=== PATIENT | female | born 1950 | race Caucasian/White ===

== ENCOUNTER 2019-05-31 13:54 | Outpatient (CLI) | payer MEDICARE, SELFPAY ==
--- NOTE | ~2019-05-31 | US_ITS ---
EXAMINATION: US venous doppler LE RT DATE: 05/31/2019 14:48 INDICATION: Right lower limb pain TECHNIQUE: Grayscale ultrasound images without and with compression and Doppler ultrasound images of the right lower extremity veins were obtained. COMPARISON: 03/09/2018 FINDINGS: The visualized portions of right common femoral vein, profunda (deep) femoral vein, femoral vein, pop liteal vein, peroneal trunk, posterior tibial veins, peroneal veins, gastrocnemius vein and greater s aphenous vein outflow remain patent. Prominent but compressible subcutaneous varicosities at the late ral aspect of the proximal right calf. IMPRESSION: 1. No deep venous thrombosis in the right lower limb. Reviewed, dictated and finalized at location A.
== END 2019-05-31 13:55 | disposition home or self-care (01) ==
LOC: CHSIMG 13:56
PROVIDERS: PCP Internal Medicine; Visit Provider Internal Medicine
DX: M79.661 Pain in right lower leg (principal)
CPT/HCPCS: 93971

== ENCOUNTER 2019-07-03 14:21 | Outpatient (CLI) | payer MEDICARE, SELFPAY ==
--- NOTE | ~2019-07-03 | XR_ITS ---
XR shoulder LT min 2V DATE: 07/03/2019 14:53 INDICATION: Left shoulder pain since April. CPPD disease TECHNIQUE: 4 views COMPARISON: 09/08/2015 left shoulder FINDINGS: There is severe osteoarthritis and mild inferior subluxation at the left glenohumeral joint . There is articular cartilage (chondrocalcinosis) glenohumeral joint consistent with given history o f chronic pyrophosphate deposition disease, as well as some soft tissue calcifications around the acr omioclavicular joint. Osteopenia. No fracture or dislocation, periosteal reaction or bone destruction of the left shoulder is detected. IMPRESSION: Severe osteoarthritis and mild inferior subluxation at the left glenohumeral joint Chondrocalcinosis of the left glenohumeral joint and calcifications around the acromioclavicular join t, consistent with history of chronic pyrophosphate deposition disease Reviewed, dictated and finalized at location A. IMPRESSION: Severe osteoarthritis and mild inferior subluxation at the left gle nohumeral joint Chondrocalcinosis of the left glenohumeral joint and calcifications around the acromioclavicular joint, consistent with history of chronic pyrophosphate depos ition disease
== END 2019-07-03 14:22 | disposition home or self-care (01) ==
LOC: CHSIMG 14:23
PROVIDERS: PCP Internal Medicine; Visit Provider Internal Medicine
DX: M25.512 Pain in left shoulder (principal)
CPT/HCPCS: 73030

== ENCOUNTER 2019-09-17 10:32 | Outpatient (CLI) | payer MEDICARE, SELFPAY ==
--- NOTE | ~2019-09-17 | XR_ITS ---
XR chest 2V DATE: 09/17/2019 10:58 INDICATION: Preoperative evaluation for colon surgery. Hypertension. TECHNIQUE: PA and lateral views COMPARISON: None FINDINGS: There is a moderately large hiatal hernia. Heart size is normal. There is aortic unfolding. No hilar or mediastinal enlargement. No pulmonary infiltrate or consolidation, pleural effusion or p ulmonary vascular congestion or pneumothorax. Surgical clips overlie the upper abdomen, consistent with cholecystectomy. IMPRESSION: Moderately large hiatal hernia No active cardiopulmonary disease Reviewed, dictated and finalized at location B.
[2019-09-17 10:43] LABS: Basophils Absolute Auto 0.04 K/mm3 (0.00-0.10); Basophils Percent Auto 0.4 % (0.0-1.0); Hematocrit 37.2 % (35.0-42.0); Hemoglobin 12.3 g/dL (11.7-13.8); Immature Granulocyte Absolute 0.07 K/mm3 (0.00-0.00); Immature Granulocyte Percent A 0.7 % (0.0-0.0); Lymphocytes Percent Auto 18.9 % (18.0-42.0); Mean Corpuscular HGB Conc 33.1 g/dL (32.0-36.0); Mean Corpuscular Hemoglobin 31.1 pg (27.0-31.0); Mean Corpuscular Volume 94.2 fL (78.0-102.0); Mean Platelet Volume 11.4 fl (9.2-11.8); Monocytes Absolute Auto 0.82 K/mm3 (0.10-0.90); Monocytes Percent Auto 8.2 % (2.0-11.0); Neutrophils Absolute Auto 6.8 K/mm3 (1.7-7.2); Neutrophils Percent Auto 67.8 % (50.0-70.0); Platelet Count Result 279 K/mm3 (150-420); Red Blood Count 3.95 M/mm3 (4.20-5.40); Red Cell Distribution Width 13.7 % (11.6-14.4)
[2019-09-17 11:35] LABS: Alanine Aminotransferase 28 U/L (14-59); Albumin Level 3.1 g/dL (3.4-5.0); Alkaline Phosphatase 132 U/L (46-116); Anion Gap 12.7 mmol/L (7-16); Aspartate Amino Transferase 24 U/L (15-37); Bilirubin,Total 0.4 mg/dL (0.00-1.00); Blood Urea Nitrogen 29 mg/dL (7-18); Calcium 9.5 mg/dL (8.5-10.1); Carbon Dioxide 29 mmol/L (21-32); Chloride 103 mmol/L (98-108); Estimated Glomerular Filt Rate 34; Glucose 160 mg/dL (70-99); Osmolality Calculated 298 mOsm/kg (285-295); Potassium 4.7 mmol/L (3.5-5.1); Sodium 140 mmol/L (136-145); Total Protein 6.9 g/dL (6.4-8.2)
[2019-09-17 15:02] LABS: Add Urine Microscopic? YES; Appearance Urine Cloudy (Clear); Bilirubin Urine Negative (Negative); Blood Urine 1+ (Negative); Color Urine Yellow (Yellow); Glucose Urine UA Negative (Negative); Ketones Urine Negative (Negative); Leukocyte Esterase Ur 3+ LEU/UL (Negative); Nitrate Urine Negative (Negative); Protein Urine Negative (Negative); Specific Grav Ur 1.015 (1.010-1.020); Urobilinogen Urine 0.2 mg/dL (0.2-1.0); pH Urine 5.5 (5.0-8.0)
[2019-09-17 15:08] LABS: Bacteria Urine 1+ /hpf; Squamous Epithelial Cell Urine Few /hpf (Few); WBC Urine >75 /hpf (0-3)
[2019-09-17 16:23] LABS: Hemoglobin A1C 7.5 % (<5.7)
== END 2019-09-17 10:33 | disposition home or self-care (01) ==
LOC: CHSLAB 10:34
PROVIDERS: PCP Internal Medicine; Visit Provider Internal Medicine
DX: I12.9 Hypertensive chronic kidney disease with stage 1 through stage 4 chronic kidney disease, or unspecified chronic kidney disease (principal); N18.9 Chronic kidney disease, unspecified; Z01.818 Encounter for other preprocedural examination; R73.01 Impaired fasting glucose; R82.90 Unspecified abnormal findings in urine
CPT/HCPCS: 36415; 71046; 80053; 81001; 83036; 85025; 87077; 87086; 87088; 87186

== ENCOUNTER 2019-10-05 14:17 | Emergency (ER) | payer MEDICARE, SELFPAY ==
[2019-10-05 14:37] VITALS: BP 139/70; PULSE 65; RESP 20; TEMP 36.7; O2SAT 97
[2019-10-05 15:05] LABS: Add Urine Microscopic? YES; Appearance Urine Clear (Clear); Bilirubin Urine Negative (Negative); Blood Urine 1+ (Negative); Color Urine Yellow (Yellow); Glucose Urine UA 3+ (Negative); Ketones Urine Negative (Negative); Leukocyte Esterase Ur Negative (Negative); Nitrate Urine Negative (Negative); Protein Urine Negative (Negative); Urobilinogen Urine 0.2 mg/dL (0.2-1.0)
--- NOTE | 2019-10-05 15:07 | ED.FEMALEGU ---
HPI - Female Genitourinary General Chief complaint: Urogenital-Female Stated complaint: pain in her blatter Source: patient and family Mode of arrival: ambulatory Limitations: no limitations History of Present Illness HPI Narrative: this is a 69-year-old female that presents status post a colon surgery for a mass approximately 1 to 2 weeks ago and was discharged with a Pederson approximately 1 week ago, the patient was seen by her primary care physician yesterday and the Pederson was removed and since then the patient was in a not able to urinate and having suprapubic fullness and pressure with the inability to pass urine. Patient denies any fever chills there is no flank pain, no hematuria no nausea vomiting no chest pain no abdominal pain. MD elicited complaint: dysuria Onset (ago): week(s) Severity: moderate Female Urogenital Radiation: Suprapubic Severity scale (1-10): 4 Quality of pain: other ( Fullness) Consistency: constant Vaginal discharge: none Vaginal bleeding: none Urinary symptoms: Difficulty Urinating Exacerbating factors: none Relieving factors: none Associated symptoms: denies other symptoms Related Data Home Medications Medication Instructions Recorded Confirmed empagliflozin [Jardiance] 10 mg PO DAILY 10/05/19 10/05/19 fexofenadine 180 mg PO DAILY 10/05/19 10/05/19 omeprazole 20 mg PO DAILY 10/05/19 10/05/19 propranolol 40 mg PO Q12H 10/05/19 10/05/19 sertraline 25 mg PO DAILY 10/05/19 10/05/19 verapamil 180 mg PO DAILY 10/05/19 10/05/19 Allergies Allergy/AdvReac Type Severity Reaction Status Date / Time diclofenac Allergy Unknown Verified 09/08/15 10:22 levofloxacin Allergy Unknown Verified 09/08/15 10:21 misoprostol Allergy Unknown Verified 09/08/15 10:22 nortriptyline Allergy Unknown Verified 09/08/15 10:22 paroxetine Allergy Unknown Verified 09/08/15 10:22 Sulfa (Sulfonamide Allergy Unknown Verified 09/08/15 10:21 Antibiotics) Review of Systems Review of Systems: All systems reviewed & are unremarkable except as noted in HPI and below PMFSH Past Medical History Medical History Depression Diabetes mellitus GERD (gastroesophageal reflux disease) HTN (hypertension) Family History Family History Other Diabetes mellitus Family history of arthritis Family history of malignant neoplasm Hypertension Social History Social History Smoking status: Former smoker Smoking end date: 03/13/01 Alcohol intake: current Exam Const: General: no acute distress and alert Orientation/consciousness: patient oriented x3 HENMT: Head: normal to inspection Eyes: Conjunctivae: conjunctivae normal Pupils: Equal, round and reactive pupils present EOM: EOMs intact bilaterally Neck: Neck: normal visual inspection, no lymphadenopathy and no meningeal signs Chest: Chest palpation & inspection: normal inspection of the chest Resp: Effort & Inspection: normal respiratory effort Auscultation: clear to auscultation bilaterally Cardio: Rate: regular rate Rhythm: regular rhythm GI: GI Palp: Yes Soft to palpation : General: Yes no CVA tenderness Other: suprapubic tenderness Urinary Catheter: Urinary Catheter: patent and draining and urine clear Back/Spine/Pelvis: Back: no CVA tenderness Skin: General skin exam: normal color Rashes: no rashes Neuro: General: patient oriented x3 and moves all extremities Course Course Emergency Course: Pederson was replaced patient doing much better less fullness currently there was no fevers no. Vital Signs Vital signs: Vital Signs Temperature 36.7 C 10/05/19 14:37 Pulse Rate 65 10/05/19 14:37 Respiratory Rate 20 10/05/19 14:37 Blood Pressure 139/70 10/05/19 14:37 Pulse Oximetry 97 10/05/19 14:37 Temperature 36.7 C 10/05/19 14:37 Pulse Rate 65 07/2
[2019-10-05 15:09] LABS: RBC Urine 0-2 /hpf (0-2); Squamous Epithelial Cell Urine Few /hpf (Few); WBC Urine None seen /hpf (0-3)
[2019-10-05 15:10] LABS: Bacteria Urine None seen /hpf; Mucus Urine Few /lpf
[2019-10-05 15:39] LABS: Alanine Aminotransferase 38 U/L (14-59); Albumin Level 2.8 g/dL (3.4-5.0); Alkaline Phosphatase 99 U/L (46-116); Anion Gap 13.3 mmol/L (7-16); Aspartate Amino Transferase 27 U/L (15-37); Bilirubin,Total 0.3 mg/dL (0.00-1.00); Blood Urea Nitrogen 27 mg/dL (7-18); Carbon Dioxide 25 mmol/L (21-32); Chloride 101 mmol/L (98-108); Estimated CRCL calculation 38 ml/min; Estimated Glomerular Filt Rate 33; Glucose 139 mg/dL (70-99); Osmolality Calculated 287 mOsm/kg (285-295); Potassium 4.3 mmol/L (3.5-5.1); Sodium 135 mmol/L (136-145)
[2019-10-05 16:14] VITALS: BP 140/85; PULSE 72; RESP 18; TEMP 36.6; O2SAT 97
== END 2019-10-05 16:18 | disposition home or self-care (01) ==
PROVIDERS: Emergency Provider Emergency Medicine; PCP Internal Medicine
DX: R33.9 Retention of urine, unspecified (principal)
CPT/HCPCS: 36415; 80053; 81001; 99282; 99283

== ENCOUNTER 2019-10-14 09:09 | Outpatient (CLI) | payer MEDICARE, SELFPAY ==
--- NOTE | 2019-10-14 09:27 | PC.NURSE ---
0915 Patient here for a yañez catheter indwelling removeal. Has had it in since around September 29, 2019 s/p some surgeries patient has had. #16 F catheter removed with ease. Clear yellow urine noted in bag-discarded. Instructed on catheter removal and able to void without it. Safe exit of hospital.
== END 2019-10-14 09:10 | disposition home or self-care (01) ==
LOC: CHSTREATRM 09:10
PROVIDERS: PCP Internal Medicine; Visit Provider Internal Medicine
DX: Z46.6 Encounter for fitting and adjustment of urinary device (principal)
CPT/HCPCS: 51702

== ENCOUNTER 2019-11-08 10:55 | Outpatient (CLI) | payer MEDICARE, SELFPAY ==
--- NOTE | ~2019-11-08 | US_ITS ---
EXAMINATION: US venous doppler [facility] DATE: 11/08/2019 13:01 INDICATION: Lower limb edema. TECHNIQUE: Grayscale ultrasound images without and with compression and Doppler ultrasound images of the bilateral lower extremity veins were obtained. COMPARISON: Ultrasound 05/31/2019 FINDINGS: The visualized portions of right common femoral vein, profunda (deep) femoral vein, femoral vein, pop liteal vein, peroneal veins, posterior tibial veins, and greater saphenous vein outflow are patent. The visualized portions of left common femoral vein, profunda femoral vein, femoral vein, popliteal v ein, peroneal veins, posterior tibial veins, and greater saphenous vein outflow are patent. IMPRESSION: 1. No deep venous thrombosis. Reviewed, dictated and finalized at location B.
[2019-11-08 11:30] LABS: Basophils Absolute Auto 0.04 K/mm3 (0.00-0.10); Basophils Percent Auto 0.4 % (0.0-1.0); Eosinophils Percent Auto 3.2 % (1.0-6.0); Hematocrit 33.2 % (35.0-42.0); Hemoglobin 10.3 g/dL (11.7-13.8); Immature Granulocyte Absolute 0.05 K/mm3 (0.00-0.00); Immature Granulocyte Percent A 0.5 % (0.0-0.0); Lymphocytes Absolute Auto 1.74 K/mm3 (1.10-4.50); Lymphocytes Percent Auto 18.5 % (18.0-42.0); Mean Corpuscular Hemoglobin 29.5 pg (27.0-31.0); Mean Corpuscular Volume 95.1 fL (78.0-102.0); Mean Platelet Volume 11.7 fl (9.2-11.8); Monocytes Absolute Auto 0.99 K/mm3 (0.10-0.90); Monocytes Percent Auto 10.5 % (2.0-11.0); Neutrophils Absolute Auto 6.3 K/mm3 (1.7-7.2); Neutrophils Percent Auto 66.9 % (50.0-70.0); Platelet Count Result 245 K/mm3 (150-420); Red Blood Count 3.49 M/mm3 (4.20-5.40); Red Cell Distribution Width 13.9 % (11.6-14.4); White Blood Count 9.4 K/mm3 (4.8-10.8)
[2019-11-08 11:58] LABS: BNP 500 pg/mL (0-100)
[2019-11-08 12:55] LABS: Alanine Aminotransferase 20 U/L (14-59); Albumin Level 2.8 g/dL (3.4-5.0); Alkaline Phosphatase 124 U/L (46-116); Anion Gap 8 mmol/L (8-16); Aspartate Amino Transferase 26 U/L (15-37); Bilirubin,Total 0.2 mg/dL (0.00-1.00); Blood Urea Nitrogen 31 mg/dL (7-18); Calcium 8.5 mg/dL (8.5-10.1); Carbon Dioxide 27 mmol/L (21-32); Chloride 106 mmol/L (98-108); Estimated Glomerular Filt Rate 33; Glucose 131 mg/dL (70-99); Osmolality Calculated 300 mOsm/kg (285-295); Potassium 4.5 mmol/L (3.5-5.1); Sodium 141 mmol/L (136-145); Total Protein 6.8 g/dL (6.4-8.2)
== END 2019-11-08 10:56 | disposition home or self-care (01) ==
PROVIDERS: PCP Internal Medicine; Visit Provider Internal Medicine
DX: R60.9 Edema, unspecified (principal); R21 Rash and other nonspecific skin eruption; I50.9 Heart failure, unspecified
CPT/HCPCS: 36415; 80053; 83880; 85025; 93970

== ENCOUNTER 2019-11-22 08:11 | Outpatient (CLI) | payer MEDICARE, SELFPAY ==
[2019-11-22 08:21] LABS: Basophils Absolute Auto 0.05 K/mm3 (0.00-0.10); Basophils Percent Auto 0.4 % (0.0-1.0); Eosinophils Absolute Auto 0.37 K/mm3 (0.02-0.50); Eosinophils Percent Auto 2.7 % (1.0-6.0); Hematocrit 33.9 % (35.0-42.0); Hemoglobin 10.8 g/dL (11.7-13.8); Immature Granulocyte Absolute 0.09 K/mm3 (0.00-0.00); Immature Granulocyte Percent A 0.7 % (0.0-0.0); Lymphocytes Absolute Auto 1.91 K/mm3 (1.10-4.50); Mean Corpuscular HGB Conc 31.9 g/dL (32.0-36.0); Mean Corpuscular Hemoglobin 28.9 pg (27.0-31.0); Mean Corpuscular Volume 90.6 fL (78.0-102.0); Monocytes Absolute Auto 1.52 K/mm3 (0.10-0.90); Monocytes Percent Auto 11.1 % (2.0-11.0); Neutrophils Absolute Auto 9.8 K/mm3 (1.7-7.2); Neutrophils Percent Auto 71.1 % (50.0-70.0); Platelet Count Result 294 K/mm3 (150-420); Red Blood Count 3.74 M/mm3 (4.20-5.40); Red Cell Distribution Width 13.5 % (11.6-14.4); White Blood Count 13.7 K/mm3 (4.8-10.8)
[2019-11-22 09:25] LABS: BNP 516 pg/mL (0-100)
[2019-11-22 09:51] LABS: Alanine Aminotransferase 40 U/L (14-59); Albumin Level 3.3 g/dL (3.4-5.0); Alkaline Phosphatase 139 U/L (46-116); Anion Gap 10 mmol/L (8-16); Aspartate Amino Transferase 33 U/L (15-37); Bilirubin,Total 0.4 mg/dL (0.00-1.00); Blood Urea Nitrogen 21 mg/dL (7-18); Calcium 9.1 mg/dL (8.5-10.1); Carbon Dioxide 28 mmol/L (21-32); Chloride 102 mmol/L (98-108); Estimated Glomerular Filt Rate 37; Glucose 130 mg/dL (70-99); Osmolality Calculated 295 mOsm/kg (285-295); Potassium 4.6 mmol/L (3.5-5.1); Sodium 140 mmol/L (136-145); Total Protein 8.2 g/dL (6.4-8.2)
== END 2019-11-22 08:12 | disposition home or self-care (01) ==
LOC: CHSLAB 08:12
PROVIDERS: PCP Internal Medicine; Visit Provider Internal Medicine
DX: R60.9 Edema, unspecified (principal); I50.9 Heart failure, unspecified
CPT/HCPCS: 36415; 80053; 83880; 85025

== ENCOUNTER 2019-12-23 10:33 | Outpatient (CLI) | payer MEDICARE, SELFPAY ==
[2019-12-23 11:02] LABS: Basophils Absolute Auto 0.06 K/mm3 (0.00-0.10); Basophils Percent Auto 0.5 % (0.0-1.0); Eosinophils Absolute Auto 0.36 K/mm3 (0.02-0.50); Eosinophils Percent Auto 3.2 % (1.0-6.0); Immature Granulocyte Absolute 0.06 K/mm3 (0.00-0.00); Immature Granulocyte Percent A 0.5 % (0.0-0.0); Lymphocytes Absolute Auto 1.99 K/mm3 (1.10-4.50); Lymphocytes Percent Auto 17.7 % (18.0-42.0); Mean Corpuscular HGB Conc 31.3 g/dL (32.0-36.0); Mean Corpuscular Hemoglobin 27.2 pg (27.0-31.0); Mean Platelet Volume 11.3 fl (9.2-11.8); Monocytes Absolute Auto 1.21 K/mm3 (0.10-0.90); Monocytes Percent Auto 10.8 % (2.0-11.0); Neutrophils Absolute Auto 7.5 K/mm3 (1.7-7.2); Neutrophils Percent Auto 67.3 % (50.0-70.0); Platelet Count Result 271 K/mm3 (150-420); Red Blood Count 3.68 M/mm3 (4.20-5.40); Red Cell Distribution Width 14.7 % (11.6-14.4); White Blood Count 11.2 K/mm3 (4.8-10.8)
[2019-12-23 11:22] LABS: BNP 677 pg/mL (0-100)
[2019-12-23 11:35] LABS: Alanine Aminotransferase 26 U/L (14-59); Albumin Level 2.9 g/dL (3.4-5.0); Alkaline Phosphatase 137 U/L (46-116); Anion Gap 9 mmol/L (8-16); Aspartate Amino Transferase 22 U/L (15-37); Bilirubin,Total 0.4 mg/dL (0.00-1.00); Blood Urea Nitrogen 20 mg/dL (7-18); Calcium 8.9 mg/dL (8.5-10.1); Carbon Dioxide 28 mmol/L (21-32); Chloride 104 mmol/L (98-108); Estimated Glomerular Filt Rate 39; Glucose 112 mg/dL (70-99); Osmolality Calculated 295 mOsm/kg (285-295); Potassium 4.5 mmol/L (3.5-5.1); Sodium 141 mmol/L (136-145); Total Protein 6.9 g/dL (6.4-8.2)
== END 2019-12-23 10:34 | disposition home or self-care (01) ==
LOC: CHSLAB 10:35
PROVIDERS: PCP Internal Medicine; Visit Provider Internal Medicine
DX: N18.30 Chronic kidney disease, stage 3 unspecified (principal); D64.9 Anemia, unspecified; I50.9 Heart failure, unspecified
CPT/HCPCS: 36415; 80053; 83880; 85025

== ENCOUNTER 2020-01-28 08:56 | Outpatient (CLI) | payer MEDICARE, SELFPAY ==
[2020-01-28 09:10] LABS: Basophils Absolute Auto 0.07 K/mm3 (0.00-0.10); Basophils Percent Auto 0.6 % (0.0-1.0); Eosinophils Absolute Auto 0.49 K/mm3 (0.02-0.50); Eosinophils Percent Auto 4.3 % (1.0-6.0); Hematocrit 33.5 % (35.0-42.0); Hemoglobin 10.3 g/dL (11.7-13.8); Immature Granulocyte Absolute 0.05 K/mm3 (0.00-0.00); Immature Granulocyte Percent A 0.4 % (0.0-0.0); Lymphocytes Absolute Auto 2.76 K/mm3 (1.10-4.50); Lymphocytes Percent Auto 24.1 % (18.0-42.0); Mean Corpuscular HGB Conc 30.7 g/dL (32.0-36.0); Mean Corpuscular Hemoglobin 26.8 pg (27.0-31.0); Mean Platelet Volume 11.2 fl (9.2-11.8); Monocytes Absolute Auto 1.18 K/mm3 (0.10-0.90); Monocytes Percent Auto 10.3 % (2.0-11.0); Neutrophils Absolute Auto 6.9 K/mm3 (1.7-7.2); Neutrophils Percent Auto 60.3 % (50.0-70.0); Platelet Count Result 331 K/mm3 (150-420); Red Blood Count 3.85 M/mm3 (4.20-5.40); Red Cell Distribution Width 15.9 % (11.6-14.4); White Blood Count 11.5 K/mm3 (4.8-10.8)
[2020-01-28 09:38] LABS: Hemoglobin A1C 7.4 % (<5.7)
[2020-01-28 09:44] LABS: BNP 656 pg/mL (0-100)
[2020-01-28 10:13] LABS: Alanine Aminotransferase 25 U/L (14-59); Albumin Level 3.3 g/dL (3.4-5.0); Alkaline Phosphatase 127 U/L (46-116); Anion Gap 7 mmol/L (8-16); Aspartate Amino Transferase 20 U/L (15-37); Bilirubin,Total 0.3 mg/dL (0.00-1.00); Blood Urea Nitrogen 27 mg/dL (7-18); Calcium 9.7 mg/dL (8.5-10.1); Carbon Dioxide 29 mmol/L (21-32); Chloride 104 mmol/L (98-108); Estimated Glomerular Filt Rate 35; Glucose 114 mg/dL (70-99); Osmolality Calculated 296 mOsm/kg (285-295); Potassium 4.7 mmol/L (3.5-5.1); Sodium 140 mmol/L (136-145); Total Protein 7.9 g/dL (6.4-8.2)
== END 2020-01-28 08:57 | disposition home or self-care (01) ==
LOC: CHSLAB 08:59
PROVIDERS: PCP Internal Medicine; Visit Provider Internal Medicine
DX: I50.9 Heart failure, unspecified (principal); E11.9 Type 2 diabetes mellitus without complications
CPT/HCPCS: 36415; 80053; 83036; 83880; 85025

== ENCOUNTER 2020-01-30 12:14 | Outpatient (CLI) | payer MEDICARE, SELFPAY | END 2020-01-30 12:15 | disposition home or self-care (01) | PROVIDERS: PCP Internal Medicine; Visit Provider Internal Medicine | DX: I50.9 Heart failure, unspecified (principal); E11.9 Type 2 diabetes mellitus without complications | CPT/HCPCS: 93306 ==

== ENCOUNTER 2020-02-12 10:17 | Outpatient (CLI) | payer MEDICARE, SELFPAY ==
[2020-02-12 10:31] LABS: Basophils Absolute Auto 0.05 K/mm3 (0.00-0.10); Basophils Percent Auto 0.5 % (0.0-1.0); Eosinophils Absolute Auto 0.36 K/mm3 (0.02-0.50); Eosinophils Percent Auto 3.6 % (1.0-6.0); Hematocrit 34.2 % (35.0-42.0); Hemoglobin 10.6 g/dL (11.7-13.8); Immature Granulocyte Absolute 0.04 K/mm3 (0.00-0.00); Immature Granulocyte Percent A 0.4 % (0.0-0.0); Lymphocytes Absolute Auto 2.23 K/mm3 (1.10-4.50); Mean Corpuscular Hemoglobin 26.7 pg (27.0-31.0); Mean Corpuscular Volume 86.1 fL (78.0-102.0); Mean Platelet Volume 11.2 fl (9.2-11.8); Monocytes Absolute Auto 1.02 K/mm3 (0.10-0.90); Monocytes Percent Auto 10.1 % (2.0-11.0); Neutrophils Absolute Auto 6.4 K/mm3 (1.7-7.2); Neutrophils Percent Auto 63.4 % (50.0-70.0); Platelet Count Result 270 K/mm3 (150-420); Red Blood Count 3.97 M/mm3 (4.20-5.40); Red Cell Distribution Width 16.1 % (11.6-14.4); White Blood Count 10.1 K/mm3 (4.8-10.8)
[2020-02-12 10:56] LABS: BNP 402 pg/mL (0-100)
[2020-02-12 11:29] LABS: Alanine Aminotransferase 29 U/L (14-59); Albumin Level 3.3 g/dL (3.4-5.0); Alkaline Phosphatase 136 U/L (46-116); Anion Gap 8 mmol/L (8-16); Aspartate Amino Transferase 29 U/L (15-37); Bilirubin,Total 0.3 mg/dL (0.00-1.00); Blood Urea Nitrogen 29 mg/dL (7-18); Calcium 9.5 mg/dL (8.5-10.1); Carbon Dioxide 29 mmol/L (21-32); Chloride 104 mmol/L (98-108); Estimated Glomerular Filt Rate 35; Glucose 117 mg/dL (70-99); Osmolality Calculated 298 mOsm/kg (285-295); Potassium 4.6 mmol/L (3.5-5.1); Sodium 141 mmol/L (136-145); Total Protein 7.7 g/dL (6.4-8.2)
== END 2020-02-12 10:18 | disposition home or self-care (01) ==
PROVIDERS: PCP Internal Medicine; Visit Provider Internal Medicine
DX: I50.9 Heart failure, unspecified (principal); D64.9 Anemia, unspecified
CPT/HCPCS: 36415; 80053; 83880; 85025

== ENCOUNTER 2020-02-27 10:24 | Outpatient (CLI) | payer MEDICARE, SELFPAY ==
[2020-02-27 11:40] LABS: Alanine Aminotransferase 27 U/L (14-59); Albumin Level 3.3 g/dL (3.4-5.0); Alkaline Phosphatase 132 U/L (46-116); Anion Gap 7 mmol/L (8-16); Aspartate Amino Transferase 23 U/L (15-37); Bilirubin,Total 0.4 mg/dL (0.00-1.00); Blood Urea Nitrogen 28 mg/dL (7-18); Calcium 9.3 mg/dL (8.5-10.1); Carbon Dioxide 29 mmol/L (21-32); Chloride 101 mmol/L (98-108); Estimated Glomerular Filt Rate 35; Glucose 125 mg/dL (70-99); Osmolality Calculated 290 mOsm/kg (285-295); Potassium 4.4 mmol/L (3.5-5.1); Sodium 137 mmol/L (136-145); Total Protein 7.6 g/dL (6.4-8.2)
== END 2020-02-27 10:25 | disposition home or self-care (01) ==
LOC: CHSLAB 10:25
PROVIDERS: PCP Internal Medicine; Visit Provider Internal Medicine
DX: I50.9 Heart failure, unspecified (principal)
CPT/HCPCS: 36415; 80053

== ENCOUNTER 2020-02-28 09:53 | Outpatient (CLI) | payer MEDICARE, SELFPAY ==
[2020-02-29 18:58] LABS: SARS-CoV-2 RNA PCR Negative
== END 2020-02-28 09:54 | disposition home or self-care (01) ==
LOC: CHSLAB 09:55
PROVIDERS: PCP Internal Medicine; Visit Provider Internal Medicine
DX: Z20.828 Contact with and (suspected) exposure to other viral communicable diseases (principal); Z01.818 Encounter for other preprocedural examination
CPT/HCPCS: 87635; C9803; U0003

== ENCOUNTER 2020-04-14 12:20 | Outpatient (CLI) | payer MEDICARE, SELFPAY ==
--- NOTE | ~2020-04-14 | US_ITS ---
EXAMINATION: US carotid duplex BI DATE: 04/14/2020 14:51 INDICATION: Bilateral carotid stenosis. TECHNIQUE: Grayscale, color Doppler, and pulsed Doppler images of the cervical carotid arteries were obtained. The degree of vessel stenosis is placed in one of the following categories: normal, <50%, 5 0-69%, >=70% but less than near-occlusion, near-occlusion, or total occlusion. Note that percent sten osis relative to normal distal artery lumen diameter is indirectly measured from velocity measurement s as described by Sumit, et al. Radiology 2003; 229:340-346. COMPARISON: Ultrasound 01/23/2015 FINDINGS: RIGHT: The right common carotid artery (CCA) peak systolic velocity (PSV) is 51 cm/s. The right internal car otid artery (ICA) PSV is 80 cm/s. The right ICA end-diastolic velocity (EDV) is 18 cm/s. The right IC A/CCA PSV ratio is 1.6. Grayscale and color Doppler images yield an estimate of <50% diameter reducti on from plaque in the ICA. There is antegrade flow in the right vertebral artery. LEFT: The left CCA PSV is 52 cm/s. The left ICA PSV is 65 cm/s. The left ICA EDV is 23 cm/s. The left ICA/C CA PSV ratio is 1.2. Grayscale and color Doppler images yield an estimate of <50% diameter reduction from plaque in the ICA. There is antegrade flow in the left vertebral artery. IMPRESSION: 1. <50% stenosis in the right internal carotid artery. 2. <50% stenosis in the left internal carotid artery. Reviewed, dictated and finalized at location A. [facility]
--- NOTE | ~2020-04-14 | DEXA_ITS ---
Bone Density Report Name: Halina Colin Age: 69 Sex: Female Ethnicity: White Date of : 1950 Indication: postmenopausal; screening for osteoporosis; height loss; inflammatory bowel disease; hysterectomy; rheumatoid arthritis; Referring Provider: Jose Tovar Study: Bone densitometry was performed. Exam Date: April 14, 2020 Accession number: [id number] Bone Density: Region BMD T-score Z-score Classification AP Spine(L1-L4) 1.314 2.4 4.5 Normal Femoral Neck (Left) 0.774 -0.7 1.1 Normal Total Hip (Left) 0.948 0.0 1.5 Normal Femoral Neck (Right) 0.681 -1.5 0.2 Osteopenia Total Hip (Right) 0.913 -0.2 1.2 Normal Femoral Neck Mean 0.727 -1.1 0.6 Osteopenia Total Hip Mean 0.930 -0.1 1.3 Normal World Health Organization criteria for BMD impression classify patients as: Normal (T-score at or above -1.0), Osteopenia (T-score between -1.0 and -2.5), or Osteoporosis (T-score at or below -2.5). 10-year Fracture Risk(1): Major Osteoporotic Fracture 11% Hip Fracture 1.4% Reported Risk Factors: [place] (), Neck BMD=0.681, BMI=45.7, rheumatoid arthritis (1) FRAX(R) Version 3.08. Fracture probability calculated for an untreated patient. Fracture probability may be lower if the patient has received treatment. Previous Exams: Region Exam Age BMD T-score BMD Change BMD Change Date g/cm2 vs Baseline vs Previous AP Spine (L1-L4) 04/14/2020 69 1.314 2.4 -0.072 (-5.2%) -0.060 (-4.3%) 11/05/2012 62 1.373 3.0 -0.012 (-0.9%) -0.023 (-1.7%) 11/12/2010 60 1.397 3.2 0.011 (0.8%) 0.011 (0.8%) 01/22/2007 56 1.386 3.1 Total Hip(Left) 04/14/2020 69 0.948 0.0 -0.146 (-13.3% -0.076 (-7.4%) 11/05/2012 62 1.023 0.7 -0.070 (-6.4%) -0.027 (-2.5%) 11/12/2010 60 1.050 0.9 -0.043 (-4.0%) -0.043 (-4.0%) 01/22/2007 56 1.093 1.2 Total Hip(Right) 04/14/2020 69 0.913 -0.2 -0.152 (-14.3% -0.086 (-8.6%) 11/05/2012 62 0.999 0.5 -0.067 (-6.3%) -0.025 (-2.4%) 11/12/2010 60 1.023 0.7 -0.042 (-4.0%) -0.042 (-4.0%) 01/22/2007 56 1.065 1.0 *Denotes significance at 95% confidence level, LSC for AP Spine = 0.022 g/cm2, LSC for Total Hip = 0.027 g/cm2 # Denotes dissimilar scan types or analysis methods Clinical Information Provided by Patient: Has rheumatoid arthritis Has used the following medications: HRT (i.e. estrogen/hormone therapy), Vitamin D Has the following medical conditions: Inflammatory bowel
--- NOTE | 2020-04-14 12:40 | ECHO_ITS ---
Patient Info Name: Halina Colin Age: 69 years : 1950 Gender: Female Ht: 62 in Wt: 250 lbs BSA: 2.30 m2 HR: 60 bpm BP: 104 / 83 mmHg Heart Rhythm: Sinus Rhythm Technical Quality: Fair Exam Date: 04/14/2020 12:52 PM Exam Location: [facility] Patient Status: Outpatient Admit Date: 04/14/2020 Staff Ordering Physician: Jose Tovar MD Creative Developer: Clarisse Norton RDCS Attending Provider: Jose Tovar MD Referring Physician: Guy THOMPSON; Exam Type: CA echo doppler color flow Study Info Indications I50.9 - Heart failure, unspecified Strain analysis performed. Complete two-dimensional, color flow and Doppler transthoracic echocardiogram is performed. History/Risk Factors Hypertension: Yes Dyslipidemia: No Congenital Heart Disease (CHD): No Diabetic Therapy: Oral Peripheral Arterial Disease (PAD): No Myocardial Infarction (SC): No Chronic Lung Disease: No Obesity: Yes Coronary Artery Disease (CAD) No Congestive Heart Failure (CHF): Hx CHF Cardiomyopathy/LV Systolic Dysfunction: No Diabetes Mellitus: Type II COPD: No Tobacco Use: Former Cerebrovascular Disease: No Family History: Diabetes Mellitus Deep Vein Thrombosis (DVT): None Frailty Scale (CSHA): 5: Mildly Frail Cardiac Arrest: No Summary 1. Left ventricular chamber dimension is normal. 2. Left ventricular systolic function is normal, estimated at 60-65%. 3. There is mildly increased left ventricular wall thickness. 4. The left ventricular diastolic function is abnormal. 5. E/e' 10 is mildly elevated. 6. Left atrial chamber dimension is mildly enlarged. 7. There is mild tricuspid valve regurgitation. 8. Mild pulmonary hypertension, estimated pulmonary arterial systolic pressure is 41 mmHg. 9. Complete two-dimensional, color flow and Doppler transthoracic echocardiogram is performed. Recommendations * Continue medical therapy for diabetes. Left Ventricle E/e' 10 is mildly elevated. Left ventricular chamber dimension is normal. Left ventricular systolic function is normal, estimated at 60-65%. There is mildly increased left ventricular wall thickness. The left ventricular diastolic function is abnormal. Right Ventricle Right ventricular chamber dimension is normal. Right ventricular systolic function is normal. Left Atria Left atrial chamber dimension is mildly enlarged. Right Atria Right atrial chamber dimension is normal. Aortic Valve The aortic valve is trileaflet. There is no aortic valve stenosis. There is no aortic valve regurgitation. Pulmonic Valve There is no pulmonic regurgitation. Mitral Valve There is no mitral valve stenosis. There is no mitral valve regurgitation. Tricuspid Valve There is mild tricuspid valve regurgitation. Mild pulmonary hypertension, estimated pulmonary arterial systolic pressure is 41 mmHg. Pericardium/Pleural There is no pericardial effusion. Inferior Vena Cava Normal inferior vena cava with >50% collapse upon inspiration consistent with normal right atrial pressure, 5 mmHg. Aorta The aortic root size at the sinus of Valsalva is normal. Left Ventricular Outflow Tract Name Value Normal LVOT 2D
== END 2020-04-14 12:21 | disposition home or self-care (01) ==
PROVIDERS: PCP Internal Medicine; Visit Provider Internal Medicine
DX: I50.9 Heart failure, unspecified (principal); R09.89 Other specified symptoms and signs involving the circulatory and respiratory systems; M81.0 Age-related osteoporosis without current pathological fracture
CPT/HCPCS: 77080; 93306; 93880

== ENCOUNTER 2020-04-30 11:20 | Outpatient (CLI) | payer MEDICARE, SELFPAY ==
[2020-04-30 11:30] LABS: Basophils Absolute Auto 0.08 K/mm3 (0.00-0.10); Basophils Percent Auto 0.7 % (0.0-1.0); Eosinophils Absolute Auto 0.32 K/mm3 (0.02-0.50); Eosinophils Percent Auto 2.9 % (1.0-6.0); Hematocrit 35.7 % (35.0-42.0); Hemoglobin 11.2 g/dL (11.7-13.8); Immature Granulocyte Absolute 0.05 K/mm3 (0.00-0.00); Immature Granulocyte Percent A 0.4 % (0.0-0.0); Lymphocytes Absolute Auto 1.67 K/mm3 (1.10-4.50); Mean Corpuscular HGB Conc 31.4 g/dL (32.0-36.0); Mean Corpuscular Hemoglobin 26.5 pg (27.0-31.0); Mean Corpuscular Volume 84.6 fL (78.0-102.0); Mean Platelet Volume 11.1 fl (9.2-11.8); Monocytes Absolute Auto 1.02 K/mm3 (0.10-0.90); Monocytes Percent Auto 9.1 % (2.0-11.0); Neutrophils Percent Auto 71.9 % (50.0-70.0); Platelet Count Result 297 K/mm3 (150-420); Red Blood Count 4.22 M/mm3 (4.20-5.40); Red Cell Distribution Width 16.1 % (11.6-14.4); White Blood Count 11.2 K/mm3 (4.8-10.8)
[2020-04-30 11:53] LABS: BNP 534 pg/mL (0-100)
[2020-04-30 12:14] LABS: Hemoglobin A1C 7.5 % (<5.7)
[2020-04-30 12:56] LABS: Alanine Aminotransferase 28 U/L (14-59); Albumin Level 3.3 g/dL (3.4-5.0); Alkaline Phosphatase 133 U/L (46-116); Anion Gap 8 mmol/L (8-16); Aspartate Amino Transferase 18 U/L (15-37); Bilirubin,Total 0.3 mg/dL (0.00-1.00); Blood Urea Nitrogen 19 mg/dL (7-18); Calcium 9.6 mg/dL (8.5-10.1); Carbon Dioxide 30 mmol/L (21-32); Chloride 102 mmol/L (98-108); Cholesterol 227 mg/dL (0-200); Estimated Glomerular Filt Rate 37; Ferritin 18 ng/mL (8-252); Free T3 2.45 pg/mL (2.18-3.98); Free T4 Free Thyroxine 0.85 ng/dL (0.76-1.46); Glucose 127 mg/dL (70-99); HDL Direct 70 mg/dL (40-60); Iron 49 ug/dL (50-170); LDL Cholesterol Calculated 127 mg/dL (<130); Osmolality Calculated 294 mOsm/kg (285-295); Percent Iron Saturation 13 % (12-57); Potassium 4.4 mmol/L (3.5-5.1); Sodium 140 mmol/L (136-145); Thyroid Stimulating Hormone 2.17 uIU/mL (0.36-3.74); Total Protein 7.5 g/dL (6.4-8.2); Triglycerides 152 mg/dL (0-150); Uric Acid 5.7 mg/dL (2.6-6.0); Vitamin B12 515 pg/mL (193-986)
[2020-04-30 14:10] LABS: Add Urine Microscopic? YES; Appearance Urine Cloudy (Clear); Bilirubin Urine Negative (Negative); Blood Urine 2+ (Negative); Color Urine Yellow (Yellow); Glucose Urine UA Negative (Negative); Ketones Urine Negative (Negative); Leukocyte Esterase Ur 3+ (Negative); Nitrate Urine Negative (Negative); Protein Urine 1+ (Negative); Specific Grav Ur 1.025 (1.010-1.020); Urobilinogen Urine 0.2 mg/dL (0.2-1.0)
[2020-04-30 14:21] LABS: Squamous Epithelial Cell Urine Few /hpf (Few); WBC Urine >75 /hpf (0-3)
[2020-04-30 14:22] LABS: Bacteria Urine 3+ /hpf
[2020-04-30 14:30] LABS: Creatinine Urine 114.48 mg/dL (40-278)
[2020-04-30 14:32] LABS: MALB Creatinine Ratio 247.8 mg/g (0-30); Microalbumin Urine Random 283.7 mg/L
[2020-05-04 02:44] LABS: Vitamin D 25 Hydroxy 23 ng/mL (30-100)
== END 2020-04-30 11:21 | disposition home or self-care (01) ==
LOC: CHSLAB 11:21
PROVIDERS: PCP Internal Medicine; Visit Provider Internal Medicine
DX: M81.0 Age-related osteoporosis without current pathological fracture (principal); N18.30 Chronic kidney disease, stage 3 unspecified; E78.2 Mixed hyperlipidemia; G62.9 Polyneuropathy, unspecified; E79.0 Hyperuricemia without signs of inflammatory arthritis and tophaceous disease; N39.0 Urinary tract infection, site not specified; I50.9 Heart failure, unspecified
CPT/HCPCS: 36415; 80053; 80061; 81001; 82043; 82306; 82607; 82728; 83036; 83540; 83550; 83880; 84439; 84443; 84481; 84550; 85025; 87077; 87086; 87088; 87186

== ENCOUNTER 2020-05-26 15:04 | Outpatient (RCR) | payer MEDICARE, SELFPAY ==
--- NOTE | 2020-05-26 16:01 | PTOPEVAL ---
Thank you for referring Halina Colin to [facility] The patient is scheduled to be seen for therapy? __3__x/week for 12 visits. Please review, sign, date and return this plan of care TIM. I agree with and certify that the following plan of care is medically necessary. Referring Physician Date Admitting Provider: Attending Provider: Jose Tovar MD Referring Provider: *PT Outpatient Evaluation Start: 05/26/20 15:08 Freq: Status: Active Protocol: Document 05/26/20 15:08 ANNALISE (Rec: 05/26/20 16:01 ANNALISE [email or web address]) Therapy Assessment Status Assessment Status Assessment Status Evaluation Outpatient Past Medical History Neurological History Hx Neurological Disorders No Significant History Cardiovascular History Hx Hypertension Yes Respiratory History Hx Respiratory Disorders No Significant History Gastrointestinal History Hx Cholecystectomy Yes Hx Other Gastrointestinal Disorders Yes: 8 inches of large bowel removed (colon) Genitourinary History Hx Renal Disease Yes Musculoskeletal History Hx Arthritis Yes Hematological History Hx Hematological Disorders No Significant History Endocrine History Hx Diabetes Yes HEENT History Hx HEENT Disorders No Significant History Integumentary History Hx Skin Disorders No Significant History Reproductive History Hx Hysterectomy Yes Psychosocial History Hx Psychiatric Disorders No Significant History Pain History History of Any Previous or Ongoing No Significant History Instance of Pain Anesthesia History Hx Anesthesia Reactions No Significant History Evaluation Information Problem Diagnosis general deconditioning, back pain, right knee pain Onset 05/07/20 Subjective Information Pt. reports that she has been Query Text:As Reported By Patient/ experinecing right knee pain Family for about 2 years, but it is worsening. She states that knee pain limits her from more energetic activities. She reports that she cannot stand for greater than a few minutes without severe increasing knee pain. She reports that she underwent a left knee replacement several years ago. She reports that she also has left shoulder pain that limits her espeically with overhead a
--- NOTE | 2020-06-04 13:58 | PCPTNOTE ---
patient called and cancelled appt today. [facility]
== END 2020-06-24 16:00 | disposition home or self-care (01) ==
LOC: CHSPT 15:04
PROVIDERS: PCP Internal Medicine; Visit Provider Internal Medicine
DX: M54.5 Low back pain (principal); R26.81 Unsteadiness on feet
CPT/HCPCS: 97014; 97110; 97161; G0283

== ENCOUNTER 2020-06-03 10:29 | Outpatient (CLI) | payer MEDICARE, SELFPAY ==
[2020-06-03 11:09] LABS: Anion Gap 12 mmol/L (8-16); Blood Urea Nitrogen 26 mg/dL (7-18); Calcium 9.3 mg/dL (8.5-10.1); Carbon Dioxide 25 mmol/L (21-32); Chloride 102 mmol/L (98-108); Estimated Glomerular Filt Rate 34; Glucose 152 mg/dL (70-99); Osmolality Calculated 295 mOsm/kg (285-295); Potassium 4.4 mmol/L (3.5-5.1); Sodium 139 mmol/L (136-145)
[2020-06-03 11:41] LABS: Erythrocyte Sedimentation Rate 43 mm/hr (0-20)
== END 2020-06-03 10:30 | disposition home or self-care (01) ==
LOC: CHSLAB 10:31
PROVIDERS: PCP Internal Medicine; Visit Provider Internal Medicine
DX: E79.0 Hyperuricemia without signs of inflammatory arthritis and tophaceous disease (principal)
CPT/HCPCS: 36415; 80048; 84550; 85652

== ENCOUNTER 2020-07-20 14:03 | Outpatient (CLI) | payer MEDICARE, SELFPAY ==
--- NOTE | ~2020-07-20 | XR_ITS ---
EXAMINATION: XR knee RT 3V DATE: 07/20/2020 14:37 INDICATION: Anterior knee pain. TECHNIQUE: 3 views of right knee were obtained. COMPARISON: Right knee radiographs 03/01/2018 FINDINGS: Bone alignment is normal. No fracture. There is mild tricompartmental osteoarthritis. No kn ee joint effusion. IMPRESSION: 1. Mild right knee osteoarthritis. Note that this exam is nonweightbearing, which likely underestimat es cartilage loss. The prior radiographs demonstrated severe lateral compartment osteoarthritis. Reviewed, dictated and finalized at location B. IMPRESSION: 1. Mild right knee osteoarthritis. Note that this exam is nonweightbearing, whi ch likely underestimates cartilage loss. The prior radiographs demonstrated sev ere lateral compartment osteoarthritis.
== END 2020-07-20 14:04 | disposition home or self-care (01) ==
LOC: CHSIMG 14:05
PROVIDERS: PCP Internal Medicine; Visit Provider Internal Medicine
DX: M25.561 Pain in right knee (principal)
CPT/HCPCS: 73562

== ENCOUNTER 2020-07-21 14:20 | Outpatient (CLI) | payer MEDICARE, SELFPAY ==
--- NOTE | ~2020-07-21 | MM_ITS ---
EXAMINATION: MM screening [facility] BI w freya HISTORY: Screening mammogram, family history of breast cancer in her mother and sister. TECHNIQUE: Craniocaudal and mediolateral oblique 3-D tomosynthesis images were obtained and synthetic 2-D images were generated. CAD analysis was submitted and interpreted. COMPARISON: 01/25/2019, 01/16/2018, 01/05/2017 BREAST PARENCHYMAL COMPOSITION: The breasts are almost entirely fatty. FINDINGS: Scattered benign-appearing calcifications are present. There is no evidence of suspicious m ass, calcification, or architectural distortion to suggest malignancy in either breast. There has bee n no suspicious interval change. IMPRESSION: 1. No mammographic evidence of malignancy. 2. Recommend routine screening mammography in one year. BI-RADS Category 2: Benign finding(s). Reviewed, dictated and finalized at location A.
--- NOTE | ~2020-07-21 | XR_ITS ---
XR knee RT min 4V DATE: 07/21/2020 15:14 INDICATION: Right knee pain TECHNIQUE: Weightbearing AP and PA views. Lateral and sunrise views. COMPARISON: 07/20/2020 right knee FINDINGS: There is virtual obliteration of lateral compartment joint space with weightbearing. There is valgus deformity. Diffuse osteopenia. There is mild periarticular spurring of the patellofemoral compartment. There is mild chondrocalcinos is. IMPRESSION: Diffuse osteopenia Valgus deformity Virtual obliteration of lateral compartment joint space due to severe osteoarthritis Osteoarthritis at the patellofemoral compartment is noted as well Mild chondrocalcinosis Reviewed, dictated and finalized at location A. IMPRESSION: Diffuse osteopenia Valgus deformity Virtual obliteration of lateral compartment joint space due to severe osteoarth ritis Osteoarthritis at the patellofemoral compartment is noted as well Mild chondrocalcinosis
== END 2020-07-21 14:21 | disposition home or self-care (01) ==
LOC: CHSIMG 14:23
PROVIDERS: PCP Internal Medicine; Visit Provider Internal Medicine
DX: M25.561 Pain in right knee (principal); Z12.31 Encounter for screening mammogram for malignant neoplasm of breast
CPT/HCPCS: 73564; 77063; 77067

== ENCOUNTER 2020-08-07 11:19 | Outpatient (CLI) | payer MEDICARE, SELFPAY ==
[2020-08-07 11:30] LABS: Basophils Absolute Auto 0.07 K/mm3 (0.00-0.10); Basophils Percent Auto 0.7 % (0.0-1.0); Eosinophils Absolute Auto 0.35 K/mm3 (0.02-0.50); Eosinophils Percent Auto 3.3 % (1.0-6.0); Hematocrit 37.4 % (35.0-42.0); Immature Granulocyte Absolute 0.04 K/mm3 (0.00-0.00); Immature Granulocyte Percent A 0.4 % (0.0-0.0); Lymphocytes Absolute Auto 1.98 K/mm3 (1.10-4.50); Lymphocytes Percent Auto 18.9 % (18.0-42.0); Mean Corpuscular HGB Conc 32.1 g/dL (32.0-36.0); Mean Corpuscular Hemoglobin 28.4 pg (27.0-31.0); Mean Corpuscular Volume 88.4 fL (78.0-102.0); Mean Platelet Volume 11.5 fl (9.2-11.8); Monocytes Absolute Auto 0.87 K/mm3 (0.10-0.90); Monocytes Percent Auto 8.3 % (2.0-11.0); Neutrophils Absolute Auto 7.2 K/mm3 (1.7-7.2); Neutrophils Percent Auto 68.4 % (50.0-70.0); Platelet Count Result 263 K/mm3 (150-420); Red Blood Count 4.23 M/mm3 (4.20-5.40); Red Cell Distribution Width 16.3 % (11.6-14.4); White Blood Count 10.5 K/mm3 (4.8-10.8)
[2020-08-07 11:46] LABS: Hemoglobin A1C 7.2 % (<5.7)
[2020-08-07 12:53] LABS: Alanine Aminotransferase 32 U/L (14-59); Albumin Level 3.4 g/dL (3.4-5.0); Alkaline Phosphatase 141 U/L (46-116); Anion Gap 9 mmol/L (8-16); Aspartate Amino Transferase 22 U/L (15-37); Bilirubin,Total 0.3 mg/dL (0.00-1.00); Blood Urea Nitrogen 27 mg/dL (7-18); Calcium 9.7 mg/dL (8.5-10.1); Carbon Dioxide 27 mmol/L (21-32); Chloride 104 mmol/L (98-108); Estimated Glomerular Filt Rate 36; Glucose 126 mg/dL (70-99); NT Pro B Type Natriuretic Pept 223 pg/mL (0-125); Osmolality Calculated 297 mOsm/kg (285-295); Potassium 5.1 mmol/L (3.5-5.1); Sodium 140 mmol/L (136-145); Total Protein 7.5 g/dL (6.4-8.2); Uric Acid 5.7 mg/dL (2.6-6.0)
[2020-08-07 14:07] LABS: Add Urine Microscopic? YES; Appearance Urine Cloudy (Clear); Bilirubin Urine Negative (Negative); Blood Urine 2+ (Negative); Color Urine Yellow (Yellow); Glucose Urine UA Negative (Negative); Ketones Urine Negative (Negative); Leukocyte Esterase Ur 2+ (Negative); Nitrate Urine Negative (Negative); Protein Urine 1+ (Negative); Specific Grav Ur 1.025 (1.010-1.020); Urobilinogen Urine 0.2 mg/dL (0.2-1.0)
[2020-08-07 14:29] LABS: Bacteria Urine 4+ /hpf; Squamous Epithelial Cell Urine Few /hpf (Few); WBC Urine >75 /hpf (0-3)
== END 2020-08-07 11:20 | disposition home or self-care (01) ==
LOC: CHSLAB 11:21
PROVIDERS: PCP Internal Medicine; Visit Provider Internal Medicine
DX: E78.2 Mixed hyperlipidemia (principal); I12.9 Hypertensive chronic kidney disease with stage 1 through stage 4 chronic kidney disease, or unspecified chronic kidney disease; N18.30 Chronic kidney disease, stage 3 unspecified; E79.0 Hyperuricemia without signs of inflammatory arthritis and tophaceous disease; I50.89 Other heart failure
CPT/HCPCS: 36415; 80053; 81001; 83036; 83880; 84550; 85025; 87086; 87088

== ENCOUNTER 2020-08-20 10:45 | Outpatient (RCR) | payer MEDICARE, SELFPAY ==
[2020-05-26 09:37] VITALS: BMI 44.2
[2020-05-26 09:40] VITALS: BMI 44.2
== END 2020-08-24 14:39 | disposition home or self-care (01) ==
LOC: ANHDMC 10:45
PROVIDERS: PCP Internal Medicine; Visit Provider Internal Medicine
DX: E11.21 Type 2 diabetes mellitus with diabetic nephropathy (principal); E11.65 Type 2 diabetes mellitus with hyperglycemia; Z71.3 Dietary counseling and surveillance; Z71.89 Other specified counseling
CPT/HCPCS: 97802; G0108

== ENCOUNTER 2020-09-03 10:45 | Outpatient (RCR) | payer MEDICARE, SELFPAY | END 2020-09-03 16:35 | disposition home or self-care (01) | LOC: ANHDMC 10:45 | PROVIDERS: PCP Internal Medicine; Visit Provider Internal Medicine | DX: E11.21 Type 2 diabetes mellitus with diabetic nephropathy (principal); E11.65 Type 2 diabetes mellitus with hyperglycemia; Z71.89 Other specified counseling | CPT/HCPCS: G0108 ==

== ENCOUNTER 2020-09-08 12:19 | Outpatient (CLI) | payer MEDICARE, SELFPAY ==
--- NOTE | ~2020-09-08 | CT_ITS ---
EXAMINATION: CT abdomen pelvis w con DATE: 09/08/2020 13:49 INDICATION: Blood in stool. TECHNIQUE: Computed tomography (CT) of the abdomen and pelvis was performed with 100 mL Omnipaque 350 intravenous contrast. Automated exposure control and iterative reconstruction technique were employe d. The dose-length product was 1454.53 mGy-cm. COMPARISON: CT abdomen and pelvis 01/02/2013 FINDINGS: The visualized portions of the lung bases demonstrate mild atelectasis. A calcified right l joyce nodule is consistent with old granulomatous disease. No pleural effusion. There is a moderate-siz ed sliding hiatal hernia. Cardiomegaly is noted. No pericardial effusion. The liver is normal. There are changes of cholecystectomy. Calcifications in the spleen are consistent with old granulomatous di sease. The pancreas and right adrenal gland are normal. There is a 13 mm mass in left adrenal gland w ithout change, likely an adenoma. There is cortical thinning of the kidneys. There are cysts in the k idneys measuring up to 19 mm in the right. There is a pessary in the vagina. There is diverticulosis of the colon without evidence of diverticulitis. There are changes of right hemicolectomy. There are no pathologically enlarged lymph nodes. There is no free intraperitoneal fluid. There are ventral her nias containing nondilated small bowel and a wall of nonobstructed colon. There is severe thoracic an d lumbar spondylosis. IMPRESSION: 1. Moderate-sized sliding hiatal hernia. 2. Ventral hernias containing nonobstructed small bowel and a wall of nonobstructed colon. Reviewed, dictated and finalized at location A. IMPRESSION: 1. Moderate-sized sliding hiatal hernia. 2. Ventral hernias containing nonobstructed small bowel and a wall of nonobstru cted colon.
== END 2020-09-08 12:20 | disposition home or self-care (01) ==
LOC: CHSIMG 12:23
PROVIDERS: PCP Internal Medicine; Visit Provider Nurse Practitioner Family
DX: K57.90 Diverticulosis of intestine, part unspecified, without perforation or abscess without bleeding (principal); K62.5 Hemorrhage of anus and rectum
CPT/HCPCS: 74177; Q9967

== ENCOUNTER 2020-11-14 10:43 | Outpatient (CLI) | payer MEDICARE, SELFPAY ==
[2020-11-14 11:02] LABS: Basophils Absolute Auto 0.06 K/mm3 (0.00-0.10); Basophils Percent Auto 0.6 % (0.0-1.0); Eosinophils Absolute Auto 0.25 K/mm3 (0.02-0.50); Eosinophils Percent Auto 2.5 % (1.0-6.0); Hematocrit 36.8 % (35.0-42.0); Hemoglobin 12.2 g/dL (11.7-13.8); Immature Granulocyte Absolute 0.05 K/mm3 (0.00-0.00); Immature Granulocyte Percent A 0.5 % (0.0-0.0); Lymphocytes Absolute Auto 1.77 K/mm3 (1.10-4.50); Lymphocytes Percent Auto 17.5 % (18.0-42.0); Mean Corpuscular HGB Conc 33.2 g/dL (32.0-36.0); Mean Corpuscular Hemoglobin 29.8 pg (27.0-31.0); Mean Platelet Volume 11.3 fl (9.2-11.8); Monocytes Percent Auto 7.9 % (2.0-11.0); Neutrophils Absolute Auto 7.2 K/mm3 (1.7-7.2); Platelet Count Result 274 K/mm3 (150-420); Red Blood Count 4.09 M/mm3 (4.20-5.40); Red Cell Distribution Width 15.3 % (11.6-14.4); White Blood Count 10.1 K/mm3 (4.8-10.8)
[2020-11-14 11:59] LABS: Hemoglobin A1C 7.3 % (<5.7)
[2020-11-14 12:15] LABS: Alanine Aminotransferase 33 U/L (14-59); Albumin Level 3.3 g/dL (3.4-5.0); Alkaline Phosphatase 127 U/L (46-116); Anion Gap 9 mmol/L (8-16); Aspartate Amino Transferase 21 U/L (15-37); Bilirubin,Total 0.4 mg/dL (0.00-1.00); Blood Urea Nitrogen 25 mg/dL (7-18); Calcium 9.4 mg/dL (8.5-10.1); Carbon Dioxide 29 mmol/L (21-32); Chloride 104 mmol/L (98-108); Cholesterol 229 mg/dL (0-200); Creatine Kinase 46 U/L (26-192); Estimated Glomerular Filt Rate 40; Ferritin 30 ng/mL (8-252); Glucose 135 mg/dL (70-99); HDL Direct 75 mg/dL (40-60); Iron 68 ug/dL (50-170); LDL Cholesterol Calculated 130 mg/dL (<130); NT Pro B Type Natriuretic Pept 449 pg/mL (0-125); Osmolality Calculated 300 mOsm/kg (285-295); Potassium 4.7 mmol/L (3.5-5.1); Sodium 142 mmol/L (136-145); Total Protein 7.4 g/dL (6.4-8.2); Triglycerides 118 mg/dL (0-150); Uric Acid 5.8 mg/dL (2.6-6.0)
[2020-11-14 14:22] LABS: Appearance Urine Cloudy (Clear); Color Urine Light Yellow (Yellow); Protein Urine Negative (Negative); pH Urine 7.5 (5.0-8.0)
[2020-11-14 14:23] LABS: Blood Urine Negative (Negative); Glucose Urine UA Negative (Negative); Ketones Urine Negative (Negative)
[2020-11-14 14:24] LABS: Add Urine Microscopic? YES; Bilirubin Urine Negative (Negative); Leukocyte Esterase Ur 3+ LEU/UL (Negative); Nitrate Urine Negative (Negative); Urobilinogen Urine 0.2 mg/dL (0.2-1.0)
[2020-11-14 14:25] LABS: Bacteria Urine 2+ /hpf; RBC Urine None seen /hpf (0-2); Squamous Epithelial Cell Urine Few /hpf (Few); WBC Urine >75 /hpf (0-3)
[2020-11-14 14:27] LABS: Creatinine Urine 123.23 mg/dL (40-278)
[2020-11-14 14:37] LABS: MALB Creatinine Ratio 323.7 mg/g (0-30)
[2020-11-18 21:52] LABS: Vitamin D 25 Hydroxy 25 ng/mL (30-100)
== END 2020-11-14 10:44 | disposition home or self-care (01) ==
LOC: CHSLAB 10:46
PROVIDERS: PCP Internal Medicine; Visit Provider Internal Medicine
DX: E79.0 Hyperuricemia without signs of inflammatory arthritis and tophaceous disease (principal); I11.0 Hypertensive heart disease with heart failure; I50.9 Heart failure, unspecified; E11.65 Type 2 diabetes mellitus with hyperglycemia; N39.0 Urinary tract infection, site not specified; M81.0 Age-related osteoporosis without current pathological fracture; D50.9 Iron deficiency anemia, unspecified
CPT/HCPCS: 36415; 80053; 80061; 81001; 82043; 82306; 82550; 82728; 83036; 83540; 83880; 84550; 85025; 87077; 87086; 87088; 87186

== ENCOUNTER 2020-12-01 10:40 | Outpatient (RCR) | payer MEDICARE, SELFPAY | END 2020-12-01 12:35 | disposition home or self-care (01) | LOC: ANHDMC 10:40 | PROVIDERS: PCP Internal Medicine; Visit Provider Internal Medicine | DX: E11.21 Type 2 diabetes mellitus with diabetic nephropathy (principal); E11.65 Type 2 diabetes mellitus with hyperglycemia; Z71.89 Other specified counseling | CPT/HCPCS: G0108 ==

== ENCOUNTER 2021-02-24 11:10 | Outpatient (CLI) | payer MEDICARE, SELFPAY ==
[2021-02-24 11:23] LABS: Basophils Absolute Auto 0.07 K/mm3 (0.00-0.10); Basophils Percent Auto 0.6 % (0.0-1.0); Eosinophils Absolute Auto 0.28 K/mm3 (0.02-0.50); Eosinophils Percent Auto 2.5 % (1.0-6.0); Hematocrit 37.9 % (35.0-42.0); Hemoglobin 12.2 g/dL (11.7-13.8); Immature Granulocyte Absolute 0.05 K/mm3 (0.00-0.00); Immature Granulocyte Percent A 0.4 % (0.0-0.0); Lymphocytes Absolute Auto 1.79 K/mm3 (1.10-4.50); Lymphocytes Percent Auto 15.8 % (18.0-42.0); Mean Corpuscular HGB Conc 32.2 g/dL (32.0-36.0); Mean Corpuscular Hemoglobin 30.9 pg (27.0-31.0); Mean Corpuscular Volume 95.9 fL (78.0-102.0); Mean Platelet Volume 11.4 fl (9.2-11.8); Monocytes Absolute Auto 0.96 K/mm3 (0.10-0.90); Monocytes Percent Auto 8.5 % (2.0-11.0); Neutrophils Absolute Auto 8.2 K/mm3 (1.7-7.2); Neutrophils Percent Auto 72.2 % (50.0-70.0); Platelet Count Result 273 K/mm3 (150-420); Red Blood Count 3.95 M/mm3 (4.20-5.40); Red Cell Distribution Width 14.3 % (11.6-14.4); White Blood Count 11.3 K/mm3 (4.8-10.8)
[2021-02-24 11:25] LABS: Add Urine Microscopic? YES; Appearance Urine Sl Cloudy (Clear); Bilirubin Urine Negative (Negative); Blood Urine 2+ (Negative); Color Urine Yellow (Yellow); Glucose Urine UA Negative (Negative); Ketones Urine Negative (Negative); Leukocyte Esterase Ur 3+ (Negative); Nitrate Urine Negative (Negative); Protein Urine Trace (Negative); Specific Grav Ur 1.015 (1.010-1.020); Urobilinogen Urine 0.2 mg/dL (0.2-1.0)
[2021-02-24 11:30] LABS: Bacteria Urine Trace /hpf; Squamous Epithelial Cell Urine Few /hpf (Few); WBC Urine >75 /hpf (0-3)
[2021-02-24 11:38] LABS: Hemoglobin A1C 7.5 % (<5.7)
[2021-02-24 11:42] LABS: Creatinine Urine 60.89 mg/dL (40-278); MALB Creatinine Ratio 179.5 mg/g (0-30); Microalbumin Urine Random 109.3 mg/L
[2021-02-24 12:08] LABS: Alanine Aminotransferase 25 U/L (14-59); Albumin Level 3.2 g/dL (3.4-5.0); Alkaline Phosphatase 149 U/L (46-116); Anion Gap 10 mmol/L (8-16); Aspartate Amino Transferase 15 U/L (15-37); Bilirubin,Total 0.3 mg/dL (0.00-1.00); Blood Urea Nitrogen 37 mg/dL (7-18); Calcium 9.3 mg/dL (8.5-10.1); Carbon Dioxide 26 mmol/L (21-32); Chloride 104 mmol/L (98-108); Cholesterol 193 mg/dL (0-200); Creatine Kinase 36 U/L (26-192); Estimated Glomerular Filt Rate 30; Ferritin 28 ng/mL (8-252); Free T3 2.26 pg/mL (2.18-3.98); Free T4 Free Thyroxine 0.76 ng/dL (0.76-1.46); Glucose 158 mg/dL (70-99); HDL Direct 78 mg/dL (40-60); Iron 48 ug/dL (50-170); LDL Cholesterol Calculated 91 mg/dL (<130); Osmolality Calculated 301 mOsm/kg (285-295); Percent Iron Saturation 15 % (12-57); Sodium 140 mmol/L (136-145); Thyroid Stimulating Hormone 1.98 uIU/mL (0.36-3.74); Total Protein 7.4 g/dL (6.4-8.2); Triglycerides 120 mg/dL (0-150); Uric Acid 6.6 mg/dL (2.6-6.0)
[2021-02-27 23:51] LABS: Vitamin D 25 Hydroxy 28 ng/mL (30-100)
== END 2021-02-24 11:11 | disposition home or self-care (01) ==
LOC: CHSLAB 11:11
PROVIDERS: PCP Internal Medicine; Visit Provider Internal Medicine
DX: E79.0 Hyperuricemia without signs of inflammatory arthritis and tophaceous disease (principal); E78.2 Mixed hyperlipidemia; I10 Essential (primary) hypertension; D50.9 Iron deficiency anemia, unspecified; E06.4 Drug-induced thyroiditis; M81.0 Age-related osteoporosis without current pathological fracture
CPT/HCPCS: 36415; 80053; 80061; 81001; 82043; 82306; 82550; 82728; 83036; 83540; 83550; 84439; 84443; 84481; 84550; 85025

== ENCOUNTER 2021-04-27 08:09 | Outpatient (CLI) | payer MEDICARE, SELFPAY ==
--- NOTE | ~2021-04-27 | XR_ITS ---
EXAMINATION: XR knee RT min 4V DATE: 04/27/2021 08:46 INDICATION: Right knee pain. TECHNIQUE: 4 views of right knee including weightbearing views were obtained. COMPARISON: Right knee radiographs 07/21/2020 FINDINGS: There is valgus angulation at the knee. No fracture. There is severe osteoarthritis of late ral compartment and mild osteoarthritis of medial and patellofemoral compartments. There is chondroca lcinosis of the menisci. No knee joint effusion. IMPRESSION: 1. Severe right knee osteoarthritis. Reviewed, dictated and finalized at location A. RT FREIGHT MANAGER
== END 2021-04-27 08:10 | disposition home or self-care (01) ==
LOC: CHSIMG 08:11
PROVIDERS: PCP Internal Medicine; Visit Provider Orthopaedic Surgery
DX: M25.561 Pain in right knee (principal)
CPT/HCPCS: 73564

== ENCOUNTER 2021-05-31 10:22 | Outpatient (CLI) | payer MEDICARE, SELFPAY ==
[2021-05-31 10:39] LABS: Basophils Absolute Auto 0.05 K/mm3 (0.00-0.10); Basophils Percent Auto 0.4 % (0.0-1.0); Eosinophils Absolute Auto 0.37 K/mm3 (0.02-0.50); Eosinophils Percent Auto 3.2 % (1.0-6.0); Hematocrit 34.7 % (35.0-42.0); Hemoglobin 11.3 g/dL (11.7-13.8); Immature Granulocyte Absolute 0.06 K/mm3 (0.00-0.00); Immature Granulocyte Percent A 0.5 % (0.0-0.0); Lymphocytes Absolute Auto 2.07 K/mm3 (1.10-4.50); Mean Corpuscular HGB Conc 32.6 g/dL (32.0-36.0); Mean Corpuscular Hemoglobin 30.9 pg (27.0-31.0); Mean Corpuscular Volume 94.8 fL (78.0-102.0); Mean Platelet Volume 11.4 fl (9.2-11.8); Monocytes Absolute Auto 1.11 K/mm3 (0.10-0.90); Monocytes Percent Auto 9.7 % (2.0-11.0); Neutrophils Absolute Auto 7.8 K/mm3 (1.7-7.2); Neutrophils Percent Auto 68.2 % (50.0-70.0); Platelet Count Result 247 K/mm3 (150-420); Red Blood Count 3.66 M/mm3 (4.20-5.40); Red Cell Distribution Width 13.4 % (11.6-14.4); White Blood Count 11.5 K/mm3 (4.8-10.8)
[2021-05-31 11:00] LABS: Hemoglobin A1C 7.6 % (<5.7)
[2021-05-31 11:42] LABS: Alanine Aminotransferase 25 U/L (14-59); Albumin Level 3.1 g/dL (3.4-5.0); Alkaline Phosphatase 146 U/L (46-116); Anion Gap 10 mmol/L (8-16); Aspartate Amino Transferase 22 U/L (15-37); Bilirubin,Total 0.3 mg/dL (0.00-1.00); Blood Urea Nitrogen 26 mg/dL (7-18); Calcium 9.1 mg/dL (8.5-10.1); Carbon Dioxide 25 mmol/L (21-32); Chloride 104 mmol/L (98-108); Cholesterol 157 mg/dL (0-200); Creatine Kinase 42 U/L (26-192); Estimated Glomerular Filt Rate 37; Glucose 145 mg/dL (70-99); HDL Direct 71 mg/dL (40-60); LDL Cholesterol Calculated 66 mg/dL (<130); Osmolality Calculated 295 mOsm/kg (285-295); Potassium 4.4 mmol/L (3.5-5.1); Sodium 139 mmol/L (136-145); Total Protein 6.8 g/dL (6.4-8.2); Triglycerides 99 mg/dL (0-150)
[2021-05-31 14:49] LABS: Appearance Urine Sl Cloudy (Clear); Bilirubin Urine Negative (Negative); Blood Urine 2+ (Negative); Glucose Urine UA Negative (Negative); Ketones Urine Negative (Negative); Leukocyte Esterase Ur 2+ LEU/UL (Negative); Nitrate Urine Negative (Negative); Protein Urine 2+ (Negative); Specific Grav Ur >= 1.030 (1.010-1.020); Urobilinogen Urine 0.2 mg/dL (0.2-1.0); pH Urine 5.5 (5.0-8.0)
[2021-05-31 15:06] LABS: Add Urine Microscopic? YES; Bacteria Urine 2+ /hpf; Color Urine Dark Yellow (Yellow); Squamous Epithelial Cell Urine Unable to determine /hpf (Few); WBC Urine >75 /hpf (0-3)
== END 2021-05-31 10:23 | disposition home or self-care (01) ==
LOC: CHSLAB 10:25
PROVIDERS: PCP Internal Medicine; Visit Provider Internal Medicine
DX: E11.21 Type 2 diabetes mellitus with diabetic nephropathy (principal); I10 Essential (primary) hypertension; E78.2 Mixed hyperlipidemia; N39.0 Urinary tract infection, site not specified
CPT/HCPCS: 36415; 80053; 80061; 81001; 82550; 83036; 85025; 87077; 87086; 87088; 87186

== ENCOUNTER 2021-07-16 13:15 | Outpatient (CLI) | payer MEDICARE, SELFPAY ==
--- NOTE | ~2021-07-16 | US_ITS ---
EXAMINATION: US arterial ankle brachial ind DATE: 07/16/2021 14:12 INDICATION: Peripheral arterial disease. TECHNIQUE: Segmental pressures and plethysmographic and Doppler waveforms of the brachial and lower e xtremity arteries were obtained. COMPARISON: None. FINDINGS: Right and left brachial artery pressures of 140 mm Hg and 142 mm Hg, respectively, are concordant (no rmal difference <= 30 mmHg). The right ankle-brachial index (JB) is 1.23 (normal >= 0.9-1.0). The right great toe-brachial index (TBI) is 0.73 (normal >= 0.65). Arterial Doppler waveforms are at least biphasic at the ankle. The left JB is 1.16. The left TBI is 0.73. Arterial Doppler waveforms are triphasic at the ankle. IMPRESSION: 1. No significant arterial occlusive disease. Reviewed, dictated and finalized at location A.
--- NOTE | ~2021-07-16 | US_ITS ---
EXAMINATION: US venous doppler [facility] DATE: 07/16/2021 14:12 INDICATION: Lower limb edema and swelling. TECHNIQUE: Grayscale ultrasound images without and with compression and Doppler ultrasound images of the bilateral lower extremity veins were obtained. COMPARISON: Ultrasound 11/08/2019 FINDINGS: The visualized portions of right common femoral vein, profunda (deep) femoral vein, femoral vein, pop liteal vein, peroneal veins, posterior tibial veins, and greater saphenous vein outflow are patent. The visualized portions of left common femoral vein, profunda femoral vein, femoral vein, popliteal v ein, peroneal veins, posterior tibial veins, and greater saphenous vein outflow are patent. IMPRESSION: 1. No deep venous thrombosis. Reviewed, dictated and finalized at location A.
== END 2021-07-16 13:16 | disposition home or self-care (01) ==
LOC: CHSIMG 13:16
PROVIDERS: PCP Internal Medicine; Visit Provider Internal Medicine
DX: R60.0 Localized edema (principal); I73.9 Peripheral vascular disease, unspecified
CPT/HCPCS: 93922; 93970

== ENCOUNTER 2021-08-31 10:14 | Outpatient (CLI) | payer MEDICARE, SELFPAY ==
--- NOTE | 2021-08-31 | ECHO_ITS ---
Patient Info Name: Halina Colin Age: 71 years : 1950 Gender: Female Ht: 63 in Wt: 260 lbs BSA: 2.36 m2 HR: 85 bpm BP: 161 / 114 mmHg Technical Quality: Fair Exam Date: 08/31/2021 10:32 AM Exam Location: [facility] Patient Status: Outpatient Admit Date: 08/31/2021 Staff Ordering Physician: Jose Tovar MD Substation Mechanic: Glenys Cuellar RDCS Attending Provider: Jose Tovar MD Referring Physician: Guy THOMPSON; Exam Type: CA echo doppler color flow Study Info Indications R60.9 - Edema, unspecified I10 - Essential (primary) hypertension Complete two-dimensional, color flow and Doppler transthoracic echocardiogram is performed. History/Risk Factors Hypertension: Yes Dyslipidemia: No Congenital Heart Disease (CHD): No Diabetic Therapy: Oral Peripheral Arterial Disease (PAD): No Myocardial Infarction ([place]): No Chronic Lung Disease: No Obesity: Yes Coronary Artery Disease (CAD) No Congestive Heart Failure (CHF): Hx CHF Cardiomyopathy/LV Systolic Dysfunction: No Diabetes Mellitus: Type II COPD: No Tobacco Use: Former Cerebrovascular Disease: No Family History: Diabetes Mellitus Deep Vein Thrombosis (DVT): None Frailty Scale (CSHA): 5: Mildly Frail Cardiac Arrest: No Summary 1. Complete two-dimensional, color flow and Doppler transthoracic echocardiogram is performed. 2. Left ventricular chamber dimension is normal. 3. Left ventricular systolic function is normal, estimated at 60-65%. 4. The left ventricular diastolic function is abnormal. 5. E/e' 10 is mildly elevated. 6. Atrial fibrillation. 7. Left atrial chamber dimension is moderately enlarged. 8. Right atrial chamber dimension is moderately enlarged. 9. There is mild aortic valve sclerosis. 10. There is moderate tricuspid valve regurgitation. 11. Mild pulmonary hypertension, estimated pulmonary arterial systolic pressure is 42 mmHg. Recommendations * Continue medical therapy for diabetes. Left Ventricle Atrial fibrillation. E/e' 10 is mildly elevated. Left ventricular chamber dimension is normal. Left ventricular systolic function is normal, estimated at 60-65%. The left ventricular diastolic function is abnormal. Right Ventricle Right ventricular chamber dimension is normal. Right ventricular systolic function is normal. Left Atria Left atrial chamber dimension is moderately enlarged. Right Atria Right atrial chamber dimension is moderately enlarged. Aortic Valve The aortic valve is trileaflet. There is mild aortic valve sclerosis. There is no aortic valve stenosis. There is no aortic valve regurgitation. Pulmonic Valve There is no pulmonic regurgitation. Mitral Valve There is no mitral valve stenosis. There is no mitral valve regurgitation. Tricuspid Valve There is moderate tricuspid valve regurgitation. Mild pulmonary hypertension, estimated pulmonary arterial systolic pressure is 42 mmHg. Pericardium/Pleural There is no pericardial effusion. Inferior Vena Cava Normal inferior vena cava with >50% collapse upon inspiration consistent with normal right atrial pressure, 5 mmHg. Aorta The aortic root size at the sinus of Valsalva is normal. Left Ventricular Outflow Tract Name Value Normal
== END 2021-08-31 10:15 | disposition home or self-care (01) ==
LOC: ANHCARD 10:16
PROVIDERS: PCP Internal Medicine; Visit Provider Internal Medicine
DX: R60.0 Localized edema (principal); I11.0 Hypertensive heart disease with heart failure
CPT/HCPCS: 93306

== ENCOUNTER 2021-09-17 10:14 | Outpatient (CLI) | payer MEDICARE, SELFPAY ==
--- NOTE | 2021-09-17 10:30 | ECG_ITS ---
Measurements Intervals [place] Rate: 80 P: [place]: 0 QRS: 37 QRSD: 88 T: 57 QT: 350 QTc: 405 Interpretive Statements ATRIAL FIBRILLATION RSR' IN V1 OR V2, CONSIDER RIGHT VENTRICULAR HYPERTROPHY OR RIGHT VCD ABNORMAL ECG Electronically Signed On 09-17-2021 15:40:19 CDT by Dago Randle D.O.
[2021-09-17 10:36] LABS: Basophils Absolute Auto 0.03 K/mm3 (0.00-0.10); Basophils Percent Auto 0.3 % (0.0-1.0); Eosinophils Absolute Auto 0.03 K/mm3 (0.02-0.50); Eosinophils Percent Auto 0.3 % (1.0-6.0); Hematocrit 33.1 % (35.0-42.0); Hemoglobin 10.4 g/dL (11.7-13.8); Immature Granulocyte Absolute 0.04 K/mm3 (0.00-0.00); Immature Granulocyte Percent A 0.4 % (0.0-0.0); Lymphocytes Absolute Auto 1.36 K/mm3 (1.10-4.50); Lymphocytes Percent Auto 12.4 % (18.0-42.0); Mean Corpuscular HGB Conc 31.4 g/dL (32.0-36.0); Mean Corpuscular Hemoglobin 26.9 pg (27.0-31.0); Mean Corpuscular Volume 85.8 fL (78.0-102.0); Mean Platelet Volume 11.6 fl (9.2-11.8); Monocytes Percent Auto 8.2 % (2.0-11.0); Neutrophils Absolute Auto 8.6 K/mm3 (1.7-7.2); Neutrophils Percent Auto 78.4 % (50.0-70.0); Platelet Count Result 299 K/mm3 (150-420); Red Blood Count 3.86 M/mm3 (4.20-5.40); Red Cell Distribution Width 15.6 % (11.6-14.4)
[2021-09-17 11:09] LABS: Alanine Aminotransferase 34 U/L (14-59); Albumin Level 2.9 g/dL (3.4-5.0); Alkaline Phosphatase 162 U/L (46-116); Amylase 63 U/L (25-115); Anion Gap 9 mmol/L (8-16); Aspartate Amino Transferase 32 U/L (15-37); Bilirubin,Total 0.3 mg/dL (0.00-1.00); Blood Urea Nitrogen 31 mg/dL (7-18); Calcium 9.3 mg/dL (8.5-10.1); Carbon Dioxide 25 mmol/L (21-32); Chloride 104 mmol/L (98-108); Estimated Glomerular Filt Rate 32; Free T3 1.59 pg/mL (2.18-3.98); Free T4 Free Thyroxine 0.85 ng/dL (0.76-1.46); Glucose 169 mg/dL (70-99); Lipase 57 U/L (73-393); Magnesium 1.8 mg/dL (1.8-2.4); NT Pro B Type Natriuretic Pept 1503 pg/mL (0-125); Osmolality Calculated 296 mOsm/kg (285-295); Potassium 4.2 mmol/L (3.5-5.1); Sodium 138 mmol/L (136-145); Thyroid Stimulating Hormone 1.11 uIU/mL (0.36-3.74); Total Protein 7.7 g/dL (6.4-8.2)
[2021-09-17 12:18] LABS: Hemoglobin A1C 7.9 % (<5.7)
== END 2021-09-17 10:15 | disposition home or self-care (01) ==
LOC: CHSLAB 10:17
PROVIDERS: PCP Internal Medicine; Visit Provider Internal Medicine
DX: I48.91 Unspecified atrial fibrillation (principal); R06.00 Dyspnea, unspecified; R11.0 Nausea; R19.7 Diarrhea, unspecified; E11.65 Type 2 diabetes mellitus with hyperglycemia; N39.0 Urinary tract infection, site not specified
CPT/HCPCS: 36415; 80053; 82150; 83036; 83690; 83735; 83880; 84439; 84443; 84481; 85025; 87086; 93005

== ENCOUNTER 2021-09-24 11:32 | Outpatient (CLI) | payer MEDICARE, SELFPAY ==
[2021-09-24 11:53] LABS: Basophils Absolute Auto 0.05 K/mm3 (0.00-0.10); Basophils Percent Auto 0.6 % (0.0-1.0); Eosinophils Absolute Auto 0.22 K/mm3 (0.02-0.50); Eosinophils Percent Auto 2.7 % (1.0-6.0); Hematocrit 33.2 % (35.0-42.0); Hemoglobin 10.2 g/dL (11.7-13.8); Immature Granulocyte Absolute 0.03 K/mm3 (0.00-0.00); Immature Granulocyte Percent A 0.4 % (0.0-0.0); Lymphocytes Absolute Auto 1.79 K/mm3 (1.10-4.50); Lymphocytes Percent Auto 22.2 % (18.0-42.0); Mean Corpuscular HGB Conc 30.7 g/dL (32.0-36.0); Mean Corpuscular Hemoglobin 26.4 pg (27.0-31.0); Mean Corpuscular Volume 85.8 fL (78.0-102.0); Mean Platelet Volume 11.1 fl (9.2-11.8); Monocytes Absolute Auto 0.84 K/mm3 (0.10-0.90); Monocytes Percent Auto 10.4 % (2.0-11.0); Neutrophils Absolute Auto 5.1 K/mm3 (1.7-7.2); Neutrophils Percent Auto 63.7 % (50.0-70.0); Platelet Count Result 267 K/mm3 (150-420); Red Blood Count 3.87 M/mm3 (4.20-5.40); Red Cell Distribution Width 15.9 % (11.6-14.4); White Blood Count 8.1 K/mm3 (4.8-10.8)
[2021-09-24 12:00] LABS: Add Urine Microscopic? YES; Appearance Urine Clear (Clear); Bilirubin Urine Negative (Negative); Blood Urine 1+ (Negative); Color Urine Red (Yellow); Glucose Urine UA Negative (Negative); Ketones Urine Negative (Negative); Leukocyte Esterase Ur 2+ (Negative); Nitrate Urine Negative (Negative); Protein Urine 1+ (Negative); Specific Grav Ur 1.025 (1.010-1.020); Urobilinogen Urine 0.2 mg/dL (0.2-1.0)
[2021-09-24 12:05] LABS: Bacteria Urine 2+ /hpf; Renal Epithelial Cells Urine Few /hpf; Squamous Epithelial Cell Urine Few /hpf (Few); WBC Urine >75 /hpf (0-3)
[2021-09-24 12:06] LABS: INR 1.7; Prothrombin Time 17.9 Seconds (9.50-12.10)
[2021-09-24 12:32] LABS: Alanine Aminotransferase 50 U/L (14-59); Albumin Level 3.1 g/dL (3.4-5.0); Alkaline Phosphatase 171 U/L (46-116); Amylase 47 U/L (25-115); Anion Gap 6 mmol/L (8-16); Aspartate Amino Transferase 42 U/L (15-37); Bilirubin,Total 0.3 mg/dL (0.00-1.00); Blood Urea Nitrogen 28 mg/dL (7-18); CRP 0.7 mg/dL (0.0-0.9); Calcium 9.4 mg/dL (8.5-10.1); Carbon Dioxide 28 mmol/L (21-32); Chloride 107 mmol/L (98-108); Creatine Kinase 54 U/L (26-192); Estimated Glomerular Filt Rate 38; Glucose 109 mg/dL (70-99); Lipase 86 U/L (73-393); Osmolality Calculated 298 mOsm/kg (285-295); Potassium 4.4 mmol/L (3.5-5.1); Sodium 141 mmol/L (136-145); Total Protein 7.2 g/dL (6.4-8.2)
[2021-09-24 12:53] LABS: D Dimer 2.36 mg/L (0.19-0.50)
== END 2021-09-24 11:33 | disposition home or self-care (01) ==
LOC: CHSLAB 11:33
PROVIDERS: PCP Internal Medicine; Visit Provider Nurse Practitioner Family
DX: I48.20 Chronic atrial fibrillation, unspecified (principal); R06.02 Shortness of breath; R10.9 Unspecified abdominal pain; R07.9 Chest pain, unspecified
CPT/HCPCS: 36415; 80053; 81001; 82150; 82550; 82553; 83690; 84484; 85025; 85380; 85610; 86140; 87086

== ENCOUNTER 2021-09-24 14:45 | Emergency (ER) | payer MEDICARE, SELFPAY ==
--- NOTE | ~2021-09-24 | CT_ITS ---
EXAMINATION: CTA chest PE protocol DATE: 09/24/2021 15:52 INDICATION: Elevated d-dimer. Covid-positive. TECHNIQUE: Computed tomography angiography (CTA) of the chest was performed with 100 mL Omnipaque-350 intravenous contrast timed to evaluate the pulmonary arteries. Coronal maximum intensity projection 3D-reconstructions were created by the technologist. Automated exposure control and iterative reconst ruction technique were employed. Exam dose: 892.41 mGy-cm total exam DLP. COMPARISON: 09/16/2021 view chest FINDINGS: There there is diagnostic contrast opacification of the pulmonary arteries and no evidence of main pulmonary artery, left or right pulmonary artery or lobar or segmental pulmonary artery embol us. The peripheral pulmonary arteries are not optimally evaluated due to motion. Thoracic aorta measures upper limits of normal. No thoracic aortic aneurysm is evident. Cardiomegaly. No pericardial or pleural effusion. No hilar or mediastinal mass lesion or lymphadenopathy. There are calcified right hilar nodes consist ent with old granulomatous disease. No pulmonary infiltrate or consolidation is detected. Lung detail is very limited due to prominent mo tion. There is a large hiatal hernia. 2.2 cm upper pole exophytic probable cyst of the right kidney. No adrenal mass lesion. Status post cholecystectomy. IMPRESSION: No central pulmonary embolus central and peripheral vessels are not optimally evaluated due to motion Cardiomegaly Large hiatal hernia Reviewed, dictated and finalized at [facility]. Reviewed, dictated and finalized at [facility]. IMPRESSION: No central pulmonary embolus central and peripheral vessels are no t optimally evaluated due to motion Cardiomegaly Large hiatal hernia
[2021-09-24 15:00] VITALS: BP 143/82; BP 148/94; PULSE 94; PULSE 96; RESP 18; RESP 20; TEMP 36.5; TEMP 37; O2SAT 96; O2SAT 97
--- NOTE | 2021-09-24 15:17 | ECG_ITS ---
Measurements Intervals [place] Rate: 88 P: [place]: 0 QRS: -5 QRSD: 93 T: 69 QT: 363 QTc: 441 Interpretive Statements ATRIAL FIBRILLATION LOW QRS VOLTAGE IN PRECORDIAL LEADS NONSPECIFIC ST & T-WAVE ABNORMALITY- HIGH LATERAL LEADS BASELINE ARTIFACT- I, III, AVR, AVL, V1-V2 ABNORMAL ECG Electronically Signed On 09-24-2021 18:47:03 CDT by Dago Randle D.O.
--- NOTE | 2021-09-24 15:29 | ED.GENADULT ---
HPI - General Adult General Chief complaint: Recheck/Abnormal Lab/Rx Stated complaint: sent by [facility] History of Present Illness HPI narrative: Halina is a 71F with a PMH of GERD, HTN, DM, obesity and GERD that was referred to the ED with pain in the left side of her chest under her breast. It is a sharp and worse with deep inspiration. There is no N/V, lightheadedness or shortness of breath that is worse than normal. Related Data Home Medications Medication Instructions Recorded Confirmed fexofenadine 180 mg tablet 180 mg PO DAILY 10/05/19 09/24/21 omeprazole 20 mg capsule,delayed 20 mg PO DAILY 10/05/19 09/24/21 release sertraline 25 mg tablet 50 mg PO DAILY 10/05/19 09/24/21 allopurinol 100 mg tablet 1 tablet PO DAILY 09/24/21 09/24/21 atorvastatin 10 mg tablet 1 tablet PO DAILY 09/24/21 09/24/21 furosemide 20 mg tablet 2 tablet PO DAILY 09/24/21 09/24/21 insulin aspart U-100 100 unit/mL See Rx Instructions .Route .COMPLEX 09/24/21 09/24/21 (3 mL) subcutaneous pen (Novolog Flexpen U-100 Insulin aspart) insulin detemir U-100 100 unit/mL 20 unit subcut HS 09/24/21 09/24/21 (3 mL) subcutaneous pen lisinopril 40 mg tablet 1 tablet PO DAILY 09/24/21 09/24/21 primidone 50 mg tablet 1 tablet PO DAILY 09/24/21 09/24/21 verapamil 120 mg tablet,extended 1 tablet PO DAILY 09/24/21 09/24/21 release Allergies Allergy/AdvReac Type Severity Reaction Status Date / Time diclofenac Allergy Unknown Unknown Verified 07/26/21 10:35 levofloxacin Allergy Unknown Unknown Verified 07/26/21 10:35 misoprostol Allergy Unknown Unknown Verified 07/26/21 10:35 nortriptyline Allergy Unknown Unknown Verified 07/26/21 10:35 paroxetine Allergy Unknown Unknown Verified 07/26/21 10:35 Sulfa (Sulfonamide Allergy Unknown Unknown Verified 07/26/21 10:35 Antibiotics) Review of Systems Constitutional: Constitutional: Reports no additional constitutional complaints, Denies chills, Denies fatigue and Denies fever(s) Eyes: Eyes: Reports no additional eye complaints ENT: Reports system reviewed and no additional complaints, except as documented Cardiovascular: Cardiovascular: Reports no additional cardiovascular complaints Respiratory: Respiratory: Reports as per HPI Gastrointestinal: Gastrointestinal: Reports no additional gastrointestinal complaints Genitourinary: Genitourinary: Reports no additional female genitourinary complaints Musculoskeletal: Musculoskeletal: Reports no additional musculoskeletal complaints Integumentary/Breasts: Skin/Breast: Reports system reviewed and no additional complaints, except as docu Neurologic: Reports system reviewed and no additional complaints, except as documented Psychiatric: Psychiatric: Reports no additional psychiatric complaints Endocrine: Endocrine: Reports no additional endocrine complaints Hematologic/Lymphatic: Hematologic/Lymphatic: Reports no additional hematologic/lymphatic complaints Allergic/Immunologic: Allergic/Immunologic: Reports no additional allergic/immunologic complaints [facility] Past Medical History Medical History Acquired valgus deformity knee Arthritis BMI greater than 40 Claustrophobia Depression Diabetes mellitus Fibromyalgia GERD (gastroesophageal reflux disease) HTN (hypertension) Right knee DJD Surgical History Surgical History History of colon surgery Family History Family History Other Diabetes mellitus Family history of arthritis Family history of malignant neoplasm Hypertension Lung cancer Social History Social History Years smoked: 24 Smoking end date: 03/13/01 Alcohol intake: current Gender identity (if verbalized by the patient): Female Exam Const: General: healthy appearing and no acute distress Nut
[2021-09-24 16:50] VITALS: BP 155/84; PULSE 78; RESP 18; TEMP 36.3; O2SAT 94
== END 2021-09-24 17:00 | disposition home or self-care (01) ==
PROVIDERS: Emergency Provider Family Medicine; PCP Internal Medicine
DX: R07.89 Other chest pain (principal); I48.91 Unspecified atrial fibrillation; I10 Essential (primary) hypertension; E11.9 Type 2 diabetes mellitus without complications; K21.9 Gastro-esophageal reflux disease without esophagitis; M19.90 Unspecified osteoarthritis, unspecified site; M79.7 Fibromyalgia; M17.11 Unilateral primary osteoarthritis, right knee; F32.A Depression, unspecified
CPT/HCPCS: 71275; 93005; 99284; Q9967

== ENCOUNTER 2021-11-01 11:53 | Outpatient (CLI) | payer MEDICARE, SELFPAY ==
--- NOTE | 2021-11-01 11:56 | EST_ITS ---
Patient Info Name: Halina Colin Age: 71 years : 1950 Gender: Female Ht: 63 in Wt: 270 lbs BSA: 2.41 m2 Exam Date: 11/01/2021 1:01 PM Exam Location: [employer] [facility] Patient Status: Outpatient Admit Date: 11/01/2021 Staff Ordering Physician: Dago Randle DO Attending Provider: Dago Randle DO Exam Type: CA stress yoel w NM History/Risk Factors Hypertension: Yes Dyslipidemia: No Congenital Heart Disease (CHD): No Diabetic Therapy: Oral Peripheral Arterial Disease (PAD): No Myocardial Infarction ([place]): No Chronic Lung Disease: No Obesity: Yes Coronary Artery Disease (CAD) No Congestive Heart Failure (CHF): Hx CHF Cardiomyopathy/LV Systolic Dysfunction: No Diabetes Mellitus: Type II COPD: No Tobacco Use: Former Cerebrovascular Disease: No Family History: Diabetes Mellitus Deep Vein Thrombosis (DVT): None Frailty Scale (CSHA): 5: Mildly Frail Cardiac Arrest: No Summary 1. 1. Negative lexiscan stress test for ischemic ST changes by ECG criteria. 2. 2. Baseline hypertension. 3. 3. Nuclear scan to follow and will be reported separately. Please correlate with it. 4. 4. Patient informed of the above results. Protocol: LEXISCAN Stress ECG Details Stage: REST Duration (min): 1 min : 2 sec HR (bpm): 68 SBP (mmHg): 141 DBP (mmHg): 95 Stage: REST Duration (min): 6 min : 11 sec HR (bpm): 71 SBP (mmHg): 141 DBP (mmHg): 95 Stage: STAGE 1 Duration (min): 0 min : 15 sec HR (bpm): 70 SBP (mmHg): 141 DBP (mmHg): 95 Stage: RECOVERY Duration (min): 0 min : 45 sec HR (bpm): 81 SBP (mmHg): 141 DBP (mmHg): 95 Stage: RECOVERY Duration (min): 1 min : 45 sec HR (bpm): 85 SBP (mmHg): 141 DBP (mmHg): 95 Stage: RECOVERY Duration (min): 2 min : 45 sec HR (bpm): 81 SBP (mmHg): 168 DBP (mmHg): 100 Stage: RECOVERY Duration (min): 3 min : 45 sec HR (bpm): 72 SBP (mmHg): 168 DBP (mmHg): 100 Stage: RECOVERY Duration (min): 4 min : 45 sec HR (bpm): 87 SBP (mmHg): 166 DBP (mmHg): 64 Stage: RECOVERY Duration (min): 5 min : 45 sec HR (bpm): 78 SBP (mmHg): 166 DBP (mmHg): 64 Stage: RECOVERY Duration (min): 6 min : 7 sec HR (bpm): 74 SBP (mmHg): 152 DBP (mmHg): 74 Rest HR: 71 bpm Peak HR: 87 bpm Rest Sys BP: 141 mmHg Peak Sys BP: 168 mmHg Max Pred HR: 150 bpm % Max Pred HR: 58 % Target HR: 128 bpm Max RPP: 14,616 bpm*mmHg Termination Reason: Completed protocol Cardiac Symptoms: Shortness of breath Total Time: 0 min : 15 sec Rest Deleon BP: 95 mmHg Peak Deleon BP: 100 mmHg Total Dose: 0.4 mg Resting ECG Atrial fibrillation. Stress ECG No ST changes. Arrhythmias None. Report Signatures
--- NOTE | 2021-11-01 17:05 | WPDCARIOSTRE ---
Nuclear Stress Test INDICATIONS Indications: COLLAZO PROCEDURE Procedure Performed: Myocardial Perf Spect-Multi Procedure: Patient underwent a lexiscan stress test and immediately was injected with 31.2 mCi of cardiolyte. Multiple tomographic images were obtained. These are of good quality. There is evidence of moderate size, moderate severity mid anterior and apical perfusion defects during stress imaging. A separate resting images were obtained after patient was injected with 9.7 mCi of cardiolyte. Multiple tomographic images were obtained. These are of good quality. There is evidence of small size, mild severity mid anterior perfusion defect during rest imaging. CONCLUSION Conclusion: 1. Abnormal myocardial perfusion imaging demonstrating moderate size anterior and apical perfusion defects suggestive of reversible ischemia. 2. Left ventriculogram demonstrates normal LV systolic function with no wall motion abnormalities and measured ejection fraction of 71%. 3. TID score is normal at 0.86.
== END 2021-11-01 11:54 | disposition home or self-care (01) ==
LOC: CHSCARD 11:54
PROVIDERS: PCP Internal Medicine; Visit Provider Internal Medicine Cardiovascular Disease
DX: R06.09 Other forms of dyspnea (principal)
CPT/HCPCS: 78452; 93017; A9502; J2785

== ENCOUNTER 2021-11-29 21:59 | Emergency (ER) | payer MEDICARE, SELFPAY ==
--- NOTE | ~2021-11-29 | XR_ITS ---
EXAM: XR knee RT 3V DATE: 11/29/2021 22:40 HISTORY: fall, LATERAL right knee pain . COMPARISON: 04/27/2021. FINDINGS: Decreased mineralization. No fracture or dislocation. No lytic or blastic lesion. Tricompa rtmental arthritic change with chondrocalcinosis. No erosion or periosteal change. Small-volume joint effusion. IMPRESSION: No acute osseous finding in the right knee. Reviewed, dictated and finalized at [facility].
--- NOTE | ~2021-11-29 | XR_ITS ---
EXAM: XR ribs RT 2V w CXR 2V DATE: 11/29/2021 22:40 HISTORY: fall,RIGHT rib pain . COMPARISON: X-ray chest 09/17/2019, CTPA 09/24/2021. FINDINGS: Cholecystectomy clips. Large hiatal hernia. Decreased mineralization. Possible nondisplace d fracture of the right lateral eighth rib. No lytic or blastic lesion. Severe degenerative changes i n the shoulders. Multilevel degenerative disc disease in the spine No erosion or periosteal change. S oft tissues within normal limits. IMPRESSION: Possible nondisplaced right lateral eighth rib fracture, correlate with pain/tenderness. Reviewed, dictated and finalized at [facility].
--- NOTE | ~2021-11-29 | CT_ITS ---
EXAMINATION: CT brain wo con DATE: 11/29/2021 23:12 INDICATION: Headache. Head injury. TECHNIQUE: Computed tomography (CT) of the head was performed without intravenous contrast. The mA wa s adjusted according to patient size. Iterative reconstruction technique was employed. The dose-lengt h product was 681.00 mGy-cm. COMPARISON: Head CT 05/29/2017 FINDINGS: There are scattered areas of low attenuation in the cerebral white matter. There is no intr acranial hemorrhage, acute infarction, or abnormal intracranial mass lesion. The ventricles are emma l in size. There are likely changes of ocular lens replacement surgeries. There is mild mucosal thick ening in the ethmoid sinuses. The mastoid air cells are normal. IMPRESSION: 1. Stable mild nonspecific cerebral white matter disease, which likely represents chronic small vesse l ischemic disease. Reviewed, dictated and finalized at [facility]. IMPRESSION: 1. Stable mild nonspecific cerebral white matter disease, which likely represen ts chronic small vessel ischemic disease.
--- NOTE | ~2021-11-29 | CT_ITS ---
EXAMINATION: CT cervical spine wo con DATE: 11/29/2021 23:13 INDICATION: Neck pain. Fall. TECHNIQUE: Computed tomography (CT) of the cervical spine was performed without intravenous contrast. Automated exposure control and iterative reconstruction technique were employed. The dose-length pro duct was 555.47 mGy-cm. COMPARISON: None FINDINGS: There is 13 degrees dextroscoliosis of cervicothoracic spine. There is 3 mm retrolisthesis of C5 on C6. Vertebral body heights are normal. There is severely decreased disc height at C5-C6 and moderately decreased disc height at C6-C7. There is an old healed fracture of right clavicle. The fol lowing disc levels are specifically discussed: C2-C3: There is no uncovertebral joint osteoarthritis. There is mild bilateral facet joint osteoarthr itis. There is no neural foraminal stenosis. There is no central canal stenosis. C3-C4: There is no uncovertebral joint osteoarthritis. There is mild left facet joint osteoarthritis. There is no neural foraminal stenosis. There is no central canal stenosis. C4-C5: There is no uncovertebral joint osteoarthritis. There is no facet joint osteoarthritis. There is no neural foraminal stenosis. There is no central canal stenosis. C5-C6: There is severe bilateral uncovertebral joint osteoarthritis. There is severe bilateral facet joint osteoarthritis. There is mild bilateral neural foraminal stenosis. There is mild central canal stenosis. C6-C7: There is mild bilateral uncovertebral joint osteoarthritis. There is moderate right and severe left facet joint osteoarthritis. There is mild left neural foraminal stenosis. There is no central c anal stenosis. C7-T1: There is no uncovertebral joint osteoarthritis. There is mild bilateral facet joint osteoarthr itis. There is no neural foraminal stenosis. There is no central canal stenosis. IMPRESSION: 1. No fracture. 2. Severe cervical spondylosis. Reviewed, dictated and finalized at location [facility].
[2021-11-29 22:00] VITALS: BP 157/84; PULSE 83; RESP 22; TEMP 36; O2SAT 94
[2021-11-29] MEDS: MORPHINE SULFATE (*CRX) 4 MG/ML INJ IM (22:12)
[2021-11-29] MEDS: ACETAMINOPHEN 325 MG TABLET 650 MG PO (22:12)
--- NOTE | 2021-11-29 22:59 | ED.FALL ---
HPI - Fall General Chief Complaint: Fall Stated Complaint: fall Time Seen by Provider: 11/29/21 22:03 Source: patient, EMS and RN notes reviewed Mode of arrival: EMS Limitations: no limitations History of Present Illness HPI Narrative: Patient was adamant about falling and hitting her right knee and her right ribs. Patient also hit her right head with no loss of consciousness. complaint: fall Onset (ago): hour(s) (1) Fall from: standing Fall witnessed: no Place fall occurred: home Loss of consciousness: none Prolonged down time: no Symptoms prior to fall: none Context: tripped/slipped Location of injury: head and mouth Severity: mild Severity scale (1-10): 3 Quality: dull and aching Associated symptoms (after fall): headache and shortness of breath (no acute SOB) Related Data Home Medications Medication Instructions Recorded Confirmed omeprazole 20 mg capsule,delayed 20 mg PO DAILY 10/05/19 11/29/21 release sertraline 25 mg tablet 50 mg PO DAILY 10/05/19 11/29/21 allopurinol 100 mg tablet 1 tablet PO DAILY 09/24/21 11/29/21 atorvastatin 10 mg tablet 1 tablet PO DAILY 09/24/21 11/29/21 insulin aspart U-100 100 unit/mL See Rx Instructions .Route .COMPLEX 09/24/21 11/29/21 (3 mL) subcutaneous pen (Novolog Flexpen U-100 Insulin aspart) insulin detemir U-100 100 unit/mL 20 unit subcut HS 09/24/21 11/29/21 (3 mL) subcutaneous pen lisinopril 40 mg tablet 1 tablet PO DAILY 09/24/21 11/29/21 verapamil 120 mg tablet,extended 1 tablet PO DAILY 09/24/21 11/29/21 release warfarin 6 mg tablet See Rx Instructions PO DAILY 11/08/21 11/29/21 insulin glargine 100 unit/mL (3 15 unit subcut HS 11/29/21 11/29/21 mL) subcutaneous pen (Basaglar KwikPen U-100 Insulin) propranolol 40 mg tablet 40 mg PO DAILY 11/29/21 11/29/21 Allergies Allergy/AdvReac Type Severity Reaction Status Date / Time diclofenac Allergy Unknown Unknown Verified 11/08/21 15:11 levofloxacin Allergy Unknown Unknown Verified 11/08/21 15:11 misoprostol Allergy Unknown Unknown Verified 11/08/21 15:11 nortriptyline Allergy Unknown Unknown Verified 11/08/21 15:11 paroxetine Allergy Unknown Unknown Verified 11/08/21 15:11 Sulfa (Sulfonamide Allergy Unknown Unknown Verified 11/08/21 15:11 Antibiotics) Review of Systems Review of Systems: All systems reviewed & are unremarkable except as noted in HPI and below Constitutional: Constitutional: Reports no additional constitutional complaints Eyes: Eyes: Reports no additional eye complaints ENT: Reports system reviewed and no additional complaints, except as documented Cardiovascular: Cardiovascular: Reports no additional cardiovascular complaints Respiratory: Respiratory: Reports no additional respiratory complaints Gastrointestinal: Gastrointestinal: Reports no additional gastrointestinal complaints Genitourinary: Genitourinary: Reports no additional female genitourinary complaints Musculoskeletal: Musculoskeletal: Reports no additional musculoskeletal complaints Integumentary/Breasts: Skin/Breast: Reports system reviewed and no additional complaints, except as docu Neurologic: Reports system reviewed and no additional complaints, except as documented Psychiatric: Psychiatric: Reports no additional psychiatric complaints Endocrine: Endocrine: Reports no additional endocrine complaints Hematologic/Lymphatic: Hematologic/Lymphatic: Reports no additional hematologic/lymphatic complaints Allergic/Immunologic: Allergic/Immunologic: Reports no additional allergic/immunologic complaints PMFSH Past Medical History Medical History Acquired valgus deformity knee Arthritis BMI greater than 40 Claustrophobia Depression Diabetes mellitus Fibromyalgia GERD (gastroesophageal reflux disease) HTN (hypertension) Right knee DJD Surgical History Surgical History History of colon
[2021-11-29 23:36] VITALS: BP 140/85; PULSE 84; RESP 18; TEMP 36.1; O2SAT 96
== END 2021-11-29 23:57 | disposition home or self-care (01) ==
PROVIDERS: Emergency Provider Emergency Medicine; PCP Internal Medicine
DX: S80.01XA Contusion of right knee, initial encounter (principal); S20.211A Contusion of right front wall of thorax, initial encounter; S09.90XA Unspecified injury of head, initial encounter; W19.XXXA Unspecified fall, initial encounter
CPT/HCPCS: 70450; 71046; 71100; 72125; 73562; 96372; 99284; A9270; J2270

== ENCOUNTER 2021-12-20 13:04 | Outpatient (RCR) | payer MEDICARE, SELFPAY ==
--- NOTE | 2021-12-20 13:57 | PTOPEVAL1 ---
Assessment and note entered by Azar Garcia Evaluation Information Diagnosis unsteady gait, weakness Onset 12/20/20 Subjective Information Pt. reports that she has been having difficulty with her right knee since last year. She reports that she is due for right knee replacement, but her doctor requested that she lose more weight. She states that she cannot perform her shopping effectively anymore. She states she has had injections but they only help briefly to reduce her right knee pain. She states that when she has something to hold she can walk through the store, but currently has to use a cane or walker. She reports that she had a couple falls last month. She reports that her right knee will give out on her. She states that her goal is to be able to walk further and with more comfort. Reported Pain Level Pain Score 2: Self Report Assessment PT Clinical Summary Pt. is a 71 year old female who enters the clinic due to recent falls and developed weakness. she presents as a high fall risk this date. Discussed the importance of remaining active with the pt. She is encouraged to pursue more use of the walker rather than the cane. She currently presents with impaired balance, impaired strength, impaired gait, pain and functional decline. Continued treatment is indicated in order to improve these areas to allow the pt. to complete all IADL's with improved safety and efficiency. Plan of Care Interventions Electrical Stimulation,Gait Training,Hot Pack/Cold Pack,Manual Therapy,Neuro Re-education, Therapeutic Activities,Therapeutic Exercise,Self- Care/Home Management PT Services Indicated Yes Treatment Frequency and 2x/week x 10 visits Duration These treatments will address the objective and functional deficits as defined above. The patient will be advanced safely and appropriately in order for the patient to progress towards his/her prior level of function. Additional exercises will be introduced and as well as a comprehensive home exercise program upon discharge, if needed, ?to ensure carryover of functional gains achieved in the clinic. This treatment plan has been reviewed and agreement upon by the patient.
== END 2022-01-24 14:15 | disposition home or self-care (01) ==
LOC: CHSPT 13:04
PROVIDERS: PCP Internal Medicine; Visit Provider Internal Medicine
DX: M15.9 Polyosteoarthritis, unspecified (principal); R26.81 Unsteadiness on feet
CPT/HCPCS: 97014; 97110; 97112; 97161; 97530; G0283

== ENCOUNTER 2022-06-21 12:52 | Outpatient (CLI) | payer MEDICARE, SELFPAY ==
--- NOTE | ~2022-06-21 | MM_ITS ---
EXAMINATION: MM screening cisco BI w freya HISTORY: Screening mammogram TECHNIQUE: Craniocaudal and mediolateral oblique 3-D tomosynthesis images were obtained and synthetic 2-D images were generated. CAD analysis was submitted and interpreted. COMPARISON: 07/21/2020, 01/25/2019, 01/26/2018 bilateral screening mammogram examinations BREAST PARENCHYMAL COMPOSITION: The breasts are almost entirely fatty. FINDINGS: Stable bilateral benign calcifications. There is no evidence of suspicious mass, calcificat ion, or architectural distortion to suggest malignancy in either breast. There has been no suspicious interval change. IMPRESSION: 1. No mammographic evidence of malignancy. 2. Recommend routine screening mammography in one year. BI-RADS Category 2: Benign finding(s). Reviewed, dictated and finalized at location A.
== END 2022-06-21 12:53 | disposition home or self-care (01) ==
LOC: CHSIMG 12:53
PROVIDERS: PCP Internal Medicine; Visit Provider Internal Medicine
DX: Z12.31 Encounter for screening mammogram for malignant neoplasm of breast (principal)
CPT/HCPCS: 77063; 77067

== ENCOUNTER 2022-11-10 12:56 | Outpatient (CLI) | payer MEDICARE, SELFPAY ==
--- NOTE | ~2022-11-10 | DEXA_ITS ---
Bone Density Report Name: BARBARA ESTRADA Age: 72 Sex: Female Ethnicity: White Date of : 1950 Indication: postmenopausal; screening for osteoporosis; height loss; inflammatory bowel disease; prior fracture; hysterectomy; rheumatoid arthritis; Referring Provider: Jose Tovar Study: Bone densitometry was performed. Exam Date: November 10, 2022 Accession number: [id number] Bone Density: Region BMD T-score Z-score Classification AP Spine(L1-L4) 1.270 2.0 4.2 Normal Femoral Neck (Left) 0.663 -1.7 0.2 Osteopenia Total Hip (Left) 0.983 0.3 1.9 Normal Femoral Neck (Right) 0.586 -2.4 -0.5 Osteopenia Total Hip (Right) 0.891 -0.4 1.2 Normal Femoral Neck Mean 0.625 -2.0 -0.1 Osteopenia Total Hip Mean 0.937 0.0 1.5 Normal World Health Organization criteria for BMD impression classify patients as: Normal (T-score at or above -1.0), Osteopenia (T-score between -1.0 and -2.5), or Osteoporosis (T-score at or below -2.5). 10-year Fracture Risk(1): Major Osteoporotic Fracture 23% Hip Fracture 5.5% Reported Risk Factors: [place] (), Neck BMD=0.586, BMI=45.7, previous fracture, rheumatoid arthritis (1) FRAX(R) Version 3.08. Fracture probability calculated for an untreated patient. Fracture probability may be lower if the patient has received treatment. Clinical Information Provided by Patient: Has had a low trauma fracture Has rheumatoid arthritis Has used the following medications: HRT (i.e. estrogen/hormone therapy), Vitamin D, Calcium Has the following medical conditions: Inflammatory bowel diseases, Hysterectomy Patient maximum height was 65 Menopause Age: 51 No regular weight bearing exercise Onset of menses at age 12 Number of children 3 Impression: The patient has low bone mass, based on the Right Femoral Neck T-score. The patient has risk factors, including: previous fracture. Discussion: BONE DENSITY IS LOW AT ONE OR MORE SKELETAL SITES. This patient's lowest T-score is low at one or more skeletal sites. It meets the World Health Organization's (WHO) criteria for ?low bone mass? (T-score between -1.0 and -2.5). The patient's 10-year risk of fracture as calculated by FRAX is less than the threshold where pharmacological therapy is recommended by the National Osteoporosis Foundation (NOF). However, all treatment decisions require clinical judgment and consideration of individual patient factors, including patient preferences, comorbidities, previous drug use, risk factors not captured in the FRAX model (e.g., frailty, falls, vitamin D deficiency, increased bone turnover, interval significant decline in bone density) and possible under or overestimation of fracture risk by FRAX. The patient should follow a healthful lifestyle (good nutrition with adequate calcium and vitamin D, and appropriate weight-bearing exercise). Lena
== END 2022-11-10 12:57 | disposition home or self-care (01) ==
LOC: CHSIMG 12:58
PROVIDERS: PCP Internal Medicine; Visit Provider Internal Medicine
DX: Z78.0 Asymptomatic menopausal state (principal); M85.89 Other specified disorders of bone density and structure, multiple sites
CPT/HCPCS: 77080

== ENCOUNTER 2022-12-03 12:52 | Emergency (ER) | payer MEDICARE, SELFPAY ==
[2022-12-03] VITALS (22 sets, daily range): BP systolic 112–178; BP diastolic 77–140; PULSE 63–97; RESP 17–34; TEMP 36–37.2; O2SAT 90–98
--- NOTE | ~2022-12-03 | XR_ITS ---
EXAMINATION: XR chest 1V portable Exam Date/Time: 12/03/2022 14:18 CDT HISTORY: Dizziness, N/V today Comparison: 11/29/2021. RESULT: Lines, tubes, and devices: None. Lungs and pleura: Clear. Cardiomediastinal silhouette: Stable. Large hiatal hernia. Other: No acute osseous or upper abdominal finding. Possible right lateral eighth rib fracture descr ibed in the prior study is not well visualized, may be obscured by technique. Dense radiopacity over the GE junction, not seen in the prior study, possibly external. IMPRESSION: No acute cardiopulmonary process. Reviewed, dictated and finalized at location K.
--- NOTE | ~2022-12-03 | CT_ITS ---
EXAMINATION: CT brain wo con DATE: 12/03/2022 13:20 INDICATION: Dizziness. Nausea and vomiting. TECHNIQUE: Computed tomography (CT) of the head was performed without intravenous contrast. The dose- length product was 681.00 mGy-cm. Automated exposure control and iterative reconstruction technique w ere employed. COMPARISON: None FINDINGS: No gross intracranial hemorrhage, infarction, mass or mass effect. No ventriculomegaly or m idline shift. Basilar cisterns are patent. Paranasal sinuses and mastoids are pneumatized. No depress ed skull fractures. There are scattered mild periventricular and subcortical white matter changes, mo st likely related to small vessel ischemic disease (microangiopathy). IMPRESSION: 1. No acute intracranial abnormality. Reviewed, dictated and finalized at location A.
--- NOTE | 2022-12-03 12:58 | ECG_ITS ---
Measurements Intervals [place] Rate: 69 P: MT: 0 QRS: -7 QRSD: 109 T: 24 QT: 392 QTc: 421 Interpretive Statements ATRIAL FIBRILLATION INCOMPLETE RIGHT BUNDLE BRANCH BLOCK CONSIDER INFERIOR INFARCT, AGE INDETERMINATE ABNORMAL ECG COMPARED TO ECG 09/24/2021 15:40:54 NO SIGNIFICANT CHANGES Electronically Signed On 12-03-2022 14:49:12 CDT by Dago Randle D.O.
--- NOTE | 2022-12-03 13:12 | ED.DIZZY ---
HPI - Dizziness General Chief Complaint: Dizziness Stated Complaint: neausea, vomiting, high blood pressure Time Seen by Provider: 12/03/22 12:58 Source: patient Mode of arrival: ambulatory History of Present Illness HPI Narrative: 72 yo F with PMHx of DM 2, HTN presents to ED due to dizziness, described as spinning sensation, a/w nausea, vomiting, not feeling well, frontal headache. BP at home has been 180-190/100-120. Family is concerned that patient has not been taking her meds as directed Pt is supposedly on 4 different BP meds. MD elicited complaint: dizziness Onset (ago): hour(s) Timing: sudden onset Severity: severe Description: room spinning and off-balance History of similar symptoms: No Exacerbating factors: nothing Relieving factors: nothing Associated symptoms: nausea, vomiting and weakness Associated neuro symptoms: vision changes Stroke scale total: 7 Related Data Home Medications Medication Instructions Recorded Confirmed omeprazole 20 mg capsule,delayed 20 mg PO DAILY 10/05/19 12/03/22 release sertraline 25 mg tablet 25 mg PO QHS 10/05/19 12/03/22 atorvastatin 10 mg tablet 1 tablet PO DAILY 09/24/21 12/03/22 insulin aspart U-100 100 unit/mL See Rx Instructions .Route .COMPLEX 09/24/21 12/03/22 (3 mL) subcutaneous pen (Novolog FlexPen U-100 Insulin aspart) insulin detemir U-100 100 unit/mL 20 unit subcut HS 09/24/21 12/03/22 (3 mL) subcutaneous pen verapamil 120 mg tablet,extended 1 tablet PO DAILY 09/24/21 12/03/22 release insulin glargine 100 unit/mL (3 15 unit subcut HS 11/29/21 12/03/22 mL) subcutaneous pen (Basaglar KwikPen U-100 Insulin) propranolol 40 mg tablet 20 mg PO TID 11/29/21 12/03/22 allopurinol 100 mg tablet 100 mg PO DAILY 12/03/22 12/03/22 aspirin 81 mg tablet 81 mg PO DAILY 12/03/22 12/03/22 fexofenadine 180 mg tablet 180 mg PO DAILY 12/03/22 12/03/22 magnesium 500 mg tablet 500 mg PO DAILY 12/03/22 12/03/22 Allergies Allergy/AdvReac Type Severity Reaction Status Date / Time diclofenac Allergy Unknown Unknown Verified 12/03/22 13:25 levofloxacin Allergy Unknown Unknown Verified 12/03/22 13:25 misoprostol Allergy Unknown Unknown Verified 12/03/22 13:25 nortriptyline Allergy Unknown Unknown Verified 12/03/22 13:25 paroxetine Allergy Unknown Unknown Verified 12/03/22 13:25 Sulfa (Sulfonamide Allergy Unknown Unknown Verified 12/03/22 13:25 Antibiotics) Review of Systems Constitutional: Constitutional: Reports as per HPI and Reports no additional constitutional complaints Eyes: Eyes: Reports as per HPI and Reports no additional eye complaints ENT: Reports system reviewed and no additional complaints, except as documented and Reports as per HPI Cardiovascular: Cardiovascular: Reports as per HPI and Reports no additional cardiovascular complaints Respiratory: Respiratory: Reports as per HPI and Reports no additional respiratory complaints Gastrointestinal: Gastrointestinal: Reports as per HPI and Reports no additional gastrointestinal complaints Genitourinary: Genitourinary: Reports as per HPI Musculoskeletal: Musculoskeletal: Reports no additional musculoskeletal complaints and Reports as per HPI Integumentary/Breasts: Skin/Breast: Reports system reviewed and no additional complaints, except as docu and Reports as per HPI Neurologic: Reports system reviewed and no additional complaints, except as documented and Reports as per HPI Psychiatric: Psychiatric: Reports no additional psychiatric complaints and Reports as per HPI Endocrine: Endocrine: Reports no additional endocrine complaints and Reports as per HPI Hematologic/Lymphatic: Hematologic/Lymphatic: Reports no additional hematologic/lymphatic complaints and Reports as per HPI Allergic/Immunologic: Allergic/Immunologic: Reports no additional allergic/immunologic complaints and Reports as per HPI [facility] Past Medical History Medical History Acquir
[2022-12-03 13:23] LABS: Basophils Absolute Auto 0.07 K/mm3 (0.00-0.10); Basophils Percent Auto 0.8 % (0.0-1.0); Eosinophils Absolute Auto 0.23 K/mm3 (0.02-0.50); Eosinophils Percent Auto 2.5 % (1.0-6.0); Hematocrit 41.3 % (35.0-42.0); Hemoglobin 13.4 g/dL (11.7-13.8); Immature Granulocyte Absolute 0.04 K/mm3 (0.00-0.00); Immature Granulocyte Percent A 0.4 % (0.0-0.0); Lymphocytes Absolute Auto 1.16 K/mm3 (1.10-4.50); Lymphocytes Percent Auto 12.5 % (18.0-42.0); Mean Corpuscular HGB Conc 32.4 g/dL (32.0-36.0); Mean Corpuscular Hemoglobin 30.1 pg (27.0-31.0); Mean Corpuscular Volume 92.8 fL (78.0-102.0); Mean Platelet Volume 12.2 fl (9.2-11.8); Monocytes Absolute Auto 0.67 K/mm3 (0.10-0.90); Monocytes Percent Auto 7.2 % (2.0-11.0); Neutrophils Absolute Auto 7.1 K/mm3 (1.7-7.2); Neutrophils Percent Auto 76.6 % (50.0-70.0); Platelet Count Result 233 K/mm3 (150-420); Red Blood Count 4.45 M/mm3 (4.20-5.40); Red Cell Distribution Width 14.6 % (11.6-14.4); White Blood Count 9.3 K/mm3 (4.8-10.8)
[2022-12-03] MEDS: ONDANSETRON INJ 4 MG/2 ML VIAL IV PUSH ×2 (13:23→15:21)
[2022-12-03 13:26] LABS: Glucose Point of Care 154 mg/dl (65-105)
--- NOTE | 2022-12-03 13:31 | PC.NURSE ---
[address] [place] unable to push, speaking to [facility] staff.
[2022-12-03 13:34] LABS: Partial Thromboplastin Time 26.2 SEC (23.90-30.70); Prothrombin Time 10.5 Seconds (9.50-12.10)
--- NOTE | 2022-12-03 13:34 | PC.NURSE ---
call to air evac, 18 min eta , checking weather. flight [id number] has accepted pt. on standby
[2022-12-03 13:43] LABS: Alanine Aminotransferase 31 U/L (14-59); Albumin Level 2.9 g/dL (3.4-5.0); Alkaline Phosphatase 179 U/L (46-116); Anion Gap 10 mmol/L (8-16); Aspartate Amino Transferase 21 U/L (15-37); Bilirubin,Total 0.4 mg/dL (0.00-1.00); Blood Urea Nitrogen 31 mg/dL (7-18); Calcium 9.9 mg/dL (8.5-10.1); Carbon Dioxide 25 mmol/L (21-32); Chloride 104 mmol/L (98-108); Estimated CRCL calculation 43 ml/min; Estimated Glomerular Filt Rate 43; Glucose 173 mg/dL (70-99); NT Pro B Type Natriuretic Pept 2872 pg/mL (0-125); Osmolality Calculated 298 mOsm/kg (285-295); Potassium 4.5 mmol/L (3.5-5.1); Sodium 139 mmol/L (136-145); Total Protein 7.6 g/dL (6.4-8.2); Troponin I 5.6 ng/L (0.00-60.4)
--- NOTE | 2022-12-03 14:35 | PC.NURSE ---
Pressure dressing applied to right hand (failed IV site) and right AC (lab draw site).
[2022-12-03] MEDS: SODIUM CHLORIDE 0.9% IV 500 ML IRRIGATION (15:18)
== END 2022-12-03 15:57 | disposition short-term general hospital (02) ==
PROVIDERS: Emergency Provider Emergency Medicine; PCP Internal Medicine
DX: I63.9 Cerebral infarction, unspecified (principal); I48.91 Unspecified atrial fibrillation; I16.0 Hypertensive urgency; E11.9 Type 2 diabetes mellitus without complications; Z79.899 Other long term (current) drug therapy; Z79.4 Long term (current) use of insulin; Z79.82 Long term (current) use of aspirin
CPT/HCPCS: 36415; 37195; 70450; 71045; 80053; 82948; 83880; 84484; 85025; 85610; 85730; 93005; 96361; 96374; 96376; 99285; J2405; J2997; J7040

== ENCOUNTER 2023-03-14 05:33 | Emergency (ER) | payer MEDICARE, SELFPAY ==
--- NOTE | ~2023-03-14 | CT_ITS ---
Non-contrast Head CT History: Status post fall COMPARISON: 12/03/2022 Technique: Axial non-contrast imaging of the brain was performed. Dose reduction technique was used on this scan by utilizing automated exposure control and iterative reconstruction technique. The dose -length product (DLP) was 681.00 mGy-cm. Findings: There is no evidence of intracranial hemorrhage, mass lesion, or acute infarct. Brain par enchyma appears normal. The ventricles and subarachnoid spaces are normal in size. The calvarium ap pears normal. The visualized paranasal sinuses and mastoid air cells are clear. Impression: No significant abnormality seen. Reviewed, dictated and finalized at location . CE MACHINES TEACHER Impression: No significant abnormality seen.
--- NOTE | ~2023-03-14 | XR_ITS ---
Right ankle Technique: AP, oblique, and lateral views were obtained. Clinical History: Pain Findings: No acute fracture or dislocation is seen. Osseous alignment is anatomic. Ankle mortise and other visualized joint spaces are preserved. Soft tissues are otherwise unremarkable. Impression: Unremarkable right ankle. Reviewed, dictated and finalized at location . EY SKINNER Impression: Unremarkable right ankle.
--- NOTE | ~2023-03-14 | XR_ITS ---
AP and oblique views of the left ribs, and PA and lateral chest radiographs Clinical History: Pain Findings: No rib fracture is seen. Osseous alignment is anatomic. Lungs are clear, without focal cons olidation or pleural effusion. Cardiomediastinal contour is within normal limits. Moderate to large h iatal hernia present. Impression: No rib fracture is seen. Moderate to large hiatal hernia. Reviewed, dictated and finalized at [facility]. 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 Moderate to large hiatal hernia.
--- NOTE | ~2023-03-14 | CT_ITS ---
Noncontrast CT scan of the cervical spine Technique: Multiple contiguous axial [address] images of the cervical spine were obtained and rec onstructed in 2D sagittal and coronal planes on the acquisition scanner. Dose reduction technique was used on this scan by utilizing automated exposure control, adjustment of the mA and/or kV according to patient size. The dose-length product (DLP) was 681.00 mGy-cm. Clinical History: Pain COMPARISON: 11/28/2021 Findings: No acute fracture or subluxation. Osseous limit is unchanged from prior exam. There is mireya re degenerative disc narrowing at C5-C6 and C6-C7. There is probable mild bilateral neural foraminal compromise at C5-C6. No prevertebral soft tissue swelling. Impression: No acute fracture or subluxation of the cervical spine. Degenerative change, essentially stable from prior exam. Reviewed, dictated and finalized at [facility]. L SEWER Impression: No acute fracture or subluxation of the cervical spine. Degenerative change, essentially stable from prior exam.
--- NOTE | ~2023-03-14 | XR_ITS ---
Left Shoulder Technique: AP and scapular Y views were obtained. Clinical History: Pain Findings: No fracture or dislocation is seen. There is moderate AC joint and glenohumeral joint degen erative change. Soft tissues are unremarkable. Impression: No fracture or dislocation. Moderate degenerative changes, as above. Reviewed, dictated and finalized at [facility]. ORATE EVENT PLANNER Impression: No fracture or dislocation. Moderate degenerative changes, as above.
--- NOTE | ~2023-03-14 | XR_ITS ---
Right Shoulder Technique: AP and scapular Y views were obtained. Clinical History: Pain Findings: No fracture or dislocation is seen. There is advanced glenohumeral joint and AC joint degen erative change. Humeral head is high riding. Soft tissues are unremarkable. Impression: High riding humeral head suggests underlying rotator cuff tear. Advanced degenerative change of the glenohumeral and AC joints. Reviewed, dictated and finalized at location . 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 Advanced degenerative change of the glenohumeral and AC joints.
[2023-03-14 05:43] VITALS: BP 153/93; PULSE 85; RESP 20; TEMP 36.6; O2SAT 98
--- NOTE | 2023-03-14 05:52 | ED.FALL ---
HPI - Fall General Chief Complaint: Fall Stated Complaint: fall rt shoulder injury Time Seen by Provider: 03/14/23 05:45 Source: patient Mode of arrival: EMS Limitations: no limitations History of Present Illness HPI Narrative: patient is a 72-year-old female with a fall at home. Patient missed a step going to the bathroom and fell backwards ground level fall. She fell onto her upper back and right side. She injured her right upper back and her right rib cage and her right ankle. Patient is on Eliquis for AFib it appears. this was a mechanical fall and not symptom related prior to event. MD complaint: fall Onset (ago): minute(s) ( prior to arrival) Fall from: standing Fall witnessed: no Place fall occurred: home Loss of consciousness: none Prolonged down time: no Symptoms prior to fall: none Context: tripped/slipped Location of injury: back ( upper back around both shoulders) and other ( right ankle and right ribcage) Location of injury - extremities: Right: ankle Severity: moderate Severity scale (1-10): 6 Quality: sharp and throbbing Associated symptoms (after fall): denies Related Data Home Medications Medication Instructions Recorded Confirmed sertraline 25 mg tablet 25 mg PO QHS 10/05/19 03/14/23 atorvastatin 10 mg tablet 1 tablet PO DAILY 09/24/21 03/14/23 insulin aspart U-100 100 unit/mL See Rx Instructions .Route .COMPLEX 09/24/21 12/08/22 (3 mL) subcutaneous pen (Novolog FlexPen U-100 Insulin aspart) insulin glargine 100 unit/mL (3 15 unit subcut HS 11/29/21 03/14/23 mL) subcutaneous pen (Basaglar KwikPen U-100 Insulin) apixaban 5 mg tablet (Eliquis) 5 mg PO BID 03/14/23 03/14/23 ferrous sulfate 325 mg (65 mg 325 mg PO TID 03/14/23 03/14/23 iron) tablet insulin glargine 100 unit/mL (3 unit subcut 03/14/23 mL) subcutaneous pen (Basaglar KwikPen U-100 Insulin) lisinopril 40 mg tablet 40 mg PO DAILY 03/14/23 03/14/23 trospium 20 mg tablet 20 mg PO BID 03/14/23 03/14/23 Allergies Allergy/AdvReac Type Severity Reaction Status Date / Time diclofenac Allergy Unknown Unknown Verified 12/08/22 14:22 levofloxacin Allergy Unknown Unknown Verified 12/08/22 14:22 misoprostol Allergy Unknown Unknown Verified 12/08/22 14:22 nortriptyline Allergy Unknown Unknown Verified 12/08/22 14:22 paroxetine Allergy Unknown Unknown Verified 12/08/22 14:22 Sulfa (Sulfonamide Allergy Unknown Unknown Verified 12/08/22 14:22 Antibiotics) Review of Systems Review of Systems: All systems reviewed & are unremarkable except as noted in HPI and below Constitutional: Constitutional: Reports no additional constitutional complaints Eyes: Eyes: Reports no additional eye complaints ENT: Reports system reviewed and no additional complaints, except as documented Cardiovascular: Cardiovascular: Reports no additional cardiovascular complaints Respiratory: Respiratory: Reports no additional respiratory complaints Gastrointestinal: Gastrointestinal: Reports no additional gastrointestinal complaints Genitourinary: Genitourinary: Reports no additional female genitourinary complaints Musculoskeletal: Musculoskeletal: Reports no additional musculoskeletal complaints Integumentary/Breasts: Skin/Breast: Reports system reviewed and no additional complaints, except as docu Neurologic: Reports system reviewed and no additional complaints, except as documented Psychiatric: Psychiatric: Reports no additional psychiatric complaints Endocrine: Endocrine: Reports no additional endocrine complaints Hematologic/Lymphatic: Hematologic/Lymphatic: Reports no additional hematologic/lymphatic complaints Allergic/Immunologic: Allergic/Immunologic: Reports no additional allergic/immunologic complaints PMFSH Past Medical History Medical History Acquired valgus deformity knee Arthritis BMI greater than 40 Claustrophobia Depression Diabetes mellitus Fibromyalgia GERD (gas
[2023-03-14] MEDS: MORPHINE SULFATE (*CRX) 4 MG/ML INJ IV PUSH (06:00)
[2023-03-14 07:30] VITALS: BP 170/78; PULSE 97; RESP 16; TEMP 37.1; O2SAT 98
[2023-03-14 07:55] VITALS: BP 170/78; PULSE 97; RESP 16; TEMP 37.1; O2SAT 98
== END 2023-03-14 07:55 | disposition home or self-care (01) ==
PROVIDERS: Emergency Provider Emergency Medicine; PCP Internal Medicine
DX: S46.011A Strain of muscle(s) and tendon(s) of the rotator cuff of right shoulder, initial encounter (principal); S93.401A Sprain of unspecified ligament of right ankle, initial encounter; I10 Essential (primary) hypertension; E11.9 Type 2 diabetes mellitus without complications; Z79.899 Other long term (current) drug therapy; Z79.4 Long term (current) use of insulin; Z87.891 Personal history of nicotine dependence; W10.8XXA Fall (on) (from) other stairs and steps, initial encounter; Y92.002 Bathroom of unspecified non-institutional (private) residence as the place of occurrence of the external cause
CPT/HCPCS: 70450; 71046; 71100; 72125; 73030; 73610; 96374; 99284; A4565; J2270

== ENCOUNTER 2023-09-14 04:44 | Emergency (ER) | payer MEDICARE, SELFPAY ==
[2023-09-14] VITALS (38 sets, daily range): BP systolic 110–189; BP diastolic 70–142; PULSE 60–92; RESP 12–28; TEMP 36.5–36.9; O2SAT 81–98
--- NOTE | ~2023-09-14 | XR_ITS ---
EXAMINATION: XR chest 1V portable DATE: 09/14/2023 07:21 INDICATION: Pulmonary edema. TECHNIQUE: A single frontal view of the chest was obtained. COMPARISON: Chest 2 views 03/14/2023, CT abdomen and pelvis 09/14/2023 FINDINGS: There is a diffuse interstitial pattern in the lungs, consistent with mild pulmonary edema. No pleural effusion or pneumothorax. Cardiomegaly is noted. There is a large hiatal hernia. IMPRESSION: 1. Mild pulmonary edema. 2. Large hiatal hernia. 3. Cardiomegaly. Reviewed, dictated and finalized at location E.
--- NOTE | ~2023-09-14 | CT_ITS ---
EXAMINATION: CT abdomen pelvis w con DATE: 09/14/2023 06:29 INDICATION: Abdominal pain. TECHNIQUE: Computed tomography (CT) of the abdomen and pelvis was performed with 100 mL Omnipaque 350 intravenous contrast. Automated exposure control and iterative reconstruction technique were employe d. The dose-length product was 1483.48 mGy-cm. COMPARISON: CT abdomen and pelvis 09/08/2020 FINDINGS: The visualized portions of the lung bases demonstrate mild atelectasis. A calcified right l joyce nodule and calcified right hilar lymph nodes are consistent with old granulomatous disease. No pl eural effusion. Cardiomegaly is noted. No pericardial effusion. There is a large sliding hiatal herni a. The liver is normal. There are changes of cholecystectomy. The pancreas and right adrenal gland ar e normal. There is a 14 mm mass in left adrenal gland without change, likely an adenoma. There is cor tical thinning of the kidneys. There are cysts in the kidneys measuring up to 2.6 cm on the right. Th ere is diverticulosis of the colon without evidence of diverticulitis. There are changes of right hem icolectomy. There is a supraumbilical ventral hernia containing fat. There is a supraumbilical ventra l hernia containing nonobstructed transverse colon. There are dilated loops of small bowel with proxi mal and distal transition points close to each other and mesenteric edema, consistent with closed loo p small bowel obstruction. There is a small volume of ascites. There are no pathologically enlarged l ymph nodes. There is severe thoracic and lumbar spondylosis. Thoracolumbar dextroscoliosis is noted. IMPRESSION: 1. Closed loop small bowel obstruction. I called this result to Dr. Robertson. 2. Supraumbilical ventral hernia containing fat. 3. Supraumbilical ventral hernia containing nonobstructed transverse colon. 4. Large sliding hiatal hernia. Reviewed, dictated and finalized at location E.
--- NOTE | 2023-09-14 04:52 | ED.ABDPAIN ---
HPI - Abdominal Pain General Chief Complaint: Abdominal Pain <Florentino Robertson MD - Last Filed: 09/14/23 07:55> Stated Complaint: abdominal pain <Florentino Robertson MD - Last Filed: 09/14/23 07:55> Time Seen by Provider: 09/14/23 04:52 <Florentino Robertson MD - Last Filed: 09/14/23 07:55> Source: patient <Florentino Robertson MD - Last Filed: 09/14/23 07:55> Mode of arrival: ambulatory <Florentino Robertson MD - Last Filed: 09/14/23 07:55> Limitations: no limitations <Florentino Robertson MD - Last Filed: 09/14/23 07:55> History of Present Illness HPI narrative: 73-year-old female with history of arthritis, atrial fibrillation on Eliquis hypertension, diabetes mellitus, dyslipidemia, gout, fibromyalgia, status post partial colon resection, hysterectomy cholecystectomy, wall hernia presents to the ER with a 2 hour history of -- acute central abdominal pain which radiates to the back. Pain is continuous without any exacerbating or relieving factors. No fever or chills. No nausea/ vomiting. No diarrhea. -- Diaphoretic <Florentino Robertson MD - Last Filed: 09/14/23 07:55> MD elicited complaint: abdominal pain <Florentino Robertson MD - Last Filed: 09/14/23 07:55> Pertinent past history: other ( Multiple abdominal surgeries) <Florentino Robertson MD - Last Filed: 09/14/23 07:55> Onset (ago): hour(s) ( 2 hours ago) <Florentino Robertson MD - Last Filed: 09/14/23 07:55> Pain Consistency: constant <Florentino Robertson MD - Last Filed: 09/14/23 07:55> Location: suprapubic <Florentino Robertson MD - Last Filed: 09/14/23 07:55> Severity: severe <Florentino Robertson MD - Last Filed: 09/14/23 07:55> Quality: aching <Florentino Robertson MD - Last Filed: 09/14/23 07:55> Radiation: back <Florentino Robertson MD - Last Filed: 09/14/23 07:55> Exacerbating factors: nothing <Florentino Robertson MD - Last Filed: 09/14/23 07:55> Relieving factors: nothing <Florentino Robertson MD - Last Filed: 09/14/23 07:55> Associated symptoms: denies other symptoms <Florentino Robertson MD - Last Filed: 09/14/23 07:55> Related Data Home Medications: Home Medications Medication Instructions Recorded Confirmed sertraline 25 mg tablet 25 mg PO QHS 10/05/19 09/14/23 atorvastatin 10 mg tablet 1 tablet PO DAILY 09/24/21 09/14/23 insulin aspart U-100 100 unit/mL See Rx Instructions .Route .COMPLEX 09/24/21 06/15/23 (3 mL) subcutaneous pen (Novolog FlexPen U-100 Insulin aspart) insulin glargine 100 unit/mL (3 15 unit subcut HS 11/29/21 06/15/23 mL) subcutaneous pen (Basaglar KwikPen U-100 Insulin) apixaban 5 mg tablet (Eliquis) 5 mg PO BID 03/14/23 09/14/23 insulin glargine 100 unit/mL (3 unit subcut 03/14/23 06/15/23 mL) subcutaneous pen (Basaglar KwikPen U-100 Insulin) lisinopril 40 mg tablet 40 mg PO DAILY 03/14/23 09/14/23 trospium 20 mg tablet 20 mg PO BID 03/14/23 06/15/23 allopurinol 100 mg tablet 100 mg PO DAILY PRN 06/15/23 06/15/23 ferrous sulfate 325 mg (65 mg 325 mg PO BID 06/15/23 09/14/23 iron) tablet omeprazole magnesium 20 mg 20 mg PO DAILY 06/15/23 09/14/23 tablet,delayed release <Florentino Robertson MD - Last Filed: 09/14/23 07:55> Allergies/Adverse Reactions: Allergies Allergy/AdvReac Type Severity Reaction Status Date / Time diclofenac Allergy Unknown Unknown Verified 06/15/23 15:27 levofloxacin Allergy Unknown Unknown Verified 06/15/23 15:27 misoprostol Allergy Unknown Unknown Verified 06/15/23 15:27 nortriptyline Allergy Unknown Unknown Verified 06/15/23 15:27 paroxetine Allergy Unknown Unknown Verified 06/15/23 15:27 Sulfa (Sulfonamide Allergy Unknown Unknown Verified 06/15/23 15:27 Antibiotics) <Florentino Robertson MD - Last Filed: 09/14/23 07:55> Review of Systems Review of Systems: All systems reviewed & are unremarkable except as noted in HPI and below <Florentino Robertson MD - Last Filed: 0
--- NOTE | 2023-09-14 04:55 | ECG_ITS ---
Test Date: 2023-09-14 05:02:33 Measurements Intervals [place] Rate: 59 P: 0 IN: 0 QRS: -14 QRSD: 110 T: 52 QT: 416 QTc: 413 Interpretive Statements ATRIAL FIBRILLATION WITH SLOW VENTRICULAR RESPONSE POOR R WAVE PROGRESSION, ANTERIOR LEADS BASELINE ARTIFACT- I, III, AVL ABNORMAL ECG No previous ECG available for comparison Electronically Signed On 09-14-2023 07:53:36 CDT by Dago Randle D.O.
[2023-09-14 05:02] LABS: Basophils Absolute Auto 0.05 K/mm3 (0.00-0.10); Basophils Percent Auto 0.5 % (0.0-1.0); Eosinophils Absolute Auto 0.35 K/mm3 (0.02-0.50); Eosinophils Percent Auto 3.2 % (1.0-6.0); Hematocrit 39.6 % (35.0-42.0); Immature Granulocyte Absolute 0.05 K/mm3 (0.00-0.00); Immature Granulocyte Percent A 0.5 % (0.0-0.0); Lymphocytes Absolute Auto 2.94 K/mm3 (1.10-4.50); Lymphocytes Percent Auto 26.8 % (18.0-42.0); Mean Corpuscular HGB Conc 32.8 g/dL (32-36); Mean Corpuscular Volume 97.5 fL (78.0-102.0); Mean Platelet Volume 12.5 fl (9.2-11.8); Monocytes Absolute Auto 0.91 K/mm3 (0.10-0.90); Monocytes Percent Auto 8.3 % (2.0-11.0); Neutrophils Absolute Auto 6.66 K/mm3 (1.70-7.20); Neutrophils Percent Auto 60.7 % (50.0-70.0); Platelet Count Result 204 K/mm3 (150-420); Red Blood Count 4.06 M/mm3 (4.20-5.40); Red Cell Distribution Width 13.4 % (11.6-14.4)
[2023-09-14] MEDS: LACTATED RINGERS 1,000 ML 999 ML IV CONT (05:04)
[2023-09-14] MEDS: ONDANSETRON INJ 4 MG/2 ML VIAL IV PUSH (05:04)
[2023-09-14] MEDS: HYDROmorphone HCL INJ (*CRX) 2 MG/ML VIAL 0.5 MG IV PUSH ×2 (05:04→05:44)
[2023-09-14 05:12] LABS: Partial Thromboplastin Time 27.9 Sec (23.9-30.70); Prothrombin Time 11.3 Seconds (9.50-12.1)
[2023-09-14 05:16] LABS: Lactic Acid Reflex 1.9 mmol/L (0.4-2.0)
[2023-09-14 05:24] LABS: Alanine Aminotransferase 50 U/L (14-59); Albumin Level 3.1 g/dL (3.4-5.0); Alkaline Phosphatase 151 U/L (46-116); Anion Gap 12 mmol/L (4-12); Aspartate Amino Transferase 37 U/L (15-37); Bilirubin,Total 0.5 mg/dL (0.00-1.00); Blood Urea Nitrogen 27 mg/dL (7-18); Carbon Dioxide 22 mmol/L (21-32); Chloride 103 mmol/L (98-108); Estimated CRCL calculation 42 ml/min; Estimated Glomerular Filt Rate 41; Glucose 190 mg/dL (70-99); Lipase 18 U/L (16-77); Osmolality Calculated 294 mOsm/kg (285-295); Potassium 4.3 mmol/L (3.5-5.1); Sodium 137 mmol/L (136-145); Total Protein 7.6 g/dL (6.4-8.2)
[2023-09-14 05:25] LABS: Appearance Urine Sl Cloudy (Clear); Bilirubin Urine Negative (Negative); Blood Urine Negative (Negative); Color Urine Light Yellow (Yellow); Glucose Urine UA Negative (Negative); Ketones Urine Negative (Negative); Leukocyte Esterase Ur 2+ LEU/UL (Negative); Nitrate Urine Positive (Negative); Protein Urine 1+ (Negative); Urobilinogen Urine 0.2 mg/dL (0.2-1.0)
[2023-09-14 05:46] LABS: Add Urine Microscopic? YES; Bacteria Urine 3+ /hpf; Squamous Epithelial Cell Urine Few /hpf (Few); WBC Clumps Urine Present /hpf
[2023-09-14] MEDS: PROCHLORPERAZINE EDISYLATE 10 MG/2 ML VIAL 5 MG IV PUSH (05:50)
--- NOTE | 2023-09-14 05:55 | PC.NURSE ---
Pt remains extremely diaphoretic, pale in color and lips noted cyanotic, NC O2 at 2L in place, elevated BP, ERP aware, pt being given Dilaudid for pain that will help only a short time, then severe pain w/ nausea returns again. Awaiting CT scan.
--- NOTE | 2023-09-14 06:10 | PC.NURSE ---
Pt is alert, will answer questions this RN to CT w/ pt. Assisted to CT table, pt became very nauseated and turned to side, unable to vomit but pt c/o continuous nausea feeling.
--- NOTE | 2023-09-14 06:35 | PC.NURSE ---
Pt back from CT, monitor shows A-fib, pt continues w/ elevated BP, ERP Dr Robertson informed and aware of pt status. She remains diaphoretic and cyanotic lips noted. Spo2 96% on 2LNC. Awaiting CT report results.
[2023-09-14] MEDS: FUROSEMIDE INJ 20 MG/2 ML VIAL IV PUSH (06:53)
--- NOTE | 2023-09-14 07:00 | PC.NURSE ---
Attempting to pass NG, unsuccessful attempts x2 made by this RN. Pt has noted wheezing bilat. and cough and weak drinking attempt. VSS, Pt on O2 2L NC w/ spo2 at 94%. Pt c/o wekaness while attempting to pass NG tube. Noted Rt nare blocked w/ septal deviation. Lt nare used to attempt to pass NG tube.
--- NOTE | 2023-09-14 07:05 | PC.NURSE ---
Pt wanting transfer to [facility]. report given to Giovanni Amin, attempting to make calls for pt transfer.
--- NOTE | 2023-09-14 07:40 | PC.NURSE ---
multiple attempts gastric tube inserted unsuccessful. pt unable to tolerate.
[2023-09-14] MEDS: metroNIDAZOLE 500 MG/ISO 100ML 500 MG/100 ML BAG 100 MG IVPB (08:04)
--- NOTE | 2023-09-14 08:04 | PC.NURSE ---
0715 report from miguel keating. resumed care. multiple calls made to find bed availability for transfer. 0800 pt and sons x 2 informed of transfer arrangements , voiced agreement.
--- NOTE | 2023-09-14 08:12 | PC.NURSE ---
0815: Drained yañez bag for pt; 1800 mL voided
--- NOTE | 2023-09-16 13:32 | PC.NURSE ---
RN spoke with Bryce harp, patient is in the ICU [id number], culture results faxed to [phone]
== END 2023-09-14 08:41 | disposition short-term general hospital (02) ==
PROVIDERS: Internal Medicine Critical Care Medicine; Emergency Provider Emergency Medicine; PCP Internal Medicine
DX: N28.9 Disorder of kidney and ureter, unspecified (principal); K56.601 Complete intestinal obstruction, unspecified as to cause; E11.65 Type 2 diabetes mellitus with hyperglycemia; I48.91 Unspecified atrial fibrillation; I10 Essential (primary) hypertension; E78.5 Hyperlipidemia, unspecified; Z79.899 Other long term (current) drug therapy; Z79.01 Long term (current) use of anticoagulants
CPT/HCPCS: 36415; 71045; 74177; 80053; 81001; 83605; 83690; 84484; 85025; 85610; 85730; 87077; 87086; 87088; 87186; 93005; 96361; 96365; 96368; 96375; 96376; 99285; J0696; J0780; J1170; J1836; J1940; J2405; J7120; Q9967

== ENCOUNTER 2023-09-28 17:03 | Observation (INO) | payer MEDICARE, SELFPAY ==
[2023-09-28] VITALS (47 sets, daily range): BP systolic 101–174; BP diastolic 55–132; PULSE 89–100; RESP 15–20; TEMP 36.8; O2SAT 90–99
--- NOTE | ~2023-09-28 | XR_ITS ---
XR chest 1V portable Ordering provider: Sebas Christianson MD History: 73 years Female with . weakness . Comparison: September 14, 2023 FINDINGS: MEDIASTINUM: The cardiac silhouette is slightly enlarged. Congestive brie. Possible sliding hiatus he rnia. LUNGS: No infiltrates, effusions or pneumothorax. Bilateral interstitial changes are noted. OTHER: No free air under the diaphragm. Degenerative spine. IMPRESSION: Minimal interstitial changes bilaterally. Pulmonary edema is not excluded. Pneumonitis also is possib le. Reviewed, dictated and finalized at location A. IMPRESSION: Minimal interstitial changes bilaterally. Pulmonary edema is not excluded. Pneu monitis also is possible.
--- NOTE | ~2023-09-28 | CT_ITS ---
CT abdomen pelvis w con Ordering provider: Sebas Christianson MD History: 73 years Female with . s/p partial bowel resect 09/13, now N, profuse alpa . Comparison: September 14, 2023 Technique: CT abdomen and pelvis with IV and without oral contrast. Automated exposure control and it erative reconstruction technique were employed. The dose-length product was 1376.22 mGy-cm. 100 ML Om nipaque 350 was given IV. Findings: VISUALIZED LOWER CHEST: Bilateral pleural effusion with minimal atelectasis more on the right side. L arge Sliding hiatus hernia. Cardiomegaly. UPPER ABDOMINAL ORGANS: Liver: Normal. Gallbladder: Status post cholecystectomy. Spleen: Normal. Stomach/duodenum: Normal. Pancreas: Atrophic. Adrenals: Left adrenal adenoma measuring 1.3 cm. No follow-up advised unless clinical suspicion is pr esent. Kidneys: Bilateral renal cysts with the largest in the right kidney upper pole measuring 2.8 cm. No s tones. PELVIC ORGANS: The bladder is normal. BOWEL AND MESENTERY: Colon: No evidence of diverticulitis. Postoperative changes seen in the right side of the colon. Flui d content is seen in the large bowel suggestive of diarrhea. Enteritis cannot be excluded. No thicken ing of the wall is seen. Appendix is not demonstrated. Small Bowel: Normal. No obstruction. Peritoneum/mesentery: No free air. Minimal pelvic free fluid. No mesenteric lymphadenopathy. RETROPERITONEUM: Mild atheromatous disease of the abdominal aorta. No retroperitoneal lymphadenopat hy. MUSCULOSKELETAL: Superficial soft tissues: Anterior abdominal wall hernia with prominent vessel and fat content. Posto perative changes in the anterior abdominal wall with a small fluid collection measuring 2.3 cm in the anteroposterior dissection.. Otherwise, The superficial soft tissues are normal. Bones: Age appropriate degenerative changes of the spine. Minimal anterolisthesis at the level of L4- L5. IMPRESSION: 1. Bilateral basal atelectasis with bilateral pleural effusion more on the right side. 2. Large sliding hiatus hernia. 3. Fat-containing anterior abdominal wall hernia. Large vessel is seen in the hernia sac. Postoperat dahlia changes are seen in the anterior abdominal wall. Small collection seen in the surgical wound. 4. Postoperative changes in the right side of the colon with fluid content suggestive of diarrhea. 5. Left adrenal adenoma no follow-up is advised unless clinically warranted. 6. Cardiomegaly. Reviewed, dictated and finalized at location A. IMPRESSION: 1. Bilateral basal atelectasis with bilateral pleural effusion more on the rig ht side. 2. Large sliding hiatus hernia. 3. Fat-containing anterior abdominal wall hernia. Large vessel is seen in the hernia sac. Postoperative changes are seen in the anterior abdominal wall. Smal l collection seen in the surgical wound. 4. Postoperative changes in the right side of the colon with fluid content sug gestive of diarrhea. 5. Left adrenal adenoma no follow-up is advised unless clinically warranted. 6. Cardiomegaly.
[2023-09-28] MEDS: LACTATED RINGERS 1,000 ML 999 ML IV CONT (18:48)
[2023-09-28 18:55] LABS: Hematocrit 32.3 % (35.0-42.0); Hemoglobin 10.5 g/dL (11.7-13.8); Mean Corpuscular HGB Conc 32.5 g/dL (32-36); Mean Corpuscular Hemoglobin 32.6 pg (27.0-31.0); Mean Corpuscular Volume 100.3 fL (78.0-102.0); Mean Platelet Volume 11.3 fl (9.2-11.8); Platelet Count Result 289 K/mm3 (150-420); Red Blood Count 3.22 M/mm3 (4.20-5.40); Red Cell Distribution Width 16.2 % (11.6-14.4)
[2023-09-28 18:58] LABS: White Blood Count 20.2 K/mm3 (4.8-10.8)
--- NOTE | 2023-09-28 19:05 | PC.NURSE ---
Report received, care resumed, pt resting and awaiting tests at this time w/ IVF infusing as perorder. Family at bedside. Pt has no c/o at this time.
[2023-09-28 19:10] LABS: Alanine Aminotransferase 34 U/L (14-59); Albumin Level 2.5 g/dL (3.4-5.0); Alkaline Phosphatase 142 U/L (46-116); Anion Gap 6 mmol/L (4-12); Aspartate Amino Transferase 30 U/L (15-37); Bilirubin,Total 0.5 mg/dL (0.00-1.00); Blood Urea Nitrogen 15 mg/dL (7-18); Calcium 9.1 mg/dL (8.5-10.1); Carbon Dioxide 30 mmol/L (21-32); Chloride 104 mmol/L (98-108); Estimated CRCL calculation 46 ml/min; Estimated Glomerular Filt Rate 46; Glucose 159 mg/dL (70-99); Lipase 9 U/L (16-77); Osmolality Calculated 293 mOsm/kg (285-295); Potassium 4.6 mmol/L (3.5-5.1); Sodium 140 mmol/L (136-145); Total Protein 6.3 g/dL (6.4-8.2)
[2023-09-28 19:20] LABS: Band Neutrophils Percent 0 % (0-6); Lymphocytes Percent Manual 3 % (18-44); Monocytes Absolute Manual 1.01 K/mm3 (0.1-0.90); Monocytes Percent Manual 5 % (3-9); Neutrophils Absolute Manual 17.97 K/mm3 (1.7-7.2); Neutrophils Percent Manual 89 % (46-73); Total Cells Counted 100
[2023-09-28 19:21] LABS: Basophils Percent Manual 0 % (0-1); Eosinophils Percent Manual 3 % (1-6); Platelet Estimate Adequate (Adequate)
[2023-09-28 19:28] LABS: Lactic Acid Reflex 1.1 mmol/L (0.4-2.0)
--- NOTE | 2023-09-28 20:15 | PC.NURSE ---
Pt had large soft stool, BM on bedpan and collected specimen by electrical tester.
[2023-09-28 20:40] LABS: Occult Blood Positive (Negative)
[2023-09-28 20:46] LABS: Appearance Urine Clear (Clear); Bilirubin Urine Negative (Negative); Blood Urine Negative (Negative); Color Urine Light Yellow (Yellow); Glucose Urine UA Negative (Negative); Ketones Urine Negative (Negative); Leukocyte Esterase Ur 2+ LEU/UL (Negative); Nitrate Urine Negative (Negative); Protein Urine Negative (Negative); Urobilinogen Urine 0.2 mg/dL (0.2-1.0)
[2023-09-28 20:52] LABS: Add Urine Microscopic? YES; Bacteria Urine Trace /hpf; RBC Urine 0-2 /hpf (0-2); Squamous Epithelial Cell Urine Few /hpf (Few); WBC Urine 16-20 /hpf (0-3)
[2023-09-28 21:23] LABS: Toxigenic C. Diff NEGATIVE (NEGATIVE)
--- NOTE | 2023-09-28 22:18 | PC.NURSE ---
Pt incontinent of urine and urinated in bed, complete bed changed and pt placed in diaper.
[2023-09-28] MEDS: metroNIDAZOLE 500 MG/ISO 100ML 500 MG/100 ML BAG 100 MG IVPB (23:26)
[2023-09-28] MEDS: LACTATED RINGERS 1,000 ML 300 ML IV CONT (23:26)
--- NOTE | 2023-09-28 23:31 | PC.NURSE ---
ERP discussed POC for admit here after speaking w/ Katie. Pt has no changes in her H&H when d/c from [facility] after her surgery. Pt is currenty A&O x3 and eating clear liquids at this time. She will be placed in 23 hr obs bed, VSS.
--- NOTE | 2023-09-28 23:37 | ED.GENADULT ---
HPI - General Adult General Chief complaint: Abdominal Pain Stated complaint: abd pain & diarrhea History of Present Illness HPI narrative: 73-year-old white female with history of diabetes, hypertension, gout, CHF, AFib, previous partial bowel resection a number of years ago, presented to this hospital in September with abdominal pain nausea and vomiting, was all obstruction transferred to [place] she was on, had a partial small-bowel obstruction, and was subsequently discharged to local custodial. She reports she felt like she lost a lot strength during this stretch, has been undergoing rehab, and then today developed perfuse diarrhea with some nausea but no vomiting. As the day went on she felt weaker and we got lightheaded when she would try to stand up, and was sent in by custodial staff for evaluation. she denies fever or chills denies cough, shortness of breath, chest pain, vomiting, denies dysuria urgency or frequency. Related Data Home Medications Medication Instructions Recorded Confirmed insulin aspart U-100 100 unit/mL See Rx Instructions .Route .COMPLEX 09/24/21 09/28/23 (3 mL) subcutaneous pen (Novolog FlexPen U-100 Insulin aspart) trospium 20 mg tablet 20 mg PO BID 03/14/23 09/28/23 allopurinol 100 mg tablet 100 mg PO DAILY PRN Pain 06/15/23 09/28/23 Acetaminophen Extra Strength 500 mg PO Q6H PRN Pain 09/28/23 09/28/23 dabigatran etexilate 150 mg PO BID 09/28/23 09/28/23 loperamide 2 mg PO Q6H PRN Diarrhea 09/28/23 09/28/23 metoprolol succinate 25 mg PO DAILY 09/28/23 09/28/23 omeprazole 20 mg PO EVERY OTHER DAY 09/28/23 09/28/23 oxycodone 5 mg PO Q4H PRN Pain 09/28/23 09/28/23 Allergies Allergy/AdvReac Type Severity Reaction Status Date / Time diclofenac Allergy Unknown Unknown Verified 09/28/23 17:20 levofloxacin Allergy Unknown Unknown Verified 09/28/23 17:20 misoprostol Allergy Unknown Unknown Verified 09/28/23 17:20 nortriptyline Allergy Unknown Unknown Verified 09/28/23 17:20 paroxetine Allergy Unknown Unknown Verified 09/28/23 17:20 Sulfa (Sulfonamide Allergy Unknown Unknown Verified 09/28/23 17:20 Antibiotics) Review of Systems Review of Systems: All systems reviewed & are unremarkable except as noted in HPI and below PMFSH Past Medical History Medical History Acquired valgus deformity knee Arthritis BMI greater than 40 Claustrophobia Depression Diabetes mellitus Fibromyalgia GERD (gastroesophageal reflux disease) HTN (hypertension) Right knee DJD Surgical History Surgical History H/O dilation and curettage H/O total hysterectomy with bilateral salpingo-oophorectomy (BSO) H/O tubal ligation History of appendectomy History of bladder surgery History of colon surgery History of endometrial ablation History of knee replacement Hx of cholecystectomy Family History Family History Other Diabetes mellitus Family history of arthritis Family history of malignant neoplasm Hypertension Lung cancer Social History Social History Years smoked: 24 Smoking status: Never smoker Smoking end date: 03/13/00 Alcohol intake: current Do You Feel Safe in your Home?: Yes Lack of Transportation: No Lack of Food: Never True Current Housing: I Have Housing Concerned About Future Housing: No Difficulty Paying Gas/Electric Bills: No Difficulty Paying for Meds: No Currently Unemployed: No Education: Decline to Answer Difficulty w/ Childcare or Family Care: No Living arrangements: with family Occupation/Education: retired Gender identity (if verbalized by the patient): Female Exam Const: General: no acute distress and alert Nutritional Appearance: obese Orientation/consciousness: patient oriented x3 Limitations: no limitation
[2023-09-28] MEDS: VANCOMYCIN HCL 125 MG ORAL CAPSULE PO (23:48)
[2023-09-28] MEDS: ACETAMINOPHEN 500 MG TABLET 1000 MG PO (23:51)
[2023-09-29] VITALS (10 sets, daily range): BP systolic 117–158; BP diastolic 57–97; PULSE 78–96; RESP 18–20; TEMP 35.8–36.5; O2SAT 92–94; BMI 39.3
[2023-09-29] MEDS: LACTATED RINGERS 1,000 ML 100 ML IV CONT ×2 (00:25→10:11)
--- NOTE | 2023-09-29 00:31 | PC.NURSE ---
Pt resting w/ lights dimmed, call wong in reach, call placed to floor, spoke w/ hand loom weaver Holly and pt will go to Rm [id number]
[2023-09-29] MEDS: VANCOMYCIN HCL 125 MG ORAL CAPSULE PO (06:15)
[2023-09-29 07:28] LABS: Hematocrit 30.8 % (35.0-42.0); Hemoglobin 9.9 g/dL (11.7-13.8); Mean Corpuscular HGB Conc 32.1 g/dL (32-36); Mean Corpuscular Hemoglobin 32.1 pg (27.0-31.0); Mean Platelet Volume 11.2 fl (9.2-11.8); Platelet Count Result 271 K/mm3 (150-420); Red Blood Count 3.08 M/mm3 (4.20-5.40); White Blood Count 11.3 K/mm3 (4.8-10.8)
[2023-09-29 07:36] LABS: Anion Gap 8 mmol/L (4-12); Blood Urea Nitrogen 12 mg/dL (7-18); Calcium 8.8 mg/dL (8.5-10.1); Carbon Dioxide 28 mmol/L (21-32); Chloride 104 mmol/L (98-108); Estimated CRCL calculation 46 ml/min; Estimated Glomerular Filt Rate 46; Glucose 121 mg/dL (70-99); Osmolality Calculated 290 mOsm/kg (285-295); Sodium 140 mmol/L (136-145)
[2023-09-29 08:25] LABS: Magnesium 1.3 mg/dL (1.8-2.4)
[2023-09-29 09:19] LABS: SARS-CoV-2 RNA PCR Negative (Negative)
[2023-09-29 09:20] LABS: Influenza A QL RT-PCR Negative (Negative); Influenza B QL RT-PCR Negative (Negative); RSV RNA, RT-PCR Negative (Negative)
[2023-09-29] MEDS: DABIGATRAN ETEXILATE 75 MG CAPSULE 150 MG PO ×2 (10:03→20:15)
[2023-09-29] MEDS: PANTOPRAZOLE 40 MG TABLET PO ×2 (10:04→16:51)
[2023-09-29] MEDS: METOPROLOL SUCCINATE EXT REL 25 MG TABCR PO (10:04)
[2023-09-29] MEDS: ACIDOPHILUS/BULGARICUS CHEWABLE TABLET 1 TABLET PO ×3 (10:04→20:16)
--- NOTE | 2023-09-29 10:21 | PM.IMHP ---
H&P: HPI History of Present Illness Date/Time: 09/29/23 10:21 Chief Complaint: Diarrhea Narrative: Patient is a pleasant 73-year-old female who presented to the emergency department with complaints of worsening diarrhea that had gotten worse over the last 2 days. Patient has a history of diabetes, hypertension, gout, CHF, atrial fibrillation, and previous large bowel resection as well as recently discharged following a small bowel resection due to SBO. Patient arrived from rehab center due to uncontrolled diarrhea. Patient denied any chest pain, shortness breath, nausea, vomiting, abdominal pain dizziness, fevers or chills however did report feeling weaker and lightheaded. Initial findings in the emergency department showed a white count of 20, creatinine of 1.16, in UA leukocyte positive with trace of bacteriuria otherwise labs unremarkable. CT abdomen showed large sliding hiatus hernia, postoperative changes with fluid content likely diarrhea, chest x-ray showed minimal interstitial changes mild pulmonary edema possible pneumonitis. The emergency department initially started patient on p.o. vancomycin and Flagyl due to recent hospital stay and some concern for C diff however C diff culture was negative discontinued p.o. vancomycin and Flagyl. Patient did have recent UTI with Klebsiella 09/14/2023 will need to follow UA culture and initiate antibiotic therapy if needed. Patient reported overnight improvement to diarrhea and tolerating oral intake added probiotic and WBC down to 11.5. Review of Systems Review of Systems: All systems reviewed & are unremarkable except as noted in HPI and below PMFSH Past Medical History Medical History Acquired valgus deformity knee Arthritis BMI greater than 40 Claustrophobia Complete tear of left rotator cuff CVA (cerebral vascular accident) Depression Diabetes mellitus Fibromyalgia GERD (gastroesophageal reflux disease) HTN (hypertension) Primary osteoarthritis of left shoulder Primary osteoarthritis of right knee Right knee DJD Sciatica of right side Trochanteric bursitis of right hip Surgical History Surgical History (Updated 09/29/23 @ 10:32 by Clarisse Luu APRN) H/O dilation and curettage H/O total hysterectomy with bilateral salpingo-oophorectomy (BSO) H/O tubal ligation History of appendectomy History of bladder surgery History of bowel resection History of colon surgery History of endometrial ablation History of knee replacement Hx of cholecystectomy S/P small bowel resection Family History Family History Other Diabetes mellitus Family history of arthritis Family history of malignant neoplasm Hypertension Lung cancer Social History Social History Years smoked: 24 Smoking status: Never smoker Smoking end date: 03/13/00 Alcohol intake: unknown Substance use: never Substance use type: does not use Do You Feel Safe in your Home?: Yes Lack of Transportation: No Lack of Food: Never True Current Housing: I Have Housing Concerned About Future Housing: No Difficulty Paying Gas/Electric Bills: No Difficulty Paying for Meds: No Currently Unemployed: No Education: High School Diploma/GED Difficulty w/ Childcare or Family Care: No Living arrangements: with family Occupation/Education: retired Gender identity (if verbalized by the patient): Female Spiritual care concerns: No Meds Home Medications and Allergies Home Medications Medication Instructions Recorded Confirmed Type insulin aspart U-100 100 unit/mL See Rx Instructions .Route .COMPLEX 09/24/21 09/28/23 History (3 mL) subcutaneous pen (Novolog FlexPen U-100 Insulin aspart) trospium 20 mg tablet 20 mg PO BID 03/14/23 09/28/23 History allopurinol 100 mg tablet 10
[2023-09-29] MEDS: MAGNESIUM SULF 2 GM/WATER 50ML 2 GM/50 ML BAG IVPB (10:58)
[2023-09-29 12:11] LABS: Glucose Point of Care 154 mg/dl (65-105)
[2023-09-29 16:31] LABS: Glucose Point of Care 146 mg/dl (65-105)
[2023-09-29 20:21] LABS: Glucose Point of Care 140 mg/dl (65-105)
[2023-09-30] VITALS: BP 118/70; PULSE 89; RESP 17; TEMP 36.4; O2SAT 97
[2023-09-30 05:41] LABS: Hematocrit 29.4 % (35.0-42.0); Hemoglobin 9.5 g/dL (11.7-13.8); Mean Corpuscular HGB Conc 32.3 g/dL (32-36); Mean Corpuscular Hemoglobin 32.4 pg (27.0-31.0); Mean Corpuscular Volume 100.3 fL (78.0-102.0); Mean Platelet Volume 11.8 fl (9.2-11.8); Platelet Count Result 275 K/mm3 (150-420); Red Blood Count 2.93 M/mm3 (4.20-5.40); Red Cell Distribution Width 16.4 % (11.6-14.4); White Blood Count 11.4 K/mm3 (4.8-10.8)
[2023-09-30 06:01] LABS: Alanine Aminotransferase 29 U/L (14-59); Albumin Level 2.3 g/dL (3.4-5.0); Alkaline Phosphatase 126 U/L (46-116); Anion Gap 5 mmol/L (4-12); Aspartate Amino Transferase 25 U/L (15-37); Bilirubin,Total 0.5 mg/dL (0.00-1.00); Blood Urea Nitrogen 12 mg/dL (7-18); Calcium 8.8 mg/dL (8.5-10.1); Carbon Dioxide 29 mmol/L (21-32); Chloride 104 mmol/L (98-108); Estimated CRCL calculation 43 ml/min; Estimated Glomerular Filt Rate 43; Glucose 139 mg/dL (70-99); Magnesium 1.8 mg/dL (1.8-2.4); Osmolality Calculated 287 mOsm/kg (285-295); Potassium 4.5 mmol/L (3.5-5.1); Sodium 138 mmol/L (136-145)
[2023-09-30 08:00] VITALS: BP 165/110; PULSE 107; RESP 20; TEMP 36; O2SAT 95
[2023-09-30] MEDS: ACIDOPHILUS/BULGARICUS CHEWABLE TABLET 1 TABLET PO (09:26)
[2023-09-30] MEDS: DABIGATRAN ETEXILATE 75 MG CAPSULE 150 MG PO (09:26)
[2023-09-30 09:27] VITALS: PULSE 107
[2023-09-30] MEDS: PANTOPRAZOLE 40 MG TABLET PO (09:27)
[2023-09-30] MEDS: METOPROLOL SUCCINATE EXT REL 25 MG TABCR PO (09:27)
--- NOTE | 2023-09-30 10:27 | PM.DS ---
DS: Admitting Diagnosis Discharge Date 09/30/23 Admitting Diagnosis Diarrhea, Electrolyte imbalance DS: Summary Hospital Course Reason for hospitalization: Electrolye imbalance , acute kidney injury , Diarrhea Hospital Course: Patient is a pleasant 73-year-old female who presented to the emergency department with complaints of worsening diarrhea that had gotten worse over the last 2 days. Patient has a history of diabetes, hypertension, gout, CHF, atrial fibrillation, and previous large bowel resection as well as recently discharged following a small bowel resection due to SBO. Patient arrived from rehab center due to uncontrolled diarrhea. While here we have treated patient with IV fluids, had her see therapy addressed her electrolyte imbalance. Patient did not have diarrhea while here we replaced Magnesium in which is now normal. Patient will go back to the snf in which she will continue with PT/OT evaluate and treat. Time Spent with Patient Time attestation: Total time spent providing and/or coordinating discharge services: Exam Narrative: Physical Exam: GENERAL: Pleasant obese female Alert and oriented x 3. No acute distress. EYES: EOMI. No scleral icterus. PERRLA. HEENT: Moist mucous membranes. LUNGS: Clear to auscultation bilaterally. No accessory muscle use. CARDIOVASCULAR: Regular rate and rhythm. No murmur. No JVD. S1-S2 ABDOMEN: Soft, non tenderness and non-distended. No palpable masses. EXTREMITIES: No edema. Non-tender SKIN: No rashes or lesions. Skin warm, dry. NEUROLOGIC: No focal neurological deficits. CN II-XII grossly intact PSYCHIATRIC: Appropriate mood and affect. Good judgement and insight. No visual or auditory hallucinations. No suicidal or homicidal ideation. Const: General: no acute distress, alert and obese Nutritional Appearance: obese Orientation/consciousness: patient oriented x3 Limitations: no limitations Other: Skin appears consistent with previous smoking history, also consistent with protein calorie malnutrition, patient appears obese but not well nourished, she is awake, alert, well oriented, articulate, good conversation was HENMT: Head: normal to inspection Ears: external ears normal Face/Nose/Sinus: Normal external nose present and normal facial exam Face and sinus: normal facial exam Mouth: Yes dry mucous membranes Teeth and gingiva: dentition normal Throat: posterior oropharynx normal Eyes: Conjunctivae: conjunctivae normal Pupils: Equal, round and reactive pupils present EOM: EOMs intact bilaterally Neck: Neck: normal visual inspection and no meningeal signs Resp: Effort & Inspection: normal respiratory effort Auscultation: clear to auscultation bilaterally Cardio: Rate: regular rate Rhythm: regular rhythm GI: Auscultation: normal bowel sounds Other: No mass, no organomegaly, no percussion or rebound tenderness : General: Yes bladder normal to palpation Bimanual exam- vagina & uterus: bladder normal to palpation Skin: General skin exam: normal color Rashes: no rashes Wounds: no wounds Other: as noted above Neuro: General: patient oriented x3, moves all extremities, no meningeal signs, no focal motor deficits and CN's II-XI intact bilaterally Cranial nerves: Yes Equal, round and reactive pupils present and Yes Nystagmus not present Speech: normal speech Gait exam (Neuro): Normal gait present Extrem: General: normal to inspection, no clubbing, cyanosis or edema and edema Other: trace to 1+ pitting edema Psych: Mental Status: mental status grossly normal Attitude: cooperative DS: Data Data Completed and Pending Labs on day of discharge: Labs from last 24 hours 09/30/23 09/29/23 09/29/23 05:08 20:15 16:30 WBC 11.4 H RBC 2.93 L Hgb 9.5 L Hct 29.4 L MCV 100.3 MCH 32.4 H MCHC 32.3 RDW 16.4 H Plt Count 275 MPV 11.8 Sodium 138 Potassium 4.5 Chloride 104 Carb
--- NOTE | 2023-09-30 10:58 | PC.NURSE ---
Prescriptions electronically transmitted to [facility]. Printed scripts were also included in packet for the care home.
--- NOTE | 2023-09-30 11:35 | PC.NURSE ---
Staff from SNF brought wheelchair for patient to return. Assisted patient to dress, transferred into wheelchair per diane dasilva and two staff assist. Paperwork sent with patient back to [facility]
[2023-10-02 12:44] LABS: Lactoferrin, Stool COMMENT:
--- NOTE | 2023-10-09 09:34 | PC.NURSE ---
[facility], no questions or concerns
== END 2023-09-30 11:35 ==
LOC: CHSED 09-29 00:08 → CHS2ND 09-29 00:44
PROVIDERS: Nurse Practitioner Family; Admitting Provider Internal Medicine; Emergency Provider Emergency Medicine; PCP Internal Medicine; Visit Provider Nurse Practitioner Family
DX: R19.7 Diarrhea, unspecified (principal); D72.829 Elevated white blood cell count, unspecified; E87.8 Other disorders of electrolyte and fluid balance, not elsewhere classified; E86.0 Dehydration; I11.0 Hypertensive heart disease with heart failure; I50.9 Heart failure, unspecified; D64.9 Anemia, unspecified; E11.9 Type 2 diabetes mellitus without complications; M10.9 Gout, unspecified; I48.91 Unspecified atrial fibrillation; Z90.49 Acquired absence of other specified parts of digestive tract; M79.7 Fibromyalgia; G47.33 Obstructive sleep apnea (adult) (pediatric); K21.9 Gastro-esophageal reflux disease without esophagitis; Z20.822 Contact with and (suspected) exposure to COVID-19; F32.A Depression, unspecified; Z79.4 Long term (current) use of insulin; Z79.891 Long term (current) use of opiate analgesic; E66.9 Obesity, unspecified; Z68.39 Body mass index [BMI] 39.0-39.9, adult
CPT/HCPCS: 36415; 71045; 74177; 80048; 80053; 81001; 82272; 82948; 83605; 83630; 83690; 83735; 85025; 85027; 87040; 87045; 87086; 87427; 87449; 87493; 87637; 89055; 96361; 96365; 97161; 97166; 97530; 99285; A9270; G0378; J1836; J3475; J7120; Q9967

== ENCOUNTER 2023-11-23 20:17 | Emergency (ER) | payer MEDICARE, SELFPAY ==
[2023-11-23 20:24] VITALS: BP 179/111; PULSE 87; RESP 18; TEMP 36.3; O2SAT 98
--- NOTE | 2023-11-23 20:25 | PC.NURSE ---
Dr Navarrete at the bedside
--- NOTE | 2023-11-23 20:32 | ED.DENTAL ---
HPI - Dental/Oral General Chief complaint: Dental/Oral Stated complaint: Mouth Problem Source: patient and family Mode of arrival: wheelchair Limitations: no limitations History of Present Illness HPI Narrative: This is a 73-year-old longterm patient that presents with concerns swallowed a C woodall dental adhesive, the patient has sensation that others object in her airway but patient is breathing easy with O2 sats 100% there is no audible wheezing no stridor no fever chills no shortness of breath no nausea or vomiting no abdominal pain. Onset (ago): day(s) Duration: constant Severity: mild Related Data Home Medications Medication Instructions Recorded Confirmed insulin aspart U-100 100 unit/mL See Rx Instructions .Route .COMPLEX 09/24/21 09/28/23 (3 mL) subcutaneous pen (Novolog FlexPen U-100 Insulin aspart) trospium 20 mg tablet 20 mg PO BID 03/14/23 09/28/23 allopurinol 100 mg tablet 100 mg PO DAILY 06/15/23 09/28/23 Acetaminophen Extra Strength 500 mg PO Q6H PRN Pain 09/28/23 09/28/23 dabigatran etexilate 150 mg PO BID 09/28/23 09/28/23 metoprolol succinate 25 mg PO DAILY 09/28/23 09/28/23 omeprazole 20 mg PO EVERY OTHER DAY 09/28/23 09/28/23 oxycodone 5 mg PO Q4H PRN Pain 09/28/23 09/28/23 Allergies Allergy/AdvReac Type Severity Reaction Status Date / Time prednisone Allergy Mild unknown Verified 11/08/23 13:29 diclofenac Allergy Unknown Unknown Verified 11/08/23 13:29 levofloxacin Allergy Unknown Unknown Verified 11/08/23 13:29 misoprostol Allergy Unknown Unknown Verified 11/08/23 13:29 nortriptyline Allergy Unknown Unknown Verified 11/08/23 13:29 paroxetine Allergy Unknown Unknown Verified 11/08/23 13:29 Sulfa (Sulfonamide Allergy Unknown Unknown Verified 11/08/23 13:29 Antibiotics) Review of Systems Review of Systems: All systems reviewed & are unremarkable except as noted in HPI and below PMFSH Past Medical History Medical History Acquired valgus deformity knee Arthritis BMI greater than 40 Claustrophobia Complete tear of left rotator cuff CVA (cerebral vascular accident) Depression Diabetes mellitus Fibromyalgia GERD (gastroesophageal reflux disease) HTN (hypertension) Primary osteoarthritis of left shoulder Primary osteoarthritis of right knee Right knee DJD Sciatica of right side Trochanteric bursitis of right hip Surgical History Surgical History H/O dilation and curettage H/O total hysterectomy with bilateral salpingo-oophorectomy (BSO) H/O tubal ligation History of appendectomy History of bladder surgery History of bowel resection History of colon surgery History of endometrial ablation History of knee replacement Hx of cholecystectomy S/P small bowel resection Family History Family History Other Diabetes mellitus Family history of arthritis Family history of malignant neoplasm Hypertension Lung cancer Social History Social History Years smoked: 24 Smoking status: Never smoker Smoking end date: 03/13/00 Alcohol intake: unknown Substance use: never Substance use type: does not use Do You Feel Safe in your Home?: Yes Lack of Transportation: No Lack of Food: Never True Current Housing: I Have Housing Concerned About Future Housing: No Difficulty Paying Gas/Electric Bills: No Difficulty Paying for Meds: No Currently Unemployed: No Education: High School Diploma/GED Difficulty w/ Childcare or Family Care: No Living arrangements: with family Occupation/Education: retired Gender identity (if verbalized by the patient): Female Spiritual care concerns: No Exam Const: General: healthy appearing, no acute distress and alert Nutritional Appearance: well nourished Orientation/consciousness: patient oriente
--- NOTE | 2023-11-23 20:42 | PC.NURSE ---
patient helped back into wheel chair by ailyn Gauthier
[2023-11-23 20:44] VITALS: BP 142/83
== END 2023-11-23 20:44 | disposition home or self-care (01) ==
PROVIDERS: Emergency Provider Emergency Medicine; PCP Internal Medicine
DX: T18.9XXA Foreign body of alimentary tract, part unspecified, initial encounter (principal); E11.9 Type 2 diabetes mellitus without complications; I10 Essential (primary) hypertension; Z86.73 Personal history of transient ischemic attack (TIA), and cerebral infarction without residual deficits; Z87.891 Personal history of nicotine dependence; W44.8XXA Other foreign body entering into or through a natural orifice, initial encounter
CPT/HCPCS: 99281

== ENCOUNTER 2024-01-15 14:27 | Outpatient (RCR) | payer MEDICARE, SELFPAY ==
--- NOTE | 2024-01-15 15:38 | PTOPEVAL1 ---
Assessment and note entered by Azar Garcia Evaluation Information Assessment Status Evaluation ICD-10 Condition Codes (PT) Difficulty Walking R26.2,R26.9,Weakness R53.1 Onset 09/15/23 Subjective Information Pt. reports she had surgery on her small intestine in September. She report she was hospitalized and then sent to rehab. She reports she returned home on 12/13/23. She reports that she has been having 2 women help about 3 hours a day 4 days a week. She states that she is doing short distance walking in the home and able to get herself out of bed. She reports that she spends the vast majority of the day sitting in the chair and does not walk a significant distance daily. Her son does exercise with her sometimes 2 nights a week, but he is limited due to work. She reports that prior to September she was still driving and doing her own community activities. She states that she is suppose to have a right knee replacement and is hopeful to improve her strength and ability to walk. Reported Pain Level Pain Score 0: Self Report Assessment PT Clinical Summary Pt. is a 73 year old female who enters the clinic with weakness and impaired function due to recent hospitalization. She presents with high fall risk , impaired balance, impaired gait, impaired l.e. strength and functional decline. Continued skilled PT is indicated in order to improve these areas to allow for improved independence with all IADL performance. Plan of Care Interventions Gait Training,Neuro Re-education,Patient/Caregiver Educati,Therapeutic Activities,Therapeutic Exercise PT Services Indicated Yes Treatment Frequency and 3x/week x 12 visits Duration These treatments will address the objective and functional deficits as defined above. The patient will be advanced safely and appropriately in order for the patient to progress towards his/her prior level of function. Additional exercises will be introduced and as well as a comprehensive home exercise program upon discharge, if needed, ?to ensure carryover of functional gains achieved in the clinic. This treatment plan has been reviewed and agreement upon by the patient.
--- NOTE | 2024-01-15 15:38 | OPREHPOC ---
Outpatient Therapy Plan of Care This is a Multidisciplinary Plan of Care that may contain components documented by all disciplines (PT, OT, and ST.) PT Problem 1 PT Problem #1 Knowledge Deficit PT Goal 1 Goal / Goal Update Pt. will be independent with a HEP addressing strength and endurance Target Visit 2 PT Problem 2 PT Problem #2 Impaired Balance PT Goal 1 Goal / Goal Update Pt. will improve her tinetti score to 19 or greater indicating moderate fall risk. Target Visit 12 PT Problem 3 PT Problem #3 Impaired Endurance PT Goal 1 Goal / Goal Update Pt. will be able to complete the 6 minute walk test without rest periods over distance of 500' with ww indicating improved endurance and gait efficiency. Target Visit 12 PT Problem 4 PT Problem #4 Impaired Strength PT Goal 1 Goal / Goal Update Pt. will be able to stand for duration of 10 minutes without rest assisting with improved IADL performance Pt. will present with 4/5 gross l.e. strength. Target Visit 12
--- NOTE | 2024-02-02 13:00 | PCPTNOTE ---
Patient called & cancelled scheduled appointment this date due to [not feeling well.]
== END 2024-04-14 23:59 | disposition home or self-care (01) ==
LOC: CHSPT 14:27
PROVIDERS: PCP Internal Medicine; Visit Provider Internal Medicine
DX: M17.11 Unilateral primary osteoarthritis, right knee (principal); R26.81 Unsteadiness on feet
CPT/HCPCS: 97014; 97110; 97161; 97530; G0283

== ENCOUNTER 2024-08-23 19:18 | Emergency (ER) | payer MEDICARE, SELFPAY ==
--- NOTE | ~2024-08-23 | CT_ITS ---
CT brain wo con Ordering provider: Florentino Robertson MD History: 74 years Female with . head injury status post fall. HIT POSTERIOR SKULL. . Comparison: March 14, 2023 Technique: CT of the head without contrast. Radiation reduction technique utilized. The dose-length product was 605.33 mGy-cm. FINDINGS: BRAIN PARENCHYMA AND CSF SPACES: Mild leukoaraiosis and diffuse cortical atrophy. Mild atheromatous d isease. The density seen in the occipital areas most likely beam hardening artifact. No midline shift , mass effect or hemorrhage. The brain parenchyma and CSF spaces are otherwise normal. VISUALIZED PARANASAL SINUSES: Well aerated. MASTOIDS: Well aerated. BONES: The bones appear intact. SOFT TISSUES: Visualized nasopharynx is normal. Superficial soft tissues are normal. IMPRESSION: No acute intracranial findings. The density seen in the occipital areas is most likely beam hardening artifact. Reviewed, dictated and finalized at location A.
--- NOTE | ~2024-08-23 | CT_ITS ---
CT cervical spine wo con Ordering provider: Florentino Robertson MD History: . FALL. NECK PAIN. . Comparison: March 14, 2023 Technique: CT of the cervical spine was performed without contrast. Sagittal and coronal reformatted images were also obtained and reviewed. Automated exposure control and iterative reconstruction carmen hnique were employed. The dose-length product was 498.47 mGy-cm. FINDINGS: VERTEBRAE: Anterolisthesis at the level of C5-C6. Anterolisthesis at the level of C6-C7. Otherwise, N o subluxation or acute fracture. The occipital condyles are intact. Dextroscoliosis. DISC SPACES: Narrowing of the disc C5-C6 and C6-C7. Multilevel facet joint disease. Multilevel uncove rtebral joint osteoarthritic changes. Narrowing of the foramina at the level of C5-C6 and C6-C7. PARASPINOUS SOFT TISSUES: Normal. IMPRESSION: No acute osseous abnormality cervical spine. Multilevel degenerative disc disease Reviewed, dictated and finalized at location A.
--- NOTE | ~2024-08-23 | XR_ITS ---
SINGLE AP VIEW PELVIS Ordering provider: Florentino Robertson MD History: . accidental fall. NO PAIN. . Comparison: None. FINDINGS: BONES: No acute fracture or dislocation. Possible lucency in the right greater tuberosity. If still s uspicious CT is advised. HIP JOINT SPACES: Normal. SACROILIAC JOINT SPACES/LUMBAR SPINE: The sacroiliac joint spaces are normal. Mild degenerative petty es of the visualized lower lumbar spine. PUBIC SYMPHYSIS: Pubic symphysitis. SOFT TISSUES: Normal. IMPRESSION: No definite acute osseous abnormality pelvis. Possible lucency in the right greater trochanter. Reviewed, dictated and finalized at location A.
--- NOTE | ~2024-08-23 | XR_ITS ---
XR chest 1V portable Ordering provider: Florentino Robertson MD History: 74 years Female with . accidental fall . Comparison: September 28, 2023 FINDINGS: MEDIASTINUM: The cardiac silhouette is slightly enlarged. Sliding hiatus hernia. LUNGS: No infiltrates, effusions or pneumothorax. Prominent bronchovascular markings in the lower lob es. OTHER: No free air under the diaphragm. Bilateral shoulder osteoarthritic changes. IMPRESSION: No acute cardiopulmonary pathology. Sliding hiatus hernia. Reviewed, dictated and finalized at location A.
--- OUTSIDE RECORDS SUMMARY | 2024-08-23 19:20 | XMS_ITS | Data Portability ---
Author Organization [place] [facility], Main Office Address [address] [place] [address] Care Team Providers Care Manager Meeting Name Role Phone MARY ANNE FINNEGAN Primary Care Provider MARY ANNE FINNEGAN Referring Provider Assessment Encounter Date Assessment Date Assessment LastModified by Organization Details LastModified Time 01/13/2023 01/13/2023 HPI: 72-year-old female came in today for evaluation of her right knee. She has been having pain in the knee for approximately 2 years. She was told by several doctors that she needs knee replacement but she has to lose weight. She has been working on weight loss and has lost about 40 lb at this point. She has had cortisone injections in the knees in the past but have only offered her minimal help. Patient has been taking [id number]-wsh-lhhnice aspirin. She was recently diagnosed with a TIA approximately 2 weeks ago and was started on Eliquis. She had extensive workup in [place]. She is not sure about results. I strongly advised her that since she is on the Eliquis she should not be taking aspirin products or ibuprofen products. I did recommend she talk with her primary care doctor about the results of all this testing and whether not she needs to be on Eliquis long-term. She is going to do that. Physical exam: 72-year-old female she is walking with a 4 wheeled walker. She is 5 ft tall and 234 lb her BMI is 45.7. She has an obvious valgus deformity to the right knee. Mild effusion. There is an endpoint with valgus stress. There is significant laxity of the MCL but does have an endpoint. She does not correct fully with varus stress. Mild swelling in both lower extremities. Impression: 72-year-old female who has severe lateral compartment osteoarthritis with widening of the medial compartment. I did come into her on the weight loss. She has lost 40 lb so for however her BMI is still 45.7. She is going to need to be under 200 lb before her BMI is going to be in range to offer surgery. Unfortunately she is not able take anti-inflammatori es while she is on the Eliquis and is going to discuss this with her primary care doctor. I did offer another cortisone injection today but she declined but will keep this in mind if she feels she wants to try in the future. This point we will see her back as needed. 30 minutes was spent treatment patient more than half of this in [id number] conversation [email or web address] Not available 01/13/2023 16:34:22 Plan of Treatment Reminders Order Date Submit Date Provider Last Modified By Organization Details Last Modified Time Details Appointments None record ed. Lab None record ed. Referral None record ed. Procedures None record ed. Surgeries None record ed. Imaging XR, knee 023 01/14/20 23 [email or web address] [facility] [place], [address], [place], [address], 3 10:00:38 Medication Orders None record ed. Patient TargetsNo targets recorded. Patient InstructionsNo instructions recorded. Reason for Referral None Reported. Results Created Date Observation Date Name Description Value Unit Range Abnormal Flag Note LastModifiedBy Organization Detail LastModifiedTime 12/31/19 23 11/29/2021 XR, knee, 3 view No observ ation record ed. [email or web address] Not Available 12/12 12:11:04 01/14/20 23 XR, knee No observ ation record ed. [email or web address] [facility] [place] [address], [place], [address], 01/13/2023 16:09:34 Result Notes None recorded. Problems Name Problem SNOMED Code Status Onset Date Resolution Date Notes Provider Name and Address Organization Details Recorded Time Spinal stenosis of lumbar region 74161643 Active Not Available [facility] 3 13:36:06 Osteoarthr itis of knee 385217625 Active Not Available [facility] 3 13:36:06 Pain of right knee joint 5827652846382 00 Active 2022 DAVID Thomas [facility] 3 12:27:42 Problem Notes None recorded. Procedures Surgical History Date Name Laterality Status Provider Name and Address Organization Details Recorded Time Cataract Surgery completed DAVID Bates [facility] 01/13/2023 12:23:51 Hernia Repair completed DAVID Thomas [facility] 01/13/2023 12:24:00 Bladder completed DAVID Thomas [facility] 01/13/2023 12:24:12 appendectomy completed DAVID Thomas [facility] 01/13/2023 12:24:33 Imaging Results None recorded. Procedure Notes None recorded. Medical Equipment None Reported. Allergies Allergen ID Allergen Name Allergen Category Reaction Reaction Severity Criticality Documentation Date Start Date Code Code System Note Provider Name and Address Organization Details Recorded Time 73616 prednison e medicatio n Not available Not available Not available 01/13/2023 8640 RxNorm DAVID Thomas [facility] 3 12:25:05 61997 Levaquin medicatio n Not available Not available Not available 01/13/2023 82983 2 RxNorm DAVID Thomas [facility] 3 12:25:14 38714 Substance with sulfonami de structure and antibacte rial mechanism of action (substanc e) medicatio n Not available Not available Not available 01/13/2023 86504 8003 SNOMED DAVID Thomas [facility] 3 12:25:28 07793 antipyrin e medicatio n Not available Not available Not available 01/13/2023 1001 RxNorm DAVID Thomas [facility] 3 12:25:53 Medications Name Sig Start Date Stop Date Status Note LastModified by Organization Details LastModified Time verapamil ER (SR) 120 mg tablet,exte nded release TAKE 1 TABLET BY MOUTH EVERY DAY WITH FOOD active Not Available Not Available No t Available fluconazole 100 mg tablet TAKE 1 TABLET BY MOUTH EVERY DAY active Not Available Not Available No t Available atorvastati n 10 mg tablet TAKE 1 TABLET BY MOUTH EVERY DAY active Not Available Not Available No t Available atenolol 25 mg tablet 01/04 completed Not Available Not Available Not Available ciprofloxac in 250 mg tablet 01/04 completed Not Available Not Available Not Available allopurinol 100 mg tablet TAKE 1 TABLET BY MOUTH EVERY DAY active Not Available Not Available No t Available warfarin 3 mg tablet TAKE 1 TABLET BY MOUTH EVERY DAY active Not Available Not Available No t Available propranolol 40 mg tablet TAKE 1/2 TABLET BY MOUTH THREE TIMES A DAY active Not Available Not Available No t Available ferrous sulfate 325 mg (65 mg iron) tablet TAKE 3 TABLETS BY ORAL ROUTE ONCE DAILY active Not Available Not Available No t Available metoprolol tartrate 50 mg tablet TAKE 1 TABLET BY MOUTH TWICE A DAY active Not Available Not Available No t Available sertraline 25 mg tablet 01/04 completed Not Available Not Available Not Available ergocalcife rol (vitamin D2) 1,250 mcg (50,000 unit) capsule TAKE 1 CAPSULE BY MOUTH WEEKLY active Not Available Not Available No t Available methylpredn isolone 4 mg tablets in a dose pack 01/04 completed Not Available Not Available Not Available lisinopril 40 mg tablet TAKE 1 TABLET BY MOUTH EVERY DAY active Not Available Not Available No t Available sertraline 50 mg tablet TAKE 1/2 TO 1 TABLET BY MOUTH DAILY DIRECTED active Not Available Not Available No t Available amoxicillin 875 mg-potassiu m clavulanate 125 mg tablet TAKE 1 TABLET BY MOUTH EVERY 12 HOURS 01/13 completed Not Available Not Available Not Available amoxicillin 500 mg-potassiu m clavulanate 125 mg tablet TAKE 1 TABLET BY MOUTH EVEYR 12 HOURS FOR 3 DAYS 01/13 completed Not Available Not Available Not Available neomycin 3.5 mg/g-polymy hoang B 10,000 unit/g-dexa meth 0.1 % eye oint 01/04 completed Not Available Not Available Not Available metoprolol tartrate 25 mg tablet TAKE 3 TABLETS BY MOUTH TWICE A DAY active Not Available Not Available No t Available TRUEplus Lancets 30 gauge TEST GLUCOSE 3 TIMES A DAY active Not Available Not Available No t Available Eliquis 5 mg tablet TAKE 1 TABLET BY MOUTH TWICE A DAY active Not Available Not Available No t Available True Metrix Glucose Test Strip TEST GLUCOSE 3 TIMES A DAY active Not Available Not Available No t Available Cierra Garrett U-100 Insulin 100 unit/mL (3 mL) subcutaneou s INJECT 50 UNITS SUBCUTANE OUSLY DAILY WITH SUPPER active Not Available Not Available No t Available TRUEplus Pen Needle 31 gauge x 1/4 USE WITH INSULIN 5 TIMES DAILY active Not Available Not Available No t Available OneTouch Delica Plus Lancet 33 gauge active Not Available Not Available Not Available FreeStyle Neo 2 Sensor kit USE TO TEST EVERY 2-3 HOURS active Not Available Not Available No t Available FreeStyle Neo 2 [place] USE TO CHECK GLUCOSE EVERY 2-3 HOURS active Not Available Not Available No t Available Vitals Date Recorded Body height Body mass index (BMI) Body weight Provider Name and Address Organization Details Last Updated DateTime 01/13/2023 152.4 cm 45.7 kg/m2 630471.61 g DAVID Thomas [facility] 01/13/2023 13:30:19 Social History None recorded. Functional Status Question Answer Note LastModified by Organization D etails LastModified Time What is your level of alcohol consumption? None [email or web address] Information not available 01/13/2023 Mental Status None recorded. Family History Relationship Description Onset Age of this Age Resolved Age Notes LastModified by Organization Details LastModified Time Son Hypertensive disorder Not available 2022 12:23:18 Medical History Condition Response ARTHRITIS Y ANEMIA/BLOOD DISORDER Y DIABETES, TYPE Y GOUT Y Gynecological HistoryNo gynecological history recorded. Obstetrics History GPAL:G 0 P 0 0 0 0 Past Encounters Encounter ID Performer Location Encounter Start Date Encounter Closed Date Diagnosis/Indication Diagnosis SNOMED-CT Code Diagnosis ICD10 Code Diagnosis Note [id number] Sorin Guzman MD [facility] [place] [address] [place] [address] 01/13/2023 12:00:00 01/13/2023 16:43:43 Pain of right knee joint 2313701497 21180 M25.561 Health Concerns Section Related Observation LastModified by Organization Detai ls LastModified Time None Recorded Concern Status LastModified by Organization Details LastModified Time None Recorded Advance Directives Directive None Recorded Payers Insurance Date Sequence Insurance Name Policy Number Policy Randolph Covered Member ID Randolph Member ID Guarantor Name 12/30/2022 1 [place] [id number] Halina Colin [id number] Halina Colin 01/19/2023 1 [employer] (MEDICARE REPLACEMENT/ ADVANTAGE - PPO) Halina Colin [id number] Halina Colin OBGyn Episode No OBEpisode recorded.
--- OUTSIDE RECORDS SUMMARY | 2024-08-23 19:20 | XMS_ITS | Encounter Summary ---
Author Organization [facility] Address [address] [place] [address] Phone Care Team Providers Care Director Of Business Services Name Role Phone Jose Tovar MD Primary Care Provider Viktor Sierra MD Unavailable Reason for Visit * Reason Onset Date Comments Results 08/21/2024 Encounter Details Date Type Department Care Team (Late Contact Info) Description 08/21/2024 Results Follow-Up [facility] [address] [place] [address] Viktor Sierra MD [address] [address] CULTURE, URINE Social History Tobacco Use Types Packs/Day Years Used Date Smoking Tobacco: Former Cigarettes 2002 Smokeless Tobacco: Never Alcohol Use Standard Drinks/Week Comments Not Currently 0 (1 standard drink = 0.6 oz pur e alcohol) Comments Unknown Sex and Gender Information Value Date Recorded Sex Assigned at Not on file Legal Sex Female 11:30 AM CDT Gender Identity Not on file Sexual Orientation Not on file documented as of this encounter Progress Notes * Viktor Sierra MD - 08/21/2024 4:04 PM CDT Urine culture was positive antibiotics sent documented in this encounter Plan of Treatment Upcoming Encounters Date Type Department Care Team (Late st Contact Info) Description 09/18/2024 10:45 AM CDT Office [facility] [place] [phone] Viktor Sierra MD [address], [facility] [address] [place] [address] documented as of this encounter Visit Diagnoses Not on filedocumented in this encounter Care Teams Director Of Business Services Relationship Specialty Start Date End Date Jose Tovar MD [address] [place] [address] PCP - General Internal Medicine 11/19/21 Viktor Sierra MD [facility] [address] [place] [phone] Consulting Physician Urology 08/12/24 documented as of this encounter
--- OUTSIDE RECORDS SUMMARY | 2024-08-23 19:20 | XMS_ITS | Encounter Summary ---
Author Organization [facility] Address [address] [place] [address] Phone Care Team Providers Care Solar Tech Name Role Phone Jose Tovar MD Primary Care Provider Viktor Sierra MD Unavailable Encounter Details Date Type Department Care Team (Late st Contact Info) Description 08/23/2024 Telephone [facility] [address] [place] [address] Viktor Sierra MD #[address] [address] Social History Tobacco Use Types Packs/Day Years [...] on file documented as of this encounter Miscellaneous Notes * Telephone Encounter - Ela Thibodeaux - 08/23/2024 12:38 PM CDT [facility] [place] [facility] ( [phone][facility] faxed form to make us aware that Cefixime is on back order/ they can't get chewables. Please adivse documented in this encounter Plan of Treatment Upcoming Encounters Date Type Department Care Team (Late st Contact Info) Description 09/18/2024 10:45 AM CDT Office Visit [facility] [address] [place] [phone] Viktor Sierra MD #2 [facility] [address] [place] [address] documented as of this encounter Visit Diagnoses Not on filedocumented in this encounter Care Teams Solar Tech Relationship Specialty Start Date End Date Jose Tovar MD [address] [place] [address] PCP - General Internal Medicine 11/19/21 Viktor Sierra MD [address] [facility] [address] [place] [address] Consulting Physician Urology 08/12/24 documented as of this encounter
--- OUTSIDE RECORDS SUMMARY | 2024-08-23 19:20 | XMS_ITS | Clinical Summary ---
Author Organization [facility] Address [address] [place] [address] Care Team Providers Care Refrigeration Person Name Role Phone Jose Tovar MD Primary Care Provider [phone] Viktor Sierra MD Unavailable Allergies Active Allergy Reactions Criticality Noted Date Comments Amitriptyline Rash Low 05/10/2016 Diclofenac-Misoprostol Rash Low 09/24/2015 Levofloxacin Rash Low 05/10/2016 Nortriptyline Rash Low 05/10/2016 Paroxetine Rash Low 05/10/2016 Sulfa Antibiotics Rash Low 09/24/2015 Medications omeprazole (PriLOSEC) 20 MG CAPSULE DELAYED RELEASEIndicat ions:per patient statement on , only taking this medication every other day Take 20 mg by mouth daily. Indications: per patient statement on , only taking this medication every other day Active primidone (MYSOLINE) 50 MG Tablet 2 Active atorvastatin (LIPITOR) 10 MG Tablet Take 10 mg by mouth daily. 2 Active allopurinol (ZYLOPRIM) 100 MG Tablet 2 Active furosemide (LASIX) 20 MG Tablet 2 Active lisinopril (PRINIVIL, ZESTRIL) 40 MG Tablet Take 40 mg by mouth daily. 2 Active insulin aspart (NovoLOG FlexPen) 100 UNIT/ML Solution Pen-injector Uses 5 u at late breakfast, 10 u around 3 p.m., 10 u around 7 p.m. (per patient's statement). 2 Active warfarin (COUMADIN) 5 MG TabletIndicati ons:statement from patient I was told to stop from Dr. Whitehead's office for 5 days, my first stopped dose was on 11/18/21. Indications: statement from patient I was told to stop from Dr. Whitehead's office for 5 days, my first stopped dose was on 11/18/21. 2 Active fexofenadine (DENI) 180 MG Tablet Take 180 mg by mouth daily. Active sertraline (ZOLOFT) 50 MG Tablet Take 50 mg by mouth nightly. 2 Active insulin detemir (LEVEMIR) 100 UNIT/ML Solution 15 Units by Subcutaneous route nightly. Active metoprolol Succinate (TOPROL-XL) 100 MG TABLET SR 24 HR Take 100 mg by mouth daily. Active dabrafenib Mesylate (TAFINLAR) 75 MG Capsule Take by mouth Activ e propranolol (INDERAL) 40 MG Tablet Take 40 mg by mouth 3 times daily. Active trospium (SANCTURA) 20 MG Tablet Take 20 mg by mouth 2 times daily. Active hydrOXYzine (ATARAX) 25 MG Tablet Take 25 mg by mouth every 6 hours as needed. Active Loratadine 10 MG Capsule Take by mouth. Acti ve cefixime 200 MG Chewable Tablet Take 1 Tablet by mouth 2 times daily for 10 days. 20 Tablet 5 025 Active cefixime 200 MG Chewable Tablet Take 1 Tablet by mouth 2 times daily for 10 days. 20 Tablet 5 025 Discontin ued(Error ) Active Problems Problem Noted Date Diagnosed Date Class 3 severe obesity due t o excess calories with serious comorbidity and body mass index (BMI) of 40.0 to 44.9 in adult 08/14/2024 Type 2 diabetes mellitus wit h hyperglycemia, with long-term current use of insulin 08/14/2024 Abnormal cardiovascular stress test 11/19/2021 Overview (11/19/2021): Added automatically from request for surgery [id number] Encounters Date Type Department Care Team Description 08/23/2024 Telephone [facility] [address] [place] [address] Viktor Sierra MD 08/21/2024 Results Follow-Up [facility] [address] [place] [address] Viktor Sierra MD CULTURE, URINE 08/14/2024 8:30 AM CDT Office Visit [facility] [address] [place] [address] Viktor Sierra MD Urinary incontinence, unspecified type (Primary Dx); Class 3 severe obesity due to excess calories with serious comorbidity and body mass index (BMI) of 40.0 to 44.9 in adult; Type 2 diabetes mellitus with hyperglycemia, with long-term current use of insulin (HCC); Urine retention Discharge Disposition: Discharged to home or Selfcare 08/14/2024 Travel from Last 3 Months Family History Medical History Relation Name Comments Cancer Father lung Cancer Mother breast Chronic Obstructive Pulmonary Disease Mother Relation Name Status Comments Father Mother Social History Tobacco Use Types Packs/Day Years [...] on file Sexual Orientation Not on file Last Filed Vital Signs Vital Sign Reading Time Taken Comments Blood Pressure 128/76 08/14/2024 9:00 AM CDT Pulse 67 08/14/2024 9:00 AM CDT Temperature 36.3 C (97.4 F) 08/14/2024 9:00 AM CDT Respiratory Rate 14 08/14/2024 9:00 AM CDT Oxygen Saturation 98% 08/14/2024 9:00 AM CDT Inhaled Oxygen Concentration - - Weight 104.3 kg (230 lb) 08/14/2024 9:00 AM CDT Height 160 cm (5' 3) 08/14/2024 9:00 AM CDT Body Mass Index 40.74 08/14/2024 9:00 AM CDT Plan of Treatment Upcoming Encounters Date Type Department Care Team (Late st Contact Info) Description 09/18/2024 10:45 AM CDT Office Visit [facility] [address] [place] [address] Viktor Sierra MD [address], [facility] [address] [place] [address] Health Maintenance Due Date Last Done Comments DEXA Bone Density 1950 Diabetes: Eye Exam 1950 Diabetes: Foot Exam 1950 Hepatitis C Virus (HCV) Screening 1950 Mammogram 1950 TdaP Immunization 1950 Zoster Immunization (1 of 2) 06/03/1970 Cologuard 06/03/1996 Colonoscopy 06/03/1996 Colorectal Cancer Screening 06/03/1996 Immunochemical Fecal Occult Blood 06/03/1996 Pneumococcal Immunization (50+ years) (2 of 2 - PPSV23) 01/21/2019 11/26/2018 SARS-COV-2 Immunization (3 - Moderna risk series) 07/31/2020 07/03/2020, 06/05/2020 Diabetes: Nephropathy Screening 11/23/2022 11/23/2021 Diabetes: Hemoglobin A1c 03/17/2024 09/15/2023 Respiratory Syncytial Virus (RSV) Immunization (Adult) Completed 02/14/2023 Influenza Immunization Completed , 02/14/2023, 12/01/2020, Additional history exists Hepatitis B Immunization Aged Out No longer eligible based on patient's age to complete this topic Human Papillomavirus (HPV) Immunization Aged Out No longer eligible based on patient's age to complete this topic Meningococcal Immunization (ACWY) Aged Out No longer eligible based on patient's age to complete this topic Rotavirus Immunization Aged Out No lo nger eligible based on patient's age to complete this topic Procedures Procedure Name Priority Date/Time Associated Diagnosis Comments CULTURE, URINE Routine 08/14/2024 11:03 AM CDT Urine retention POCT UA AUTOMATED W/O MICRO Routine 08/14/2024 8:59 AM CDT Urinary incontinence, unspecified type CMP (COMPREHENSIVE METABOLIC PANEL) Routine 11/23/2021 10:22 AM CDT from Last 3 Months or Most Recently Relevant to Health Maintenance Results * CULTURE, URINE (08/14/2024 11:03 AM CDT) CULTURE RESULTS PROTEUS MIRABILIS 08/16/2024 4:07 PM CDT [facility] Culture (Straight Catheter) Non-Phlebotomy Collection / Unknown 08/14/2024 11:03 AM CDT 08/14/2024 11:03 AM CDT Narrative Organism Antibiotic Method Susceptibility Proteus mirabilis Ampicillin [facility] IIB >=32 mcg/ml: Resistant Proteus mirabilis Ampicillin/sulbactam [facility] IIB 4 mcg/ml: Susceptible Proteus mirabilis Cefazolin [facility] IIB <16 mcg/ml: Intermediate Proteus mirabilis Cefepime [facility] IIB <=0.12 mcg/ml: Susceptible Proteus mirabilis Ceftriaxone [facility] IIB <=0.25 mcg/ml: Susceptible Proteus mirabilis Gentamicin [facility] IIB <=1 mcg/ml: Susceptible Proteus mirabilis Levofloxacin [facility] IIB <=0.12 mcg/ml: Susceptible Proteus mirabilis Meropenem [facility] IIB 0.5 mcg/ml: Susceptible Proteus mirabilis Nitrofurantoin [facility] IIB Resistant Proteus mirabilis Piperacillin/Tazobactam [facility] I IB <=4 mcg/ml: Susceptible Proteus mirabilis Trimeth/Sulfamethoxazole [facility] IIB <=20 mcg/ml: Susceptible us Viktor Sierra MD MICROBIOLOGY - GENERAL ORDERABLE S Final Result [facility] [address] [place] [address], * (ABNORMAL) POCT UA AUTOMATED W/O MICRO (08/14/2024 8:59 AM CDT) POC UA SPECIFIC GRAVITY 1.010 URINE PH 6.5 5.0 - 9.0 POC URINE LEUKOCYTES 500 /uL(A) Negative Kassandra/uL POC URINE NITRITE Positive(A) Negative POC URINE PROTEIN 30 mg/dL(A) Negative mg/dL POC URINE GLUCOSE Norm Negative, Norm mg/dL POC URINE KETONE Negative Negative mg/dL POC URINE UROBILINOGEN Norm Norm, 0.2 E.U./dL (mg/dL), 1 E.U./dL (mg/dL) POC URINE BILIRUBIN Negative Negative mg/dL POC URINE BLOOD INSTRUMENT 50 Juliano/uL(A) Negative Juliano/uL POC URINE COLOR Yellow POC URINE CLARITY Cloudy Urine 08/14/2024 8:59 AM CDT us Viktor Sierra MD POINT OF CARE TESTING (MANUAL) F inal Result * (ABNORMAL) CMP (Comprehensive Metabolic Panel) (11/23/2021 10:22 AM CDT) SODIUM 137 136 - 144 mmol/L 11/23/2021 10:53 AM CDT [facility] POTASSIUM 5.0 3.5 - 5.1 mmol/L 11/23/2021 10:53 AM CDT [facility] CHLORIDE 103 100 - 110 mmol/L 11/23/2021 10:53 AM CDT [facility] CO2, VENOUS 25 22 - 32 mmol/L 11/23/2021 10:53 AM CDT [facility] ANION GAP 14.0 8.0 - 20.0 mmol/L 11/23/2021 10:53 AM CDT [facility] GLUCOSE 101(H) 70 - 99 mg/dL 11/23/2021 10:53 AM CDT [facility] BUN 35(H) 8 - 23 mg/dL 11/23/2021 10:53 AM CDT [facility] CREATININE, BLOOD 1.45(H) 0.60 - 1.10 mg/dL 11/23/2021 10:53 AM CDT [facility] BUN/CREATININE RATIO 24(H) 12 - 20 ratio 11/23/2021 10:53 AM CDT [facility] TOTAL PROTEIN 7.0 6.0 - 8.3 g/dL 11/23/2021 10:53 AM [facility] ALBUMIN 3.6 3.5 - 5.2 g/dL 11/23/2021 10:53 AM [facility] Comment: The colormetric methods used for the determination of Albumin may lead to falsely elevated test results in patients suffering from renal failure or insufficiency due to interference with other proteins. A/G RATIO 1.1 1.0 - 2.0 11/23/2021 10:53 AM T [facility] CALCIUM 9.5 8.9 - 10.3 mg/dL 11/23/2021 10:53 AM [facility] T BILI 0.7 <=1.2 mg/dL 11/23/2021 10:53 AM [facility] SGOT (AST) 142(H) <=32 U/L 11/23/2021 10:53 AM [facility] SGPT (ALT) 101(H) <=41 U/L 11/23/2021 10:53 AM [facility] ALKALINE PHOSPHATASE 212(H) 35 - 105 U/L 11/23/2021 10:53 AM [facility] GFR, ESTIMATED 39(L) >=60 11/23/2021 10:53 AM [facility] Comment: Creatinine Clearance is the preferred criteria for selecting drug dose adjustments in renally impaired patients. The GFR is provided as additional pertinent clinical information. GFR is reported in mL/min/1.73 sq m. Calculation based on the Chronic Kidney Disease Epidemiology Collaboration (CKD- EPI) equation refit without adjustment for race. GFR, EST. 43(L) >=60 022 10:53 AM [facility] GFR, EST. NONAFRICAN 36(L) >=60 11/23/2021 10:53 AM [facility] Blood Venipuncture / Unknown 11/23/2021 10:22 AM CDT 11/23/2021 10:22 AM CDT us Adan Whitehead MD CHEMISTRY ORDERABLES Fi nal Result [facility] [address] [place] [address] from Last 3 Months or Most Recently Relevant to Health Maintenance Insurance MEDICARE C [employer] Advance Directives Documents on File Type Date Recorded Patient Life Insurance Underwriter Expl anation Other Advance Directive 11/19/2021 4:21 PM CARDIO AUTH Other Advance Directive 11/19/2021 4:13 PM Insurance Prior Auth Other Advance Directive 11/19/2021 11:55 AM insurance card Care Teams Refrigeration Person Relationship Specialty Start Date End Date Jose Tovar MD [address] [place] [address] PCP - General Internal Medicine 11/19/21 Viktor Sierra MD [address], [facility] [address] [place] [address] Consulting Physician Urology 08/12/24
[2024-08-23 19:22] VITALS: BP 147/68; PULSE 74; RESP 15; TEMP 36.1; O2SAT 96
--- NOTE | 2024-08-23 19:23 | ED_ITS ---
HPI - Fall General Chief Complaint: Fall Stated Complaint: Fall Time Seen by Provider: 08/23/24 19:23 Source: patient and EMS Mode of arrival: wheelchair History of Present Illness HPI Narrative: 74-year-old female with a history of obesity, fibromyalgia, depression, diabetes, gout, GERD, sciatica, osteoarthritis status post left knee replacement, hypertension, CHF, AFib on Pradaxa/ Eliquis, CVA with no residual defect, chronic anemia, CKD presents to the ED via EMS after an accidental fall. no loss of consciousness. No ENT bleeding. She presents with -- Occipital pain. She fell on the occiput and hit a trash can. No hematoma or bleeding. -- No focal neuro deficits. patient called the [employer] MD complaint: fall Onset (ago): hour(s) ( 1 hour ago) Fall from: standing Fall witnessed: no Place fall occurred: home Loss of consciousness: none Prolonged down time: no Symptoms prior to fall: none Context: tripped/slipped Location of injury: head Quality: aching Associated symptoms (after fall): headache and chest pain Related Data Home Medications ?Medication ?Instructions ?Recorded ?Confirmed ?Last Taken ?Type insulin aspart U-100 100 unit/mL See Rx Instructions .Route .COMPLEX 09/24/21 07/03/24 Unknown History (3 mL) subcutaneous pen (Novolog FlexPen U-100 Insulin aspart) trospium 20 mg tablet 20 mg PO BID 03/14/23 07/03/24 Unknown History allopurinol 100 mg tablet 100 mg PO DAILY 06/15/23 07/03/24 Unknown History omeprazole 20 mg PO EVERY OTHER DAY 09/28/23 07/03/24 Unknown History apixaban 5 mg tablet (Eliquis) 5 mg PO BID 02/05/24 07/03/24 Unknown History atorvastatin 10 mg tablet 10 mg PO DAILY 02/05/24 07/03/24 Unknown History buspirone 10 mg tablet 10 mg PO BID 02/05/24 07/03/24 Unknown History ferrous sulfate 325 mg (65 mg 325 mg PO DAILY 02/05/24 07/03/24 Unknown History iron) tablet furosemide 20 mg tablet 20 mg PO QAM 02/05/24 07/03/24 Unknown History guar gum 1 gram tablet g PO 02/05/24 07/03/24 Unknown History hydralazine 25 mg tablet 25 mg PO TID 02/05/24 07/03/24 Unknown History insulin glargine 100 unit/mL (3 9 unit subcut QPM 02/05/24 07/03/24 Unknown History mL) subcutaneous pen (Basaglar KwikPen U-100 Insulin) lisinopril 40 mg tablet 40 mg PO DAILY 02/05/24 07/03/24 Unknown History loratadine 10 mg tablet 10 mg PO DAILY 02/05/24 07/03/24 Unknown History metoprolol succinate 100 mg 100 mg PO BID 02/05/24 07/03/24 Unknown History tablet,extended release 24 hr propranolol 40 mg tablet 40 mg PO Q12H 02/05/24 07/03/24 Unknown History sertraline 25 mg tablet 25 mg PO DAILY 02/05/24 07/03/24 Unknown History Allergies Allergy/AdvReac Type Severity Reaction Status Date / Time prednisone Allergy Mild unknown Verified 08/23/24 19:27 diclofenac Allergy Unknown Unknown Verified 08/23/24 19:27 levofloxacin Allergy Unknown Unknown Verified 08/23/24 19:27 misoprostol Allergy Unknown Unknown Verified 08/23/24 19:27 nortriptyline Allergy Unknown Unknown Verified 08/23/24 19:27 paroxetine Allergy Unknown Unknown Verified 08/23/24 19:27 Sulfa (Sulfonamide Allergy Unknown Unknown Verified 08/23/24 19:27 Antibiotics) Review of Systems 2 Review of Systems: All systems reviewed & are unremarkable except as noted in HPI and below Constitutional: Constitutional: Reports as per HPI and Reports no additional constitutional complaints Eyes: Eyes: Reports as per HPI and Reports no additional eye complaints ENT: Reports system reviewed and no additional complaints, except as documented and Reports as per HPI Cardiovascular: Cardiovascular: Reports as per HPI and Reports no additional cardiovascular complaints Respiratory: Respiratory: Reports as per HPI and Reports no additional respiratory complaints Gastrointestinal: Gastrointestinal: Reports as per HPI and Reports no additional gastrointestinal complaints Genitourinary: Genitourinary: Reports no additional female genitourinary complaints Musculoskeletal: Comments: chronic right knee pain. Integumentary/Breasts: Skin/Breast: Reports system reviewed and no additional complaints, except as docu and Reports as per HPI Neurologic: Reports system reviewed and no additional complaints, except as documented, Reports as per HPI and Reports headache(s) Psychiatric: Psychiatric: Reports no additional psychiatric complaints and Reports as per HPI Endocrine: Endocrine: Reports no additional endocrine complaints and Reports as per HPI Hematologic/Lymphatic: Hematologic/Lymphatic: Reports no additional hematologic/lymphatic complaints and Reports as per HPI Allergic/Immunologic: Allergic/Immunologic: Reports no additional allergic/immunologic complaints and Reports as per HPI [facility] Past Medical History Medical History Trochanteric bursitis of right hip Sciatica of right side Primary osteoarthritis of right knee Primary osteoarthritis of left shoulder Complete tear of left rotator cuff CVA (cerebral vascular accident) BMI greater than 40 Acquired valgus deformity knee Fibromyalgia Arthritis Claustrophobia Right knee DJD Depression GERD (gastroesophageal reflux disease) HTN (hypertension) Diabetes mellitus Surgical History Surgical History History of bowel resection S/P small bowel resection H/O tubal ligation History of knee replacement H/O total hysterectomy with bilateral salpingo-oophorectomy (BSO) Hx of cholecystectomy History of endometrial ablation H/O dilation and curettage History of bladder surgery History of appendectomy History of colon surgery Family History Family History Other Diabetes mellitus Family history of arthritis Family history of malignant neoplasm Hypertension Lung cancer Social History Social History Years smoked: 24 Smoking status: Never smoker Smoking end date: 03/13/00 Alcohol intake: unknown Substance use: never Substance use type: does not use Do You Feel Safe in your Home?: Yes Lack of Transportation: No Lack of Food: Never True Current Housing: I Have Housing Concerned About Future Housing: No Difficulty Paying Gas/Electric Bills: No Difficulty Paying for Meds: No Currently Unemployed: No Education: High School Diploma/GED Difficulty w/ Childcare or Family Care: No Living arrangements: with family Occupation/Education: retired Gender identity (if verbalized by the patient): Female Spiritual care concerns: No Exam 2 Narrative: Blood pressure is 147/68. Pulse of 74. Oxygen saturation of 96% on room air. Const: General: no acute distress Nutritional Appearance: obese O rientation/consciousness: patient oriented x3 Limitations: no limitations HENMT: Head: normal to inspection Head images: 1. Tenderness without any hematoma /contusion Ears: external ears normal, TM's normal bilaterally and EAC's normal F brittany/Nose/Sinus: Normal external nose present and Normal nares present Face and sinus: normal facial exam and sinuses nontender Mouth: Yes Normal oral and palatal mucosa present and Yes lip normal Throat: posterior oropharynx normal Eyes: Conjunctivae: conjunctival abnormality ( left subconjunctival hemorrhage on the lateral eye) Pupils: Equal, round and reactive pupils present EOM: EOMs intact bilaterally Direct Ophthalmoscopy: no photophobia Neck: Neck: normal visual inspection, no lymphadenopathy and no meningeal signs Other: no spinal tenderness Chest: Chest palpation & inspection: normal inspection of the chest Resp: Effort & Inspection: normal respiratory effort Auscultation: clear to auscultation bilaterally Cardio: Rate: regular rate Rhythm: abnormal rhythm GI: Auscultation: normal bowel sounds Other: no tenderness/rigidity / rebound. : General: Yes no CVA tenderness Other: chronic Pederson's catheter Back/Spine/Pelvis: Back: no CVA tenderness Other: No spinal tenderness noted. Skin: General skin exam: normal color Rashes: no rashes Wounds: no wounds Neuro: General: patient oriented x3, moves all extremities, no meningeal signs, no focal motor deficits and CN's II-XI intact bilaterally Cranial nerves: Yes Nystagmus not present Speech: normal speech Extrem: General: normal to inspection Other: Right knee has decreased range of motion. Swelling of the right leg. This is chronic. Psych: Mental Status: mental status grossly normal Affect: normal affect Attitude: cooperative Course Course Emergency Course: accidental fall head injury- CT of the head/ neck and x-rays of the chest and pelvis did not show any fracture /dislocation left subconjunctival hemorrhage chronic right knee pain CKD Vital Signs Vital signs: Vital Signs Temperature 36.1 C L 08/23/24 19:22 Pulse Rate 74 08/23/24 19:22 Respiratory Rate 15 08/23/24 19:22 Blood Pressure 147/68 H 08/23/24 19:22 Pulse Oximetry 96 08/23/24 19:22 Oxygen Delivery Room Air 08/23/24 19:22 Temperature 36.1 C L 08/23/24 19:22 Pulse Rate 74 08/23/24 19:22 Respiratory Rate 15 08/23/24 19:22 Blood Pressure 147/68 H 08/23/24 19:22 Pulse Oximetry 96 08/23/24 19:22 Oxygen Delivery Room Air 08/23/24 19:22 MDM - Fall MDM Narrative Medical decision making narrative: accidental fall head injury CKD subconjunctival hemorrhage Differential Diagnosis Differential diagnosis: Likely concussion without loss of consciousness Medical Records Attestation: I reviewed the patient's medical records. Lab Data Attestation: I reviewed the patient's lab results. 08/23/24 20:14 08/23/24 20:14 Labs: Lab Results 08/23/24 08/23/24 Range/Units 19:28 20:14 WBC 12.7 H (4.8-10.8) K/mm3 RBC 3.61 L (4.20-5.40) M/mm3 Hgb 11.2 L (11.7-13.8) g/dL Hct 35.1 (35.0-42.0) % MCV 97.2 (78.0-102.0) fL MCH 31.0 (27.0-31.0) pg MCHC 31.9 L (32-36) g/dL RDW 14.4 (11.6-14.4) % Plt Count 204 (150-420) K/mm3 MPV 12.2 H (9.2-11.8) fl Immature Gran % (Auto) 0.6 H (0.0-0.0) % Neut % (Auto) 79.2 H (50.0-70.0) % Lymph % (Auto) 11.0 L (18.0-42.0) % [place] % (Auto) 7.0 (2.0-11.0) % Eos % (Auto) 1.8 (1.0-6.0) % Baso % (Auto) 0.4 (0.0-1.0) % Lymph # (Auto) 1.40 (1.10-4.50) K/mm3 [place] # (Auto) 0.89 (0.10-0.90) K/mm3 Eos # (Auto) 0.23 (0.02-0.50) K/mm3 Baso # (Auto) 0.05 (0.00-0.10) K/mm3 Abs Immat Gran (auto) 0.07 H (0.00-0.00) K/mm3 Absolute Neuts (auto) 10.05 H (1.70-7.20) K/mm3 Absolute Nucleated RBC 0.00 (0.00-0.00) K/mm3 Nucleated RBC % 0.0 (0-0.0) % Sodium 139 (137-145) mmol/L Potassium 4.5 (3.4-5.0) mmol/L Chloride 107 (98-107) mmol/L Carbon Dioxide 27 (22-30) mmol/L Anion Gap 5 (4-12) mmol/L BUN 33 H (7-17) mg/dL Creatinine 1.37 H (0.7-1.0) mg/dL Estim Creat Clear Calc 39 ml/min Estimated GFR 38 L (59 - ) Glucose 113 H (65-110) mg/dL POC Capillary Glucose 99 (65-105) mg/dl Calculated Osmolality 296 H (285-295) mOsm/kg Calcium 9.2 (8.4-10.2) mg/dL Total Bilirubin 0.5 (0.2-1.3) mg/dL AST 34 (14-36) U/L ALT 22 (6-35) U/L Alkaline Phosphatase 137 H (38-126) U/L Total Protein 6.9 (6.3-8.2) g/dL Albumin 3.8 (3.5-5.1) g/dL Discharge Plan Discharge Clinical Impression: Accidental fall Qualifiers: Encounter type: initial encounter Qualified Code(s): W19.XXXA - Unspecified fall, initial encounter Head injury Qualifiers: Encounter type: initial encounter Qualified Code(s): S09.90XA - Unspecified injury of head, initial encounter Patient Disposition: Home Condition: Stable Instructions: Antibiotic Form, Fall Prevention for Older Adults (ED), Head Injury (ED) Patient Language: Latvian Prescriptions: No Action trospium 20 mg tablet 20 mg PO BID omeprazole 20 mg PO EVERY OTHER DAY insulin aspart U-100 [Novolog FlexPen U-100 Insulin] 100 unit/mL (3 mL) insulin pen See Rx Instructions .ROUTE .COMPLEX Rx Instructions: Inject 5 units subq in the morning for diabetes before breakfast estradiol [Estrace] 0.01 % (0.1 mg/gram) cream 1 appful vaginal DAILY Qty: 42.5 0RF Rx Instructions: for 14 days allopurinol 100 mg tablet 100 mg PO DAILY metoprolol succinate 100 mg tablet extended release 24 hr 100 mg PO BID Eliquis 5 mg tablet 5 mg PO BID ferrous sulfate 325 mg (65 mg iron) tablet 325 mg PO DAILY atorvastatin 10 mg tablet 10 mg PO DAILY propranolol 40 mg tablet 40 mg PO Q12H hydralazine 25 mg tablet 25 mg PO TID lisinopril 40 mg tablet 40 mg PO DAILY buspirone 10 mg tablet 10 mg PO BID furosemide 20 mg tablet 20 mg PO QAM loratadine 10 mg tablet 10 mg PO DAILY guar gum 1 gram tablet PO insulin glargine [Basaglar KwikPen U-100 Insulin] 100 unit/mL (3 mL) insulin pen 9 unit subcut QPM sertraline 25 mg tablet 25 mg PO DAILY methylprednisolone [Medrol (Norris)] 4 mg tablets,dose pack 4 mg PO PER PKG DIR Qty: 21 0RF Follow-up/Referrals: Jose Tovar MD [Primary Care Provider] - Time of Disposition: 21:54
--- NOTE | 2024-08-23 19:28 | PC.NURSE ---
DR BAEZ AT THE BEDSIDE
--- NOTE | 2024-08-23 19:29 | PC.NURSE ---
Patient's Glucose was 99 @1927
[2024-08-23 19:30] LABS: Glucose Point of Care 99 mg/dl (65-105)
--- NOTE | 2024-08-23 19:35 | ECG_ITS ---
Test Date: 2024-08-23 20:19:49 Measurements Intervals [place] Rate: 61 P: 0 [place]: 0 QRS: -15 QRSD: 94 T: 55 QT: 413 QTc: 417 Interpretive Statements ATRIAL FIBRILLATION INCOMPLETE RIGHT BUNDLE BRANCH BLOCK BORDERLINE R WAVE PROGRESSION, ANTERIOR LEADS BORDERLINE T WAVE ABNORMALITY- ANTERIOR LEADS ABNORMAL ECG Compared to ECG 09/14/2023 05:02:33 NO SIGNIFICANT CHANGE Electronically Signed On 08-24-2024 07:20:11 CDT by aDgo Randle D.O.
--- NOTE | 2024-08-23 19:43 | PC.NURSE ---
PATIENT TRANSPORTED TO CT VIA STRETCHER
--- NOTE | 2024-08-23 19:45 | PC.NURSE ---
LAB NOTIFIED OF LAB DRAW. REQUESTED PHONE CALL WHEN PATIENT RETURNS TO ROOM
--- NOTE | 2024-08-23 20:11 | PC.NURSE ---
PHILLIP ORTEGA, AT THE BEDSIDE FOR EKG. LAB AT THE BEDSIDE
[2024-08-23 20:20] LABS: Basophils Absolute Auto 0.05 K/mm3 (0.00-0.10); Basophils Percent Auto 0.4 % (0.0-1.0); Eosinophils Absolute Auto 0.23 K/mm3 (0.02-0.50); Eosinophils Percent Auto 1.8 % (1.0-6.0); Hematocrit 35.1 % (35.0-42.0); Hemoglobin 11.2 g/dL (11.7-13.8); Immature Granulocyte Absolute 0.07 K/mm3 (0.00-0.00); Immature Granulocyte Percent A 0.6 % (0.0-0.0); Mean Corpuscular HGB Conc 31.9 g/dL (32-36); Mean Corpuscular Volume 97.2 fL (78.0-102.0); Mean Platelet Volume 12.2 fl (9.2-11.8); Monocytes Absolute Auto 0.89 K/mm3 (0.10-0.90); Neutrophils Absolute Auto 10.05 K/mm3 (1.70-7.20); Neutrophils Percent Auto 79.2 % (50.0-70.0); Platelet Count Result 204 K/mm3 (150-420); Red Blood Count 3.61 M/mm3 (4.20-5.40); Red Cell Distribution Width 14.4 % (11.6-14.4); White Blood Count 12.7 K/mm3 (4.8-10.8)
[2024-08-23 20:41] LABS: Alanine Aminotransferase 22 U/L (6-35); Albumin Level 3.8 g/dL (3.5-5.1); Alkaline Phosphatase 137 U/L (38-126); Anion Gap 5 mmol/L (4-12); Aspartate Amino Transferase 34 U/L (14-36); Bilirubin,Total 0.5 mg/dL (0.2-1.3); Blood Urea Nitrogen 33 mg/dL (7-17); Calcium 9.2 mg/dL (8.4-10.2); Carbon Dioxide 27 mmol/L (22-30); Chloride 107 mmol/L (98-107); Estimated CRCL calculation 39 ml/min; Estimated Glomerular Filt Rate 38; Glucose 113 mg/dL (65-110); Osmolality Calculated 296 mOsm/kg (285-295); Potassium 4.5 mmol/L (3.4-5.0); Sodium 139 mmol/L (137-145); Total Protein 6.9 g/dL (6.3-8.2)
--- NOTE | 2024-08-23 21:09 | PC.NURSE ---
FAMILY MEMBER, RONNI, AT THE BEDSIDE
--- NOTE | 2024-08-23 21:51 | PC.NURSE ---
PATIENT AMBULATED WITH WALKER IN THE ROOM. PATIENT DENIES ANY PAIN. UTILIZED WALKER CORRECTLY. STAFF AT HER SIDE. REPORTS THAT SHE IS READY TO GO HOME.
[2024-08-23 22:10] VITALS: BP 142/78; PULSE 76; RESP 16; O2SAT 96
== END 2024-08-23 22:10 | disposition home or self-care (01) ==
PROVIDERS: Emergency Provider Internal Medicine Critical Care Medicine; PCP Internal Medicine
DX: S09.90XA Unspecified injury of head, initial encounter (principal); I13.0 Hypertensive heart and chronic kidney disease with heart failure and stage 1 through stage 4 chronic kidney disease, or unspecified chronic kidney disease; I50.9 Heart failure, unspecified; N18.9 Chronic kidney disease, unspecified; E11.22 Type 2 diabetes mellitus with diabetic chronic kidney disease; I48.91 Unspecified atrial fibrillation; Z79.01 Long term (current) use of anticoagulants; Z86.73 Personal history of transient ischemic attack (TIA), and cerebral infarction without residual deficits; W01.198A Fall on same level from slipping, tripping and stumbling with subsequent striking against other object, initial encounter; Y92.009 Unspecified place in unspecified non-institutional (private) residence as the place of occurrence of the external cause
CPT/HCPCS: 36415; 70450; 71045; 72125; 72170; 80053; 82948; 85025; 93005; 99284

== ENCOUNTER 2024-12-27 11:24 | Outpatient (CLI) | payer MEDICARE, SELFPAY ==
--- NOTE | ~2024-12-27 | CT_ITS ---
EXAMINATION: CT brain wo con DATE: 12/27/2024 12:49 INDICATION: Dizziness and headache. TECHNIQUE: Computed tomography (CT) of the head was performed without intravenous contrast. The mA was adjusted according to patient size. Iterative reconstruction technique was employed. The dose-length product was 681.00 mGy-cm. COMPARISON: Head CT 08/23/2024 FINDINGS: There are scattered areas of low attenuation in the cerebral white matter, which is within normal limits for the patient's age. There is no intracranial hemorrhage, acute infarction, or abnormal intracranial mass lesion. The ventricles are normal in size. There are likely changes of ocular lens replacement surgeries. The paranasal sinuses are clear. The mastoid air cells are normal. IMPRESSION: 1. Normal aging brain. Reviewed, dictated and finalized at location E. IMPRESSION: 1. Normal aging brain.
[2024-12-27 11:40] LABS: Hematocrit 34.1 % (35.0-42.0); Hemoglobin 10.6 g/dL (11.7-13.8); Mean Corpuscular HGB Conc 31.1 g/dL (32-36); Mean Corpuscular Hemoglobin 30.1 pg (27.0-31.0); Mean Corpuscular Volume 96.9 fL (78.0-102.0); Platelet Count Result 223 K/mm3 (150-420); Red Blood Count 3.52 M/mm3 (4.20-5.40); White Blood Count 11.0 K/mm3 (4.8-10.8)
[2024-12-27 11:49] LABS: Add Urine Microscopic? YES; Glucose Urine UA Negative (Negative); Leukocyte Esterase Ur 3+ (Negative); Nitrate Urine Negative (Negative); Specific Grav Ur 1.010 (1.010-1.020)
[2024-12-27 11:56] LABS: Appearance Urine Cloudy (Clear)
[2024-12-27 11:57] LABS: INR 1.0; Partial Thromboplastin Time 33.8 Sec (23.9-30.70); Prothrombin Time 11.1 Seconds (9.50-12.1)
[2024-12-27 12:05] LABS: Alanine Aminotransferase 22 U/L (6-35); Albumin Level 4.0 g/dL (3.5-5.1); Alkaline Phosphatase 117 U/L (38-126); Anion Gap 6 mmol/L (4-12); Aspartate Amino Transferase 37 U/L (14-36); Bilirubin,Total 0.4 mg/dL (0.2-1.3); Blood Urea Nitrogen 37 mg/dL (7-17); Calcium 9.6 mg/dL (8.4-10.2); Carbon Dioxide 28 mmol/L (22-30); Chloride 107 mmol/L (98-107); Creatine Kinase 46 U/L (30-135); Estimated Glomerular Filt Rate 34; Glucose 161 mg/dL (65-110); Osmolality Calculated 303 mOsm/kg (285-295); Potassium 5.2 mmol/L (3.4-5.0); Sodium 141 mmol/L (137-145); Total Protein 8.1 g/dL (6.3-8.2)
--- OUTSIDE RECORDS SUMMARY | 2024-12-27 12:14 | XMS_ITS | Patient Health Record ---
Author Organization [facility] Address [address] [place], [place] [id number] Care Team Providers Care Scoring Machine Operator Name Role Phone STEPHANIE GRECO Unavailable [phone] Skip Lord Unavailable Unavailable Reason For Referral No Information Medications Medication SIG (Take, Route, Frequency, Duration) Notes Start Date End Date Status sertraline 25 MG Oral Tablet ORAL sertraline 25 MG Oral TabletOriginal Medicationsertraline 25 MG Oral Tablet *Reorder from [employer] for eRx and Interaction Alerts* 4 Active omeprazole 20 MG Delayed Release Oral Tablet ORAL omeprazole 20 MG Delayed Release Oral TabletOriginal Medicationomeprazole 20 MG Delayed Release Oral Tablet *Reorder from [employer] for eRx and Interaction Alerts* 4 Active acetaminophen 32 MG/ML Oral Solution ORAL acetaminophen 32 MG/ML Oral SolutionOriginal Medicationacetaminophen 32 MG/ML Oral Solution *Reorder from [employer] for eRx and Interaction Alerts* 4 Active Atenolol 25 MG Oral Tablet ORAL atenolol 25 MG Oral TabletOriginal Medicationatenolol 25 MG Oral Tablet *Reorder from [employer] for eRx and Interaction Alerts* 4 Active Plan Of Treatment No Information Insurance Providers Payer Name Payer Address Payer Phone Subscriber Number Group Number Insured Name Patient Relationship to Insured Coverage Start Date Coverage End Date [facility] ([facility]) ATTN CLAIMS [address] [place] [address] [id number] BARBARA ESTRADA Self - patient is the insured
--- OUTSIDE RECORDS SUMMARY | 2024-12-27 12:14 | XMS_ITS ---
Author Organization [facility] Care Team Providers Care Fermenting Cellar Dropper Name Role Phone Marcio Pearson Unavailable Unavailable Jose Tovar Unavailable Unavailable Allergies and adverse reactions Code CodeSystem Substance Reaction Severity StartDate Concern Status Diclofenac/Misop ro stol Eruption (code- 400455058, SNOMED CT) Unknown 09/26/2023 active 96262 RXNORM levoFLOXacin Unknown 09/26/2023 active 7531 RXNORM Nortriptyline Unknown 09/26/2023 active 08255 RXNORM PARoxetine Unknown 09/26/2023 active 8640 RXNORM predniSONE Unknown 09/26/[address] Sulfa Antibiotics Unknown 09/26/2023 active Care Team Name Role Address Phone Organization [facility] [address] [place], [address], [facility] : [facility] 09/30/2023 - 11/28/2023 Marcio Pearson [address] [place], [address], [facility] : : [facility] 09/30/2023 - 11/28/2023 Immunizations Immunization Status Vaccine Details Vaccine Code CodeSystem Date Notes TB 2 Step Mantoux Skin Test completed tuberculin skin test; unspecified formulation lotNumber: [id number] expiry: 11/10/2026 Mfg: tubasol Given 0.1 ml Left Forearm intradermally Step 2 of Multi-step with next step required 98 CVX created date: 11/18/2023 consent date: 11/18/2023 administere d date: 11/15/2023 TB 2 Step Mantoux Skin Test completed tuberculin skin test; unspecified formulation lotNumber: [id number] expiry: 06/11/2026 Mfg: tubasol Given 0.1 ml Right Forearm subcutaneously Step 1 of Multi-step with next step required 98 CVX created date: 11/04/2023 consent date: 11/04/2023 administere d date: 11/04/2023 Mental Status Section Date Assessment Total Score Description 11/28/2023 BIMS 15 cognitively int act CAM 0 No delirium ind icated PHQ-9 00 10/06/2023 BIMS 15 cognitively int act CAM 0 No delirium ind icated PHQ-9 03 minimal depress ion Insurance Providers Problems Problem # Description Date of onset Resolved Date Code CodeSystem Concern Status 1 SHORT BOWEL SYNDROME, UNSPECIFIED 09/30/[address] active 2 ACQUIRED ABSENCE OF OTHER SPECIFIED PARTS OF DIGESTIVE TRACT 09/26/[address] active 3 ACUTE (REVERSIBLE) ISCHEMIA OF INTESTINE, PART AND EXTENT UNSPECIFIED 09/26/[address] active 4 ACUTE PULMONARY EDEMA 09/26/[address] active 5 ACUTE RESPIRATORY FAILURE WITH HYPOXIA 09/26/[address] active [address]ATHY, UNSPECIFIED 09/26/[address] active 7 CHRONIC KIDNEY DISEASE, UNSPECIFIED 09/26/[address] active 8 ENCOUNTER FOR SURGICAL AFTERCARE FOLLOWING SURGERY ON THE DIGESTIVE SYSTEM 09/26/[address] active 9 ESSENTIAL (PRIMARY) HYPERTENSION 09/26/[address] active 10 GASTRO-ESOPHAGEAL REFLUX DISEASE WITHOUT ESOPHAGITIS 09/26/[address] active 11 HYPERLIPIDEMIA, UNSPECIFIED 09/26/[address] active 12 NONRHEUMATIC TRICUSPID (VALVE) INSUFFICIENCY 09/26/[address] active 13 PERSONAL HISTORY OF OTHER SPECIFIED CONDITIONS 09/26/[address] active 14 PRESENCE OF LEFT ARTIFICIAL KNEE JOINT 09/26/[address] active 15 TYPE 2 DIABETES MELLITUS WITH HYPERGLYCEMIA 09/26/[address] active 16 UMBILICAL HERNIA WITHOUT OBSTRUCTION OR GANGRENE 09/26/[address] active 17 UNSPECIFIED ATRIAL FIBRILLATION 09/26/[address] active 18 UNSPECIFIED DIASTOLIC (CONGESTIVE) HEART FAILURE 09/26/[address] active 19 UNSPECIFIED INTESTINAL OBSTRUCTION, UNSPECIFIED TO PARTIAL VERSUS COMPLETE OBSTRUCTION 09/26/[address] active 20 URINARY TRACT INFECTION, SITE NOT SPECIFIED 09/26/2023 10/29/[address] completed Reason for Referral No Reasons for Referral Entered Social History Social History Observation Description Start Date End Date Code Code System Current Smoking Status Tobacco smoking consumption unknown 853913556 SNOMED CT Sex Assigned At Female 1950 64327-6 [facility] Gender Identity Sexual Orientation Vital Signs Code Code System Vitals Name Values and Units Timing Information 25513-3 [facility] Pain Level Value=0.0 11/28/2023 9279-1 [facility] Respiratory Rate Value=20.0 Units=/m in 11/28/2023 8462-4 [facility] Blood Pressure-Diastolic Value=78 Un its=mmHg 11/28/2023 8480-6 [facility] Blood Pressure-Systolic Omzfa=556 Un its=mmHg 11/28/2023 8310-5 [facility] Body Temperature Value=97.0 Units= F 11/28/2023 8867-4 [facility] Heart rate Value=76.0 Units=/min 80046-3 [facility] O2 % BldC Oximetry Value=97.0 Units= % 11/28/2023 2339-0 [facility] Blood Sugar Tfrzx=751.0 Units=mg/dL 11/28/2023 96757-7 [facility] Weight Yjcxf=565.0 Units=Lbs 11/2023 8302-2 [facility] Height Value=63.0 Units=Inches 09/26/2023
--- OUTSIDE RECORDS SUMMARY | 2024-12-27 12:14 | XMS_ITS | Clinical Summary ---
Author Organization [facility] Address [address] [place] [address] Care Team Providers Care Racecourse Barrier Attendant Name Role Phone Jose Tovar MD Primary Care Provider Viktor Sierra MD Unavailable Allergies Active Allergy Reactions Criticality Noted Date Comments Amitriptyline Rash Low 05/10/2016 Diclofenac-Misoprostol Rash Low 09/24/2015 Levofloxacin Rash Low 05/10/2016 Nortriptyline Rash Low 05/10/2016 Paroxetine Rash Low 05/10/2016 Sulfa Antibiotics Rash Low 09/24/2015 Medications omeprazole (PriLOSEC) 20 MG CAPSULE DELAYED RELEASEIndicati ons:per patient statement on , only taking this [...] statement). 2 Active warfarin (COUMADIN) 5 MG TabletIndicatio ns:statement from patient I was told to stop [...] MG Capsule Take by mouth. Acti ve Active Problems Problem Noted Date Diagnosed Date Class 3 severe obesity due t o excess calories with serious comorbidity and body mass index (BMI) of 40.0 to 44.9 in adult 08/14/2024 Type 2 diabetes mellitus wit h hyperglycemia, with long-term current use of insulin 08/14/2024 Abnormal cardiovascular stress test 11/19/2021 Overview (11/19/2021): Added automatically from request for surgery [id number] Encounters Date Type Department Care Team Description 12/04/2024 Telephone [facility] [place] [address] Brett Hanks MD 11/26/2024 2:45 PM CDT Clinical Support [facility] [place] [address] [facility] Urinary incontinence, unspecified type (Primary Dx); Hypotonic bladder Discharge Disposition: Discharged to home or Selfcare 11/26/2024 Travel 11/21/2024 11:00 AM CDT Office Visit [facility] [place] [address] Brett Hanks MD Urinary incontinence, unspecified type (Primary Dx); Hypotonic bladder Discharge Disposition: Discharged to home or Selfcare 11/21/2024 Travel 11/13/2024 10:00 AM CDT Clinical Support [facility] [place] [address] [facility] Urine retention (Primary Dx) Discharge Disposition: Discharged to home or Selfcare 11/13/2024 Travel 10/16/2024 10:00 AM CDT Clinical Support [facility] [place] [address] [facility] Urine retention (Primary Dx) Discharge Disposition: Discharged to home or Selfcare 10/16/2024 Travel 10/08/2024 Telephone [facility] [place] [address] Viktor Sierra MD from Last 3 Months Immunizations Immunization Administration Dates Next Due Influenza Vaccine, Quadrivalent, PF 12/01/2021,0 12/01/2020,02/03/2019 Influenza, Quadrivalent, Adjuvanted 02/14/2023 Influenza,Split Virus,Trivalent,Injectable,PF 01/09/2024 MMR Vaccine 01/12/2007 Pneumococcal Vaccine - 13 Valent 11/26/2018 RSV, Recombinant, Protein Workman bunit Rsvpref, Adjuvant Recon (Arexvy) 02/14/2023 Family History Medical History Relation Name Comments Cancer Father lung Cancer Mother breast Chronic Obstructive Pulmonary Disease Mother Relation Name Status Comments Father Mother Social History Tobacco Use Types Packs/Day Years Used Date Smoking Tobacco: Former Cigarettes 1 979 - 2002 Smokeless Tobacco: Never Tobacco Cessation:Counseling Given: Not Answered Alcohol Use Standard Drinks/Week Comments Not Currently 0 (1 standard drink = 0.6 oz pur e alcohol) Comments No Sex and Gender Information Value Date Recorded Sex Assigned at Not on file Legal Sex Female 11:30 AM CDT Gender Identity Not on file Sexual Orientation Not on file Last Filed Vital Signs Vital Sign Reading Time Taken Comments Blood Pressure 113/75 11/21/2024 11:08 AM CDT Pulse 79 11/21/2024 11:08 AM CDT Temperature 36.3 C (97.4 F) 08/14/2024 9:00 AM CDT Respiratory Rate 18 11/21/2024 11:08 AM CDT Oxygen Saturation 98% 11/21/2024 11:08 AM CDT Inhaled Oxygen Concentration - - Weight 104.3 kg (230 lb) 11/21/2024 11:08 AM CDT Height 160 cm (5' 3) 11/21/2024 11:08 AM CDT Body Mass Index 40.74 11/21/2024 11:08 AM CDT Plan of Treatment Health Maintenance Due Date Last Done Comments DEXA Bone Density 1950 Diabetes: Foot Exam 1950 Hepatitis C Virus (HCV) Screening 1950 Mammogram 1950 TdaP Immunization 1950 Zoster Immunization (1 of 2) 06/03/1970 Cologuard 06/03/1996 Colonoscopy 06/03/1996 Colorectal Cancer Screening 06/03/1996 Immunochemical Fecal Occult Blood 06/03/1996 Pneumococcal Immunization (50+ years) (2 of 2 - PPSV23, PCV20, or PCV21) 01/21/2019 11/26/2018 SARS-COV-2 Immunization (3 - Moderna risk series) 07/31/2020 07/03/2020, 06/05/2020 Medicare Initial AWV [id number] 05/11/2022 Diabetes: Nephropathy Screening 11/23/2022 11/23/2021 Diabetes: Eye Exam 11/22/2023 11/21/2022 Diabetes: Hemoglobin A1c 03/17/2024 09/15/2023, 11/12 Influenza Immunization (#1) 11/11/202412/12, 02/14/2023, 12/01/2021, Additional history exists Respiratory Syncytial Virus (RSV) Immunization (Adult) Completed 02/14/2023 Hepatitis B Immunization Aged Out No longer [...] Procedure Name Priority Date/Time Associated Diagnosis Comments CMP (COMPREHENSIVE METABOLIC PANEL) Routine 11/23/2021 10:22 AM CDT from Last 3 Months or Most Recently Relevant to Health Maintenance Results * (ABNORMAL) CMP (Comprehensive Metabolic Panel) (11/23/2021 10:22 AM CDT) SODIUM 137 136 - 144 mmol/L 11/23/2021 10:53 AM CDT [facility] POTASSIUM 5.0 3.5 - 5.1 mmol/L 11/23/2021 10:53 AM CDT [facility] CHLORIDE 103 100 - 110 mmol/L 11/23/2021 10:53 AM CDT [facility] CO2, VENOUS 25 22 - 32 mmol/L 11/23/2021 10:53 AM CDT [facility] ANION GAP 14.0 8.0 - 20.0 mmol/L 11/23/2021 10:53 AM CDT [facility] GLUCOSE 101(H) 70 - 99 mg/dL 11/23/2021 10:53 AM CDT [facility] BUN 35(H) 8 - 23 mg/dL 11/23/2021 10:53 AM CDT [facility] CREATININE, BLOOD 1.45(H) 0.60 - 1.10 mg/dL 11/23/2021 10:53 AM CDT [facility] BUN/CREATININE RATIO 24(H) 12 - 20 ratio 11/23/2021 10:53 AM CDT [facility] TOTAL PROTEIN 7.0 6.0 - 8.3 g/dL 11/23/2021 10:53 AM CDT [facility] ALBUMIN 3.6 3.5 - 5.2 g/dL 11/23/2021 10:53 AM CDT [facility] Comment: The colormetric methods used for the determination of Albumin may lead to falsely elevated test results in patients suffering from renal failure or insufficiency due to interference with other proteins. A/G RATIO 1.1 1.0 - 2.0 11/23/2021 10:53 AM CDT [facility] CALCIUM 9.5 8.9 - 10.3 mg/dL 11/23/2021 10:53 AM CDT [facility] T BILI 0.7 <=1.2 mg/dL 11/23/2021 10:53 AM CDT [facility] SGOT (AST) 142(H) <=32 U/L 11/23/2021 10:53 AM CDT [facility] SGPT (ALT) 101(H) <=41 U/L 11/23/2021 10:53 AM CDT [facility] ALKALINE PHOSPHATASE 212(H) 35 - 105 U/L 11/23/2021 10:53 AM CDT [facility] GFR, ESTIMATED 39(L) >=60 11/23/2021 10:53 AM CDT [facility] Comment: Creatinine Clearance is the preferred criteria for selecting drug dose adjustments in renally impaired patients. The GFR is provided as additional pertinent clinical information. GFR is reported in mL/min/1.73 sq m. Calculation based on the Chronic Kidney Disease Epidemiology Collaboration (CKD- EPI) equation refit without adjustment for race. GFR, EST. 43(L) >=60 022 10:53 AM CDT [facility] GFR, EST. NONAFRICAN 36(L) >=60 11/23/2021 10:53 AM CDT [facility] Blood Venipuncture / Unknown 11/23/2021 10:22 AM CDT 11/23/2021 10:22 AM CDT us Adan Whitehead MD CHEMISTRY ORDERABLES Fi nal Result [facility] [address] [place] [address] from Last 3 Months or Most Recently Relevant to Health Maintenance Insurance MEDICARE C [employer] Advance Directives Documents on File Type Date Recorded Patient Customer Service Cashier Expl anation Other Advance Directive 11/19/2021 4:21 PM CARDIO AUTH Other Advance Directive 11/19/2021 4:13 PM Insurance Prior Auth Other Advance Directive 11/19/2021 11:55 AM insurance card Care Teams Racecourse Barrier Attendant Relationship Specialty Start Date End Date Jose Tovar MD [address] [place] [address] PCP - General Internal Medicine 11/19/21 Viktor Sierra MD [address], [address] [address] Consulting Physician Urology 08/12/24
[2024-12-27 12:17] LABS: NT Pro B Type Natriuretic Pept 1940 pg/mL (19.9-100); Troponin I < 0.012 ng/mL (0.000-0.034)
[2024-12-27 12:23] LABS: Free T4 Free Thyroxine 0.86 ng/dL (0.78-2.19)
[2024-12-27 12:36] LABS: Thyroid Stimulating Hormone 1.260 uIU/mL (0.465-4.680)
== END 2024-12-27 11:25 | disposition home or self-care (01) ==
PROVIDERS: PCP Internal Medicine; Visit Provider Nurse Practitioner Family
DX: R42 Dizziness and giddiness (principal); R51.9 Headache, unspecified; I48.19 Other persistent atrial fibrillation; I50.810 Right heart failure, unspecified; N39.0 Urinary tract infection, site not specified
CPT/HCPCS: 36415; 70450; 80053; 81001; 82550; 82553; 83880; 84439; 84443; 84484; 85027; 85610; 85730; 87077; 87086; 87186